=== PATIENT | female | born 1970 | race Caucasian/White ===

== ENCOUNTER 2017-08-04 08:32 | Emergency (ER) | payer OTHER, SELFPAY ==
[~2017-08-04 08:32] MED LIST: ACEBUTCAFT PO; ALPR.5 PO; AMIT10 PO; AMITRIPTYLINE; AMOX500 PO; AZIT250 PO; BENTYL20 MG PO; BENZ100A PO; BUPR1 TD; BUPR100 PO; BUPR150T2; BUTRANS; CAMBIA50 MG PO; CEPH500 PO; CIPR500 PO; CIPRSO OD; CITA20; CITA20 PO; CLIN300 PO; CRUTCH2 USE; CRUTCH4 USE; CYCL10; CYCL10 PO; DOXE25 PO; DULO60 PO; ESCI10; EXCEDRINE MIGRAINE; FENT100TP TOP; FENT25TP TOP; FENT50TP TOP; FENTANYL; FIORICET 50-321 EACH PO; FLEXERIL; FROV2.5; GABA300 PO; GENT.3OPO TOP; GUAPSEER PO; HYDACE10B PO; HYDACE5; HYDACE5 PO; HYDACE5325 PO; HYDACE7.5 PO; HYDMOR2; HYDMOR4 PO; HYDMOR8 PO; HYDPAM50 PO; HYDR1TAB94 PO; HYOS.125L SL; IBUP200; IBUP400 PO; IBUP800 PO; INAPSINE; Inderal40 MG PO; Inderal60 MG PO; Inderal80 MG PO; LAMO100 PO; LEVOTHYROXINE; LEVSOD100; LEVSOD125; LEVSOD125 PO; LEVSOD150 PO; LEVSOD175 PO; LORA1 PO; LOSARTAN POTASS50 MG PO; MECL25 PO; META800 PO; MOMENI; MORP15ER PO; NAPR500 PO; NAPR550 PO; NORCO; NORT25 PO; ONABOTULINUMTOXINA; ONDA4ODT MM; ONDA4ODT SL; ONDA8ODT MM; OXYACE5T PO; OXYACE7.5T PO; OXYC10TA19 PO; OXYCODONE; PHENERGAN25 MG RC; PRED10 PO; PREG150 PO; PREG75 PO; PROM25; PROM25 PO; PROM25 PR; PROM25S PR; PROMETHAZINE; PROP10 PO; PROP120ER PO; PROPRANOLOL; PSEU30 PO; Percocet 10-321 EACH PO; RANI150 PO; RELISTOR12 MG/0.6; RXHYDACE PO; RXHYOS.125 PO; RXHYOS.125 SL; RXMETA800 PO; RXNAPNA550 PO; RXPROM25S PR; SUMA6I SC; SYNTHROID; Synthroid/Levo0.2 MG PO; Synthroid175 MCG PO; TERB250 PO; TIZA4 PO; TOPI50 PO; TRAM50 PO; VENL150ER PO; VENL37.5 PO; VENL37.5ER PO; VENL75; VIT; Vistaril50 MG PO; ZOLM5 PO; Zantac150 MG PO; Zofran Odt4 MG SL; [UNRECOGNIZED DRUG - OTHER] PO; [UNRECOGNIZED DRUG - REMARK]
[2018-02-26] MEDS ORDERED: ROXICODONE5 MG PO (14:13)
[2018-02-26] MEDS ORDERED: LORA.5 PO (14:13)
[2018-06-30] MEDS ORDERED: Zofran Odt4 MG SL (19:07)
[2018-06-30] MEDS ORDERED: KETO10 PO (20:26)
[2018-07-27] MEDS ORDERED: Roxicodone15 MG PO (14:11)
[2018-07-27] MEDS ORDERED: CLON.5 PO (14:12)
[2018-07-27] MEDS ORDERED: PROM25 PO (14:15)
[2018-07-27] MEDS ORDERED: Phenergan25 M1 PO (17:01)
[2018-07-27] MEDS ORDERED: Phenergan25 MG PR (17:01)
[2019-01-10] MEDS ORDERED: Percocet 5-3251 EACH PO (12:14)
== END 2017-08-04 08:40 | disposition left against medical advice (07) ==
LOC: ER 08:32
DX: Z53.21 Procedure and treatment not carried out due to patient leaving prior to being seen by health care provider (principal)

== ENCOUNTER 2017-08-30 17:27 | Emergency (ER) | payer OTHER, SELFPAY ==
[~2017-08-30] VITALS: Ht 167.6 cm; Wt 99.8 kg
[2018-02-26] MEDS ORDERED: LORA.5 PO (14:13)
[2018-02-26] MEDS ORDERED: ROXICODONE5 MG PO (14:13)
[2018-06-30] MEDS ORDERED: Zofran Odt4 MG SL (19:07)
[2018-06-30] MEDS ORDERED: KETO10 PO (20:26)
[2018-07-27] MEDS ORDERED: Roxicodone15 MG PO (14:11)
[2018-07-27] MEDS ORDERED: CLON.5 PO (14:12)
[2018-07-27] MEDS ORDERED: PROM25 PO (14:15)
[2018-07-27] MEDS ORDERED: Phenergan25 MG PR (17:01)
[2018-07-27] MEDS ORDERED: Phenergan25 M1 PO (17:01)
== END 2017-08-30 17:42 | disposition left against medical advice (07) ==
LOC: ER 17:27
DX: Z53.21 Procedure and treatment not carried out due to patient leaving prior to being seen by health care provider (principal)

== ENCOUNTER 2017-08-30 18:35 | Emergency (ER) | payer OTHER, SELFPAY ==
[~2017-08-30] VITALS: Ht 167.6 cm; Wt 99.8 kg
[2018-02-26] MEDS ORDERED: ROXICODONE5 MG PO (14:13)
[2018-02-26] MEDS ORDERED: LORA.5 PO (14:13)
[2018-06-30] MEDS ORDERED: Zofran Odt4 MG SL (19:07)
[2018-06-30] MEDS ORDERED: KETO10 PO (20:26)
[2018-07-27] MEDS ORDERED: Roxicodone15 MG PO (14:11)
[2018-07-27] MEDS ORDERED: CLON.5 PO (14:12)
[2018-07-27] MEDS ORDERED: PROM25 PO (14:15)
[2018-07-27] MEDS ORDERED: Phenergan25 M1 PO (17:01)
[2018-07-27] MEDS ORDERED: Phenergan25 MG PR (17:01)
== END 2017-08-30 20:08 | disposition home or self-care (01) ==
LOC: ER 18:35
DX: F41.9 Anxiety disorder, unspecified (principal); Z88.2 Allergy status to sulfonamides; Z88.8 Allergy status to other drugs, medicaments and biological substances; Z79.899 Other long term (current) drug therapy; Z90.710 Acquired absence of both cervix and uterus; Z90.89 Acquired absence of other organs
CPT/HCPCS: 96372; 99283; J2060

== ENCOUNTER 2017-09-16 05:03 | Emergency (ER) | payer SELFPAY ==
[~2017-09-16] VITALS: Ht 167.6 cm; Wt 99.8 kg
[2017-09-16] MEDS ORDERED: BP MED (05:17)
[2018-02-26] MEDS ORDERED: ROXICODONE5 MG PO (14:13)
[2018-02-26] MEDS ORDERED: LORA.5 PO (14:13)
[2018-06-30] MEDS ORDERED: Zofran Odt4 MG SL (19:07)
[2018-06-30] MEDS ORDERED: KETO10 PO (20:26)
[2018-07-27] MEDS ORDERED: Roxicodone15 MG PO (14:11)
[2018-07-27] MEDS ORDERED: CLON.5 PO (14:12)
[2018-07-27] MEDS ORDERED: PROM25 PO (14:15)
[2018-07-27] MEDS ORDERED: Phenergan25 M1 PO (17:01)
[2018-07-27] MEDS ORDERED: Phenergan25 MG PR (17:01)
== END 2017-09-16 06:09 | disposition home or self-care (01) ==
LOC: ER 05:03
DX: R51 Headache (principal); Z88.2 Allergy status to sulfonamides; Z88.8 Allergy status to other drugs, medicaments and biological substances; Z79.899 Other long term (current) drug therapy; G43.909 Migraine, unspecified, not intractable, without status migrainosus; F41.9 Anxiety disorder, unspecified; Z87.891 Personal history of nicotine dependence
CPT/HCPCS: 96372; 99283; J1200; J1885; J2550

== ENCOUNTER 2017-09-19 17:58 | Emergency (ER) | payer SELFPAY ==
[~2017-09-19] VITALS: Ht 167.6 cm; Wt 99.8 kg
[~2017-09-19 17:58] MED LIST changes: +BP MED
[2017-09-19] MEDS ORDERED: PROPRANOL (18:19)
[2018-02-26] MEDS ORDERED: ROXICODONE5 MG PO (14:13)
[2018-02-26] MEDS ORDERED: LORA.5 PO (14:13)
[2018-06-30] MEDS ORDERED: Zofran Odt4 MG SL (19:07)
[2018-06-30] MEDS ORDERED: KETO10 PO (20:26)
[2018-07-27] MEDS ORDERED: Roxicodone15 MG PO (14:11)
[2018-07-27] MEDS ORDERED: CLON.5 PO (14:12)
[2018-07-27] MEDS ORDERED: PROM25 PO (14:15)
[2018-07-27] MEDS ORDERED: Phenergan25 MG PR (17:01)
[2018-07-27] MEDS ORDERED: Phenergan25 M1 PO (17:01)
== END 2017-09-19 20:39 | disposition home or self-care (01) ==
LOC: ER 17:58
DX: F41.0 Panic disorder [episodic paroxysmal anxiety] (principal); Z88.2 Allergy status to sulfonamides; Z88.8 Allergy status to other drugs, medicaments and biological substances; Z79.899 Other long term (current) drug therapy; Z90.710 Acquired absence of both cervix and uterus; Z90.89 Acquired absence of other organs; Z87.891 Personal history of nicotine dependence
CPT/HCPCS: 99283

== ENCOUNTER 2017-09-28 18:28 | Emergency (ER) | payer SELFPAY ==
[~2017-09-28] VITALS: Ht 167.6 cm; Wt 99.8 kg
[~2017-09-28 18:28] MED LIST changes: +PROPRANOL
[2017-09-28 19:55] LABS: BASOPHILS ABSOLUTE AUTO 0.04 K/mm3 (0.00-0.23); BASOPHILS PERCENT AUTO 0 % (0-2); EOSINOPHILS ABSOLUTE AUTO 0.05 K/mm3 (0.00-0.68); EOSINOPHILS PERCENT AUTO 1 % (0-6); Hematocrit 40.2 % (33.0-51.0); Hemoglobin 14.1 g/dL (11.5-16.0); IMMATURE GRAN ABSOLUTE AUTO 0.04 K/mm3 (0.00-0.10); IMMATURE GRAN PERCENT AUTO 0 % (0-1); LYMPHOCYTES ABSOLUTE AUTO 1.06 K/mm3 (0.84-5.20); LYMPHOCYTES PERCENT AUTO 10 % (21-46); MONOCYTES ABSOLUTE AUTO 0.57 K/mm3 (0.16-1.47); MONOCYTES PERCENT AUTO 6 % (4-13); Mean Corpuscular HGB 30.6 pg (26.0-34.0); Mean Corpuscular HGB Conc 35.1 g/dL (31.5-36.5); Mean Corpuscular Volume 87 fL (80-100); Mean Platelet Volume 9.6 fL (9.1-12.4); NEUTROPHILS ABSOLUTE AUTO 8.44 K/mm3 (1.96-9.15); NEUTROPHILS PERCENT AUTO 83 % (41-73); Platelet Count 334 K/mm3 (150-400); RDW Coefficient Variation 12.3 % (11.7-14.2); RDW Standard Deviation 39.3 fL (35.1-46.3); Red Blood Cell Count 4.61 M/mm3 (3.80-5.20)
[2017-09-28 20:16] LABS: Alanine Aminotransfer (ALT/SGP 24 U/L (12-78); Albumin, Blood 3.6 g/dL (3.4-5.0); Alk Phos 79 U/L (50-136); Anion Gap 10 mmol/L (6-16); Aspartate Aminotrans (AST/SGOT 17 U/L (12-37); Bilirubin, Total 0.8 mg/dL (0.1-1.0); Blood Urea Nitrogen 12 mg/dL (8-24); Bun/Creatinine Ratio 12.6 (12.0-20.0); CO2, Blood 22 mmol/L (21-32); Calcium, Blood 9.6 mg/dL (8.5-10.1); Chloride, Blood 110 mmol/L (98-108); Creatinine, Blood 0.96 mg/dL (0.40-1.00); Globulin, Blood 3.7 g/dL (2.2-4.0); Glomerular Filtration Rate >60 (60-); Glucose, Blood 114 mg/dL (70-99); Sodium, Blood 142 mmol/L (136-145); Total Protein, Blood 7.3 g/dL (6.4-8.2)
[2017-09-28 21:08] LABS: Ethanol (Alcohol), Blood, Med <3 mg/dL
[2017-09-28 22:29] LABS: Source, Urine Clean Catch
[2017-09-28 22:36] LABS: Bilirubin, Urine Neg (Neg); Blood, Urine 1+ (Neg); Glucose Qualitative, Urine Neg (Neg); Ketones, Urine Neg (Neg); Leukocyte Esterase, Urine 3+ (Neg); Nitrite, Urine Neg (Neg); Protein, Urine 2+ (Neg); Urobilinogen, Urine NORM (Normal)
[2017-09-28 22:43] LABS: Appearance, Urine Hazy (Clear); Color, Urine Yellow (P-Yellow)
[2017-09-28 22:44] LABS: Bacteria Many /hpf; Squamous Epithelial Cells Few /hpf (Few); White Blood Cells, Urine 25-50 /hpf (0-5)
[2017-09-28] MEDS ORDERED: Zofran8 MG PO (22:48)
[2017-09-28] MEDS ORDERED: Amoxicillin500 MG PO (22:48)
[2017-09-28 23:03] LABS: U Amphetamine Screen Not Detected; U Barbituate Screen Not Detected; U Benzodiazapine Screen DETECTED; U Buprenorphine Screen Not Detected; U Cannabinoids Screen DETECTED; U Cocaine Screen Not Detected; U Methadone Screen Not Detected; U Methamphetamine Screen Not Detected; U Opiates Screen DETECTED; U Oxycodone Screen DETECTED; U Phencyclidine Screen Not Detected; U Propoxyphene Screen Not Detected
[2018-02-26] MEDS ORDERED: LORA.5 PO (14:13)
[2018-02-26] MEDS ORDERED: ROXICODONE5 MG PO (14:13)
[2018-06-30] MEDS ORDERED: Zofran Odt4 MG SL (19:07)
[2018-06-30] MEDS ORDERED: KETO10 PO (20:26)
[2018-07-27] MEDS ORDERED: Roxicodone15 MG PO (14:11)
[2018-07-27] MEDS ORDERED: CLON.5 PO (14:12)
[2018-07-27] MEDS ORDERED: PROM25 PO (14:15)
[2018-07-27] MEDS ORDERED: Phenergan25 M1 PO (17:01)
[2018-07-27] MEDS ORDERED: Phenergan25 MG PR (17:01)
== END 2017-09-28 23:15 | disposition home or self-care (01) ==
LOC: ER 18:28
PROVIDERS: Emergency Medicine
DX: R10.33 Periumbilical pain (principal); N39.0 Urinary tract infection, site not specified; I10 Essential (primary) hypertension; E03.9 Hypothyroidism, unspecified; Z90.710 Acquired absence of both cervix and uterus; Z90.89 Acquired absence of other organs; Z87.891 Personal history of nicotine dependence; Z86.59 Personal history of other mental and behavioral disorders
CPT/HCPCS: 36415; 51701; 74177; 80053; 81001; 83690; 85025; 87086; 96374; 96375; 96376; 99284; G0480; J0696; J1170; J2060; J2405; J7120; Q9967

== ENCOUNTER 2017-09-30 08:05 | Emergency (ER) | payer OTHER, SELFPAY ==
[~2017-09-30] VITALS: Ht 167.6 cm; Wt 99.8 kg
[~2017-09-30 08:05] MED LIST changes: +Amoxicillin500 MG PO; +Zofran8 MG PO
[2017-09-30 09:47] LABS: BASOPHILS ABSOLUTE AUTO 0.05 K/mm3 (0.00-0.23); BASOPHILS PERCENT AUTO 1 % (0-2); EOSINOPHILS ABSOLUTE AUTO 0.14 K/mm3 (0.00-0.68); EOSINOPHILS PERCENT AUTO 2 % (0-6); Hematocrit 41.2 % (33.0-51.0); IMMATURE GRAN ABSOLUTE AUTO 0.02 K/mm3 (0.00-0.10); IMMATURE GRAN PERCENT AUTO 0 % (0-1); LYMPHOCYTES ABSOLUTE AUTO 1.44 K/mm3 (0.84-5.20); LYMPHOCYTES PERCENT AUTO 19 % (21-46); MONOCYTES ABSOLUTE AUTO 0.73 K/mm3 (0.16-1.47); MONOCYTES PERCENT AUTO 10 % (4-13); Mean Corpuscular HGB 30.2 pg (26.0-34.0); Mean Corpuscular Volume 89 fL (80-100); Mean Platelet Volume 9.6 fL (9.1-12.4); NEUTROPHILS ABSOLUTE AUTO 5.08 K/mm3 (1.96-9.15); NEUTROPHILS PERCENT AUTO 68 % (41-73); Platelet Count 300 K/mm3 (150-400); RDW Coefficient Variation 12.1 % (11.7-14.2); RDW Standard Deviation 39.5 fL (35.1-46.3); Red Blood Cell Count 4.63 M/mm3 (3.80-5.20); White Blood Cell Count 7.46 K/mm3 (4.00-11.30)
[2017-09-30 10:05] LABS: Alanine Aminotransfer (ALT/SGP 30 U/L (12-78); Albumin, Blood 3.8 g/dL (3.4-5.0); Alk Phos 76 U/L (50-136); Anion Gap 11 mmol/L (6-16); Aspartate Aminotrans (AST/SGOT 18 U/L (12-37); Bilirubin, Total 0.7 mg/dL (0.1-1.0); Blood Urea Nitrogen 13 mg/dL (8-24); Bun/Creatinine Ratio 14.4 (12.0-20.0); CO2, Blood 23 mmol/L (21-32); Calcium, Blood 8.9 mg/dL (8.5-10.1); Chloride, Blood 108 mmol/L (98-108); Globulin, Blood 3.7 g/dL (2.2-4.0); Glomerular Filtration Rate >60 (60-); Glucose, Blood 96 mg/dL (70-99); Potassium, Blood 3.4 mmol/L (3.5-5.5); Sodium, Blood 142 mmol/L (136-145); Total Protein, Blood 7.5 g/dL (6.4-8.2)
[2017-09-30 12:38] LABS: Source, Urine Clean Catch
[2017-09-30 12:41] LABS: Blood, Urine 1+ (Neg); Glucose Qualitative, Urine Neg (Neg); Ketones, Urine 1+ (Neg); Leukocyte Esterase, Urine 3+ (Neg); Nitrite, Urine Pos (Neg); Protein, Urine 2+ (Neg); Specific Gravity, Urine 1.015 (1.003-1.022); Urobilinogen, Urine 2+ (Normal); pH, Urine 6.5 (5.0-8.0)
[2017-09-30 12:47] LABS: Appearance, Urine Hazy (Clear); Bilirubin, Urine 2+ (Neg); Color, Urine Orange (P-Yellow)
[2017-09-30 12:49] LABS: Bacteria Mod /hpf; Squamous Epithelial Cells Mod /hpf (Few); White Blood Cells, Urine 25-50 /hpf (0-5)
[2018-02-26] MEDS ORDERED: LORA.5 PO (14:13)
[2018-02-26] MEDS ORDERED: ROXICODONE5 MG PO (14:13)
[2018-06-30] MEDS ORDERED: Zofran Odt4 MG SL (19:07)
[2018-06-30] MEDS ORDERED: KETO10 PO (20:26)
[2018-07-27] MEDS ORDERED: Roxicodone15 MG PO (14:11)
[2018-07-27] MEDS ORDERED: CLON.5 PO (14:12)
[2018-07-27] MEDS ORDERED: PROM25 PO (14:15)
[2018-07-27] MEDS ORDERED: Phenergan25 M1 PO (17:01)
[2018-07-27] MEDS ORDERED: Phenergan25 MG PR (17:01)
== END 2017-09-30 14:02 | disposition home or self-care (01) ==
LOC: ER 08:05
PROVIDERS: Emergency Medicine
DX: N39.0 Urinary tract infection, site not specified (principal); R11.2 Nausea with vomiting, unspecified; Z88.2 Allergy status to sulfonamides; Z88.8 Allergy status to other drugs, medicaments and biological substances; Z79.899 Other long term (current) drug therapy; Z79.2 Long term (current) use of antibiotics; G43.909 Migraine, unspecified, not intractable, without status migrainosus; F41.9 Anxiety disorder, unspecified
CPT/HCPCS: 36415; 80053; 81001; 81025; 83690; 85025; 87086; 96365; 96375; 99284; J0696; J1200; J1885; J2405; J2550; J3010; J7030

== ENCOUNTER 2017-10-24 17:44 | Emergency (ER) | payer OTHER, SELFPAY ==
[~2017-10-24] VITALS: Ht 167.6 cm; Wt 99.3 kg
[2017-10-24] MEDS ORDERED: LISI5 (18:51)
[2018-02-26] MEDS ORDERED: LORA.5 PO (14:13)
[2018-02-26] MEDS ORDERED: ROXICODONE5 MG PO (14:13)
[2018-06-30] MEDS ORDERED: Zofran Odt4 MG SL (19:07)
[2018-06-30] MEDS ORDERED: KETO10 PO (20:26)
[2018-07-27] MEDS ORDERED: Roxicodone15 MG PO (14:11)
[2018-07-27] MEDS ORDERED: CLON.5 PO (14:12)
[2018-07-27] MEDS ORDERED: PROM25 PO (14:15)
[2018-07-27] MEDS ORDERED: Phenergan25 MG PR (17:01)
[2018-07-27] MEDS ORDERED: Phenergan25 M1 PO (17:01)
== END 2017-10-24 20:13 | disposition home or self-care (01) ==
LOC: ER 17:44
DX: F41.8 Other specified anxiety disorders (principal); Z87.891 Personal history of nicotine dependence; Z88.2 Allergy status to sulfonamides; Z88.8 Allergy status to other drugs, medicaments and biological substances; Z79.899 Other long term (current) drug therapy
CPT/HCPCS: 99283

== ENCOUNTER 2017-12-28 23:23 | Emergency (ER) | payer OTHER ==
[~2017-12-28 23:23] MED LIST changes: +LISI5
== END 2017-12-28 23:46 | disposition left against medical advice (07) ==
LOC: ER 23:23
DX: Z53.21 Procedure and treatment not carried out due to patient leaving prior to being seen by health care provider (principal)

== ENCOUNTER 2018-01-19 14:23 | Emergency (ER) | payer SELFPAY ==
[2018-01-19] MEDS ORDERED: LORA1 PO (18:25)
== END 2018-01-19 15:09 | disposition left against medical advice (07) ==
LOC: ER 14:23
DX: Z53.21 Procedure and treatment not carried out due to patient leaving prior to being seen by health care provider (principal)

== ENCOUNTER 2018-01-19 17:33 | Emergency (ER) | payer SELFPAY ==
[~2018-01-19] VITALS: Ht 167.6 cm; Wt 104.3 kg
[2018-01-19] MEDS ORDERED: LORA1 PO (18:25)
== END 2018-01-19 19:28 | disposition left against medical advice (07) ==
LOC: ER 17:33
DX: Z53.21 Procedure and treatment not carried out due to patient leaving prior to being seen by health care provider (principal)

== ENCOUNTER 2018-01-26 13:56 | Inpatient (IN) | payer SELFPAY ==
[~2018-01-26] VITALS: Ht 167.6 cm; Wt 96.7 kg
[2018-01-26 15:46] LABS: BASOPHILS ABSOLUTE AUTO 0.08 K/mm3 (0.00-0.23); BASOPHILS PERCENT AUTO 0 % (0-2); EOSINOPHILS ABSOLUTE AUTO 0.05 K/mm3 (0.00-0.68); EOSINOPHILS PERCENT AUTO 0 % (0-6); Hematocrit 47.6 % (33.0-51.0); Hemoglobin 16.7 g/dL (11.5-16.0); IMMATURE GRAN ABSOLUTE AUTO 0.09 K/mm3 (0.00-0.10); IMMATURE GRAN PERCENT AUTO 0 % (0-1); LYMPHOCYTES ABSOLUTE AUTO 1.85 K/mm3 (0.84-5.20); LYMPHOCYTES PERCENT AUTO 8 % (21-46); MONOCYTES ABSOLUTE AUTO 1.17 K/mm3 (0.16-1.47); MONOCYTES PERCENT AUTO 5 % (4-13); Mean Corpuscular HGB 30.8 pg (26.0-34.0); Mean Corpuscular HGB Conc 35.1 g/dL (31.5-36.5); Mean Corpuscular Volume 88 fL (80-100); Mean Platelet Volume 9.6 fL (9.1-12.4); NEUTROPHILS ABSOLUTE AUTO 19.66 K/mm3 (1.96-9.15); NEUTROPHILS PERCENT AUTO 86 % (41-73); Platelet Count 512 K/mm3 (150-400); RDW Coefficient Variation 12.3 % (11.7-14.2); RDW Standard Deviation 39.4 fL (35.1-46.3); Red Blood Cell Count 5.42 M/mm3 (3.80-5.20)
[2018-01-26 16:05] LABS: Alanine Aminotransfer (ALT/SGP 17 U/L (12-78); Albumin, Blood 4.6 g/dL (3.4-5.0); Albumin/Globulin Ratio 1.1 (0.8-1.8); Alk Phos 95 U/L (50-136); Anion Gap 13 mmol/L (6-16); Aspartate Aminotrans (AST/SGOT 14 U/L (12-37); Bilirubin, Total 1.1 mg/dL (0.1-1.0); Blood Urea Nitrogen 20 mg/dL (8-24); Bun/Creatinine Ratio 20.3 (12.0-20.0); CO2, Blood 18 mmol/L (21-32); Calcium, Blood 10.4 mg/dL (8.5-10.1); Chloride, Blood 105 mmol/L (98-108); Creatinine, Blood 0.98 mg/dL (0.40-1.00); Globulin, Blood 4.3 g/dL (2.2-4.0); Glomerular Filtration Rate >60 (60-); Glucose, Blood 102 mg/dL (70-99); Potassium, Blood 3.6 mmol/L (3.5-5.5); Sodium, Blood 136 mmol/L (136-145); Total Protein, Blood 8.9 g/dL (6.4-8.2)
[2018-01-26 20:23] LABS: CHOL/HDL RATIO 6.5; Cholesterol 373 mg/dL (50-200); HDL Cholesterol 57 mg/dL (>39); LDL/HDL RATIO 4.7; Low Density Lipoprotein Chol 265 mg/dL (0-110); Triglycerides 253 mg/dL (30-160); Very Low Density Lipoprot Chol 50 mg/dL (6-32)
[2018-01-26] MEDS ORDERED: PROM25 PO (22:15)
[2018-01-26] MEDS ORDERED: OMEPRAZOLE MAGN20 MG PO (22:16)
[2018-01-27 00:39] LABS: Source, Urine Clean Catch
[2018-01-27 00:41] LABS: Bilirubin, Urine Neg (Neg); Blood, Urine Neg (Neg); Glucose Qualitative, Urine Neg (Neg); Ketones, Urine Neg (Neg); Leukocyte Esterase, Urine Neg (Neg); Nitrite, Urine Neg (Neg); Protein, Urine 3+ (Neg); Urobilinogen, Urine NORM (Normal)
[2018-01-27 00:48] LABS: Appearance, Urine Cloudy (Clear); Color, Urine Yellow (P-Yellow)
[2018-01-27 00:49] LABS: Amorphous Heavy (0-Heavy); Bacteria Mod /hpf; Red Blood Cells, Urine 0-2 /hpf (0-2); Squamous Epithelial Cells Few /hpf (Few)
[2018-01-27 03:49] LABS: Hematocrit 42.9 % (33.0-51.0); Hemoglobin 14.7 g/dL (11.5-16.0); Mean Corpuscular HGB 30.6 pg (26.0-34.0); Mean Corpuscular HGB Conc 34.3 g/dL (31.5-36.5); Mean Corpuscular Volume 89 fL (80-100); Mean Platelet Volume 9.5 fL (9.1-12.4); Platelet Count 380 K/mm3 (150-400); RDW Coefficient Variation 12.3 % (11.7-14.2); RDW Standard Deviation 40.7 fL (35.1-46.3); Red Blood Cell Count 4.81 M/mm3 (3.80-5.20); White Blood Cell Count 12.03 K/mm3 (4.00-11.30)
[2018-01-27 04:08] LABS: Albumin, Blood 3.8 g/dL (3.4-5.0); Albumin/Globulin Ratio 1.1 (0.8-1.8); Bilirubin, Total 1.1 mg/dL (0.1-1.0); Bun/Creatinine Ratio 20.7 (12.0-20.0); Creatinine, Blood 1.16 mg/dL (0.40-1.00); Globulin, Blood 3.6 g/dL (2.2-4.0); Potassium, Blood 3.7 mmol/L (3.5-5.5); Total Protein, Blood 7.4 g/dL (6.4-8.2)
[2018-01-28 04:55] LABS: Hematocrit 38.2 % (33.0-51.0); Mean Corpuscular HGB 30.6 pg (26.0-34.0); Mean Corpuscular Volume 90 fL (80-100); Mean Platelet Volume 9.8 fL (9.1-12.4); Platelet Count 305 K/mm3 (150-400); RDW Coefficient Variation 12.3 % (11.7-14.2); RDW Standard Deviation 40.7 fL (35.1-46.3); Red Blood Cell Count 4.25 M/mm3 (3.80-5.20); White Blood Cell Count 6.73 K/mm3 (4.00-11.30)
[2018-01-28 05:21] LABS: Anion Gap 8 mmol/L (6-16); Blood Urea Nitrogen 16 mg/dL (8-24); Bun/Creatinine Ratio 16.2 (12.0-20.0); CO2, Blood 22 mmol/L (21-32); Calcium, Blood 8.6 mg/dL (8.5-10.1); Chloride, Blood 110 mmol/L (98-108); Creatinine, Blood 0.99 mg/dL (0.40-1.00); Glomerular Filtration Rate >60 (60-); Glucose, Blood 80 mg/dL (70-99); Potassium, Blood 3.7 mmol/L (3.5-5.5); Sodium, Blood 140 mmol/L (136-145)
[2018-01-29 04:43] LABS: Albumin, Blood 3.5 g/dL (3.4-5.0); Anion Gap 10 mmol/L (6-16); Blood Urea Nitrogen 15 mg/dL (8-24); Bun/Creatinine Ratio 16.6 (12.0-20.0); CO2, Blood 22 mmol/L (21-32); Calcium, Blood 8.7 mg/dL (8.5-10.1); Chloride, Blood 110 mmol/L (98-108); Glomerular Filtration Rate >60 (60-); Glucose, Blood 94 mg/dL (70-99); Potassium, Blood 3.6 mmol/L (3.5-5.5); Sodium, Blood 142 mmol/L (136-145)
[2018-01-30 05:32] LABS: Hematocrit 41.2 % (33.0-51.0); Hemoglobin 13.6 g/dL (11.5-16.0); Mean Corpuscular Volume 91 fL (80-100); Mean Platelet Volume 9.9 fL (9.1-12.4); Platelet Count 332 K/mm3 (150-400); RDW Coefficient Variation 12.6 % (11.7-14.2); RDW Standard Deviation 41.6 fL (35.1-46.3); Red Blood Cell Count 4.54 M/mm3 (3.80-5.20); White Blood Cell Count 7.85 K/mm3 (4.00-11.30)
[2018-01-30 05:32] LABS: Adenovirus F 40/41 Not Detected (NOT DETECT); Astrovirus Not Detected (NOT DETECT); Campylobacter Sp Not Detected (NOT DETECT); Cryptosporidium Not Detected (NOT DETECT); Cyclospora Cayetanensis Not Detected (NOT DETECT); E. Coli O157 Not Detected (NOT DETECT); Entamoeba Histolytica Not Detected (NOT DETECT); Enteroaggregative E. coli-EAEC Not Detected (NOT DETECT); Enteropathogenic E. coli-EPEC Not Detected (NOT DETECT); Enterotoxigenic E. coli-ETEC Not Detected (NOT DETECT); Giardia Lamblia Not Detected (NOT DETECT); Norovirus GI/GII Not Detected (NOT DETECT); Plesiomonas Shigelloides Not Detected (NOT DETECT); Rotavirus A Not Detected (NOT DETECT); Salmonella Sp Not Detected (NOT DETECT); Sapovirus Not Detected (NOT DETECT); Shiga Toxin-prod E. coli-STEC Not Detected (NOT DETECT); Shigella/Enteroin E. coli-EIEC Not Detected (NOT DETECT); Vibrio Cholerae Not Detected (NOT DETECT); Vibrio Sp Not Detected (NOT DETECT); Yersinia Enterocolitica Not Detected (NOT DETECT)
[2018-01-30 05:50] LABS: Albumin, Blood 3.4 g/dL (3.4-5.0); Anion Gap 9 mmol/L (6-16); Blood Urea Nitrogen 13 mg/dL (8-24); Bun/Creatinine Ratio 12.4 (12.0-20.0); CO2, Blood 24 mmol/L (21-32); Calcium, Blood 8.8 mg/dL (8.5-10.1); Chloride, Blood 109 mmol/L (98-108); Creatinine, Blood 1.05 mg/dL (0.40-1.00); Glomerular Filtration Rate 60 (60-); Glucose, Blood 109 mg/dL (70-99); Phosphorus, Blood 3.2 mg/dL (2.5-4.9); Potassium, Blood 3.2 mmol/L (3.5-5.5); Sodium, Blood 142 mmol/L (136-145)
[2018-01-31 04:53] LABS: Anion Gap 8 mmol/L (6-16); Blood Urea Nitrogen 11 mg/dL (8-24); Bun/Creatinine Ratio 11.9 (12.0-20.0); CO2, Blood 24 mmol/L (21-32); Chloride, Blood 111 mmol/L (98-108); Creatinine, Blood 0.92 mg/dL (0.40-1.00); Glomerular Filtration Rate >60 (60-); Glucose, Blood 104 mg/dL (70-99); Potassium, Blood 3.7 mmol/L (3.5-5.5); Sodium, Blood 143 mmol/L (136-145)
[2018-01-31 05:21] LABS: BASOPHILS ABSOLUTE AUTO 0.04 K/mm3 (0.00-0.23); BASOPHILS PERCENT AUTO 1 % (0-2); EOSINOPHILS ABSOLUTE AUTO 0.27 K/mm3 (0.00-0.68); EOSINOPHILS PERCENT AUTO 4 % (0-6); Hematocrit 40.1 % (33.0-51.0); Hemoglobin 13.4 g/dL (11.5-16.0); IMMATURE GRAN ABSOLUTE AUTO 0.03 K/mm3 (0.00-0.10); IMMATURE GRAN PERCENT AUTO 0 % (0-1); LYMPHOCYTES ABSOLUTE AUTO 2.39 K/mm3 (0.84-5.20); LYMPHOCYTES PERCENT AUTO 32 % (21-46); MONOCYTES ABSOLUTE AUTO 0.68 K/mm3 (0.16-1.47); MONOCYTES PERCENT AUTO 9 % (4-13); Mean Corpuscular HGB 30.7 pg (26.0-34.0); Mean Corpuscular HGB Conc 33.4 g/dL (31.5-36.5); Mean Corpuscular Volume 92 fL (80-100); Mean Platelet Volume 10.2 fL (9.1-12.4); NEUTROPHILS PERCENT AUTO 55 % (41-73); Platelet Count 324 K/mm3 (150-400); RDW Coefficient Variation 12.5 % (11.7-14.2); RDW Standard Deviation 42.5 fL (35.1-46.3); Red Blood Cell Count 4.36 M/mm3 (3.80-5.20); White Blood Cell Count 7.51 K/mm3 (4.00-11.30)
[2018-02-02 04:42] LABS: BASOPHILS ABSOLUTE AUTO 0.04 K/mm3 (0.00-0.23); BASOPHILS PERCENT AUTO 1 % (0-2); EOSINOPHILS ABSOLUTE AUTO 0.41 K/mm3 (0.00-0.68); EOSINOPHILS PERCENT AUTO 5 % (0-6); Hematocrit 41.6 % (33.0-51.0); Hemoglobin 13.8 g/dL (11.5-16.0); IMMATURE GRAN ABSOLUTE AUTO 0.04 K/mm3 (0.00-0.10); IMMATURE GRAN PERCENT AUTO 1 % (0-1); LYMPHOCYTES ABSOLUTE AUTO 2.74 K/mm3 (0.84-5.20); LYMPHOCYTES PERCENT AUTO 36 % (21-46); MONOCYTES ABSOLUTE AUTO 0.68 K/mm3 (0.16-1.47); MONOCYTES PERCENT AUTO 9 % (4-13); Mean Corpuscular HGB 30.8 pg (26.0-34.0); Mean Corpuscular HGB Conc 33.2 g/dL (31.5-36.5); Mean Corpuscular Volume 93 fL (80-100); Mean Platelet Volume 10.2 fL (9.1-12.4); NEUTROPHILS ABSOLUTE AUTO 3.75 K/mm3 (1.96-9.15); NEUTROPHILS PERCENT AUTO 49 % (41-73); Platelet Count 288 K/mm3 (150-400); RDW Coefficient Variation 12.6 % (11.7-14.2); RDW Standard Deviation 42.7 fL (35.1-46.3); Red Blood Cell Count 4.48 M/mm3 (3.80-5.20); White Blood Cell Count 7.66 K/mm3 (4.00-11.30)
[2018-02-02 04:59] LABS: Anion Gap 10 mmol/L (6-16); Blood Urea Nitrogen 12 mg/dL (8-24); Bun/Creatinine Ratio 11.5 (12.0-20.0); CO2, Blood 22 mmol/L (21-32); Calcium, Blood 8.7 mg/dL (8.5-10.1); Chloride, Blood 110 mmol/L (98-108); Creatinine, Blood 1.04 mg/dL (0.40-1.00); Glomerular Filtration Rate >60 (60-); Glucose, Blood 91 mg/dL (70-99); Potassium, Blood 3.7 mmol/L (3.5-5.5); Sodium, Blood 142 mmol/L (136-145)
== END 2018-02-02 18:27 | disposition short-term general hospital (02) | DRG 392 ==
LOC: ER 13:56 → MEDS 20:14
PROVIDERS: Emergency Medicine; Hospitalist; Internal Medicine
DX: K52.9 Noninfective gastroenteritis and colitis, unspecified (principal); I10 Essential (primary) hypertension; E03.9 Hypothyroidism, unspecified; E87.6 Hypokalemia; E86.0 Dehydration; Z88.2 Allergy status to sulfonamides; Z88.8 Allergy status to other drugs, medicaments and biological substances; F41.9 Anxiety disorder, unspecified; E66.9 Obesity, unspecified; Z68.34 Body mass index [BMI] 34.0-34.9, adult
CPT/HCPCS: 36415; 74176; 74177; 76705; 80048; 80053; 80061; 80069; 81001; 83605; 83690; 84145; 85025; 85027; 85651; 87086; 87507; 96365; 96372; 96375; 96376; 99285; J0500; J1650; J1885; J1956; J2270; J2405; J2543; J2550; J3010; J7030; Q9967

== ENCOUNTER 2018-02-11 15:18 | Inpatient (IN) | payer SELFPAY ==
[~2018-02-11] VITALS: Ht 167.6 cm; Wt 99.1 kg
[~2018-02-11 15:18] MED LIST changes: +OMEPRAZOLE MAGN20 MG PO
[2018-02-11 16:03] LABS: BASOPHILS ABSOLUTE AUTO 0.03 K/mm3 (0.00-0.23); BASOPHILS PERCENT AUTO 0 % (0-2); EOSINOPHILS ABSOLUTE AUTO 0.21 K/mm3 (0.00-0.68); EOSINOPHILS PERCENT AUTO 2 % (0-6); Hemoglobin 14.3 g/dL (11.5-16.0); IMMATURE GRAN ABSOLUTE AUTO 0.02 K/mm3 (0.00-0.10); IMMATURE GRAN PERCENT AUTO 0 % (0-1); LYMPHOCYTES ABSOLUTE AUTO 1.86 K/mm3 (0.84-5.20); LYMPHOCYTES PERCENT AUTO 17 % (21-46); MONOCYTES ABSOLUTE AUTO 0.73 K/mm3 (0.16-1.47); MONOCYTES PERCENT AUTO 7 % (4-13); Mean Corpuscular HGB 30.7 pg (26.0-34.0); Mean Corpuscular HGB Conc 34.9 g/dL (31.5-36.5); NEUTROPHILS ABSOLUTE AUTO 8.17 K/mm3 (1.96-9.15); NEUTROPHILS PERCENT AUTO 74 % (41-73); Platelet Count 344 K/mm3 (150-400); RDW Coefficient Variation 12.3 % (11.7-14.2); RDW Standard Deviation 39.8 fL (35.1-46.3); Red Blood Cell Count 4.66 M/mm3 (3.80-5.20); White Blood Cell Count 11.02 K/mm3 (4.00-11.30)
[2018-02-11 16:04] LABS: Mean Corpuscular Volume 88 fL (80-100)
[2018-02-11 16:18] LABS: Alanine Aminotransfer (ALT/SGP 19 U/L (12-78); Albumin, Blood 3.8 g/dL (3.4-5.0); Alk Phos 82 U/L (50-136); Anion Gap 11 mmol/L (6-16); Aspartate Aminotrans (AST/SGOT 8 U/L (12-37); Bilirubin, Total 0.6 mg/dL (0.1-1.0); Blood Urea Nitrogen 10 mg/dL (8-24); Bun/Creatinine Ratio 13.2 (12.0-20.0); CO2, Blood 26 mmol/L (21-32); Calcium, Blood 9.6 mg/dL (8.5-10.1); Chloride, Blood 104 mmol/L (98-108); Creatinine, Blood 0.76 mg/dL (0.40-1.00); Globulin, Blood 3.9 g/dL (2.2-4.0); Glomerular Filtration Rate >60 (60-); Glucose, Blood 100 mg/dL (70-99); Potassium, Blood 3.4 mmol/L (3.5-5.5); Sodium, Blood 141 mmol/L (136-145); Total Protein, Blood 7.7 g/dL (6.4-8.2)
[2018-02-11 17:30] LABS: Magnesium, Blood 1.9 mg/dL (1.6-2.4)
[2018-02-11 18:06] LABS: Percent Saturation 30.4 % (15.0-50.0)
[2018-02-12 04:36] LABS: BASOPHILS ABSOLUTE AUTO 0.02 K/mm3 (0.00-0.23); BASOPHILS PERCENT AUTO 0 % (0-2); EOSINOPHILS PERCENT AUTO 6 % (0-6); Hematocrit 34.7 % (33.0-51.0); Hemoglobin 11.7 g/dL (11.5-16.0); IMMATURE GRAN ABSOLUTE AUTO 0.02 K/mm3 (0.00-0.10); IMMATURE GRAN PERCENT AUTO 0 % (0-1); LYMPHOCYTES ABSOLUTE AUTO 2.48 K/mm3 (0.84-5.20); LYMPHOCYTES PERCENT AUTO 37 % (21-46); MONOCYTES ABSOLUTE AUTO 0.52 K/mm3 (0.16-1.47); MONOCYTES PERCENT AUTO 8 % (4-13); Mean Corpuscular HGB 30.2 pg (26.0-34.0); Mean Corpuscular HGB Conc 33.7 g/dL (31.5-36.5); Mean Corpuscular Volume 90 fL (80-100); Mean Platelet Volume 9.9 fL (9.1-12.4); NEUTROPHILS ABSOLUTE AUTO 3.32 K/mm3 (1.96-9.15); NEUTROPHILS PERCENT AUTO 49 % (41-73); Platelet Count 264 K/mm3 (150-400); RDW Coefficient Variation 12.3 % (11.7-14.2); RDW Standard Deviation 40.3 fL (35.1-46.3); Red Blood Cell Count 3.87 M/mm3 (3.80-5.20); White Blood Cell Count 6.76 K/mm3 (4.00-11.30)
[2018-02-12 05:00] LABS: Alanine Aminotransfer (ALT/SGP 16 U/L (12-78); Albumin, Blood 2.9 g/dL (3.4-5.0); Alk Phos 60 U/L (50-136); Anion Gap 7 mmol/L (6-16); Aspartate Aminotrans (AST/SGOT 18 U/L (12-37); Bilirubin, Total 0.6 mg/dL (0.1-1.0); Blood Urea Nitrogen 10 mg/dL (8-24); Bun/Creatinine Ratio 13.3 (12.0-20.0); CO2, Blood 27 mmol/L (21-32); Calcium, Blood 8.1 mg/dL (8.5-10.1); Chloride, Blood 111 mmol/L (98-108); Creatinine, Blood 0.75 mg/dL (0.40-1.00); Globulin, Blood 2.9 g/dL (2.2-4.0); Glomerular Filtration Rate >60 (60-); Glucose, Blood 85 mg/dL (70-99); Magnesium, Blood 1.8 mg/dL (1.6-2.4); Potassium, Blood 3.4 mmol/L (3.5-5.5); Sodium, Blood 145 mmol/L (136-145); Total Protein, Blood 5.8 g/dL (6.4-8.2)
[2018-02-13 05:16] LABS: BASOPHILS ABSOLUTE AUTO 0.03 K/mm3 (0.00-0.23); BASOPHILS PERCENT AUTO 1 % (0-2); EOSINOPHILS PERCENT AUTO 8 % (0-6); Hematocrit 35.1 % (33.0-51.0); Hemoglobin 11.8 g/dL (11.5-16.0); IMMATURE GRAN ABSOLUTE AUTO 0.02 K/mm3 (0.00-0.10); IMMATURE GRAN PERCENT AUTO 0 % (0-1); LYMPHOCYTES ABSOLUTE AUTO 2.42 K/mm3 (0.84-5.20); LYMPHOCYTES PERCENT AUTO 37 % (21-46); MONOCYTES ABSOLUTE AUTO 0.53 K/mm3 (0.16-1.47); MONOCYTES PERCENT AUTO 8 % (4-13); Mean Corpuscular HGB 30.1 pg (26.0-34.0); Mean Corpuscular HGB Conc 33.6 g/dL (31.5-36.5); Mean Corpuscular Volume 90 fL (80-100); Mean Platelet Volume 10.5 fL (9.1-12.4); NEUTROPHILS ABSOLUTE AUTO 3.03 K/mm3 (1.96-9.15); NEUTROPHILS PERCENT AUTO 46 % (41-73); Platelet Count 246 K/mm3 (150-400); RDW Coefficient Variation 12.5 % (11.7-14.2); RDW Standard Deviation 40.3 fL (35.1-46.3); Red Blood Cell Count 3.92 M/mm3 (3.80-5.20); White Blood Cell Count 6.53 K/mm3 (4.00-11.30)
[2018-02-13 05:38] LABS: Alanine Aminotransfer (ALT/SGP 18 U/L (12-78); Albumin, Blood 2.8 g/dL (3.4-5.0); Albumin/Globulin Ratio 0.9 (0.8-1.8); Alk Phos 55 U/L (50-136); Anion Gap 9 mmol/L (6-16); Aspartate Aminotrans (AST/SGOT 25 U/L (12-37); Bilirubin, Total 0.8 mg/dL (0.1-1.0); Blood Urea Nitrogen 7 mg/dL (8-24); CO2, Blood 25 mmol/L (21-32); Chloride, Blood 112 mmol/L (98-108); Glomerular Filtration Rate >60 (60-); Glucose, Blood 80 mg/dL (70-99); Potassium, Blood 4.6 mmol/L (3.5-5.5); Sodium, Blood 146 mmol/L (136-145); Total Protein, Blood 5.8 g/dL (6.4-8.2)
[2018-02-14 05:48] LABS: BASOPHILS ABSOLUTE AUTO 0.04 K/mm3 (0.00-0.23); BASOPHILS PERCENT AUTO 1 % (0-2); EOSINOPHILS ABSOLUTE AUTO 0.58 K/mm3 (0.00-0.68); EOSINOPHILS PERCENT AUTO 7 % (0-6); Hematocrit 36.9 % (33.0-51.0); Hemoglobin 12.8 g/dL (11.5-16.0); IMMATURE GRAN ABSOLUTE AUTO 0.03 K/mm3 (0.00-0.10); IMMATURE GRAN PERCENT AUTO 0 % (0-1); LYMPHOCYTES ABSOLUTE AUTO 2.47 K/mm3 (0.84-5.20); LYMPHOCYTES PERCENT AUTO 31 % (21-46); MONOCYTES ABSOLUTE AUTO 0.59 K/mm3 (0.16-1.47); MONOCYTES PERCENT AUTO 8 % (4-13); Mean Corpuscular HGB 30.1 pg (26.0-34.0); Mean Corpuscular HGB Conc 34.7 g/dL (31.5-36.5); NEUTROPHILS ABSOLUTE AUTO 4.19 K/mm3 (1.96-9.15); NEUTROPHILS PERCENT AUTO 53 % (41-73); Platelet Count 251 K/mm3 (150-400); RDW Coefficient Variation 12.2 % (11.7-14.2); RDW Standard Deviation 38.5 fL (35.1-46.3); Red Blood Cell Count 4.25 M/mm3 (3.80-5.20)
[2018-02-14 05:50] LABS: Mean Corpuscular Volume 87 fL (80-100)
[2018-02-14 06:05] LABS: Alanine Aminotransfer (ALT/SGP 17 U/L (12-78); Albumin, Blood 3.2 g/dL (3.4-5.0); Alk Phos 65 U/L (50-136); Anion Gap 8 mmol/L (6-16); Aspartate Aminotrans (AST/SGOT 13 U/L (12-37); Bilirubin, Total 0.9 mg/dL (0.1-1.0); Blood Urea Nitrogen 5 mg/dL (8-24); Bun/Creatinine Ratio 6.2 (12.0-20.0); CO2, Blood 23 mmol/L (21-32); Calcium, Blood 8.3 mg/dL (8.5-10.1); Chloride, Blood 112 mmol/L (98-108); Creatinine, Blood 0.81 mg/dL (0.40-1.00); Globulin, Blood 3.1 g/dL (2.2-4.0); Glomerular Filtration Rate >60 (60-); Glucose, Blood 86 mg/dL (70-99); Potassium, Blood 3.7 mmol/L (3.5-5.5); Sodium, Blood 143 mmol/L (136-145); Total Protein, Blood 6.3 g/dL (6.4-8.2)
[2018-02-15] MEDS ORDERED: AMIT10 PO (11:30)
[2018-02-15] MEDS ORDERED: Erythromycin500 M1 PO (11:31)
[2018-02-15] MEDS ORDERED: Dicyclomine HCl10 MG PO (11:31)
[2018-02-15] MEDS ORDERED: Prinivil10 MG PO (11:32)
[2018-02-15] MEDS ORDERED: Amitiza24 MCG PO (11:32)
[2018-02-15] MEDS ORDERED: PANT40 PO (11:33)
[2018-02-15] MEDS ORDERED: AMLO10 PO (11:33)
== END 2018-02-15 14:10 | disposition home or self-care (01) | DRG 392 ==
LOC: ER 15:18 → MEDS 17:02 → ENPENDDIS 02-15 10:00 → MEDS 02-15 14:10
PROVIDERS: Emergency Medicine; Internal Medicine; Internal Medicine Gastroenterology
PROC: 0DD68ZX Extraction of Stomach, Via Natural or Artificial Opening Endoscopic, Diagnostic (ICD-10-PCS; principal; 2018-02-13 08:30)
DX: K29.90 Gastroduodenitis, unspecified, without bleeding (principal); K51.00 Ulcerative (chronic) pancolitis without complications; R18.8 Other ascites; K92.1 Melena; G43.909 Migraine, unspecified, not intractable, without status migrainosus; E03.9 Hypothyroidism, unspecified; F31.9 Bipolar disorder, unspecified; I10 Essential (primary) hypertension; M19.90 Unspecified osteoarthritis, unspecified site; Z79.891 Long term (current) use of opiate analgesic; K52.9 Noninfective gastroenteritis and colitis, unspecified; K27.9 Peptic ulcer, site unspecified, unspecified as acute or chronic, without hemorrhage or perforation; K29.80 Duodenitis without bleeding; K29.60 Other gastritis without bleeding
CPT/HCPCS: 36415; 74177; 76705; 80053; 82728; 83540; 83550; 83690; 83735; 84443; 85025; 85651; 88305; 88342; 96361; 96374; 96375; 96376; 99285; C1751; C9113; J1885; J2250; J2405; J2550; J3010; J3480; J7030; J7120; Q9967

== ENCOUNTER 2018-02-26 13:44 | Emergency (ER) | payer OTHER ==
[~2018-02-26] VITALS: Ht 167.6 cm; Wt 90.7 kg
[~2018-02-26 13:44] MED LIST changes: +AMLO10 PO; +Amitiza24 MCG PO; +Dicyclomine HCl10 MG PO; +Erythromycin500 M1 PO; +PANT40 PO; +Prinivil10 MG PO
[2018-02-26] MEDS ORDERED: Roxicodone15 MG PO (14:13)
[2018-02-26] MEDS ORDERED: LORA1 PO (14:13)
[2018-02-26 14:41] LABS: BASOPHILS ABSOLUTE AUTO 0.04 K/mm3 (0.00-0.23); BASOPHILS PERCENT AUTO 1 % (0-2); EOSINOPHILS ABSOLUTE AUTO 0.57 K/mm3 (0.00-0.68); EOSINOPHILS PERCENT AUTO 9 % (0-6); Hematocrit 39.3 % (33.0-51.0); Hemoglobin 13.3 g/dL (11.5-16.0); IMMATURE GRAN ABSOLUTE AUTO 0.02 K/mm3 (0.00-0.10); IMMATURE GRAN PERCENT AUTO 0 % (0-1); LYMPHOCYTES ABSOLUTE AUTO 1.45 K/mm3 (0.84-5.20); LYMPHOCYTES PERCENT AUTO 24 % (21-46); MONOCYTES ABSOLUTE AUTO 0.66 K/mm3 (0.16-1.47); MONOCYTES PERCENT AUTO 11 % (4-13); Mean Corpuscular HGB 30.9 pg (26.0-34.0); Mean Corpuscular HGB Conc 33.8 g/dL (31.5-36.5); Mean Platelet Volume 9.6 fL (9.1-12.4); NEUTROPHILS ABSOLUTE AUTO 3.33 K/mm3 (1.96-9.15); NEUTROPHILS PERCENT AUTO 55 % (41-73); Platelet Count 308 K/mm3 (150-400); RDW Coefficient Variation 12.6 % (11.7-14.2); Red Blood Cell Count 4.31 M/mm3 (3.80-5.20); White Blood Cell Count 6.07 K/mm3 (4.00-11.30)
[2018-02-26 14:42] LABS: Mean Corpuscular Volume 91 fL (80-100)
[2018-02-26 15:03] LABS: Alanine Aminotransfer (ALT/SGP 24 U/L (12-78); Albumin, Blood 3.4 g/dL (3.4-5.0); Albumin/Globulin Ratio 0.9 (0.8-1.8); Alk Phos 77 U/L (50-136); Anion Gap 9 mmol/L (6-16); Aspartate Aminotrans (AST/SGOT 13 U/L (12-37); Bilirubin, Total 0.3 mg/dL (0.1-1.0); Blood Urea Nitrogen 11 mg/dL (8-24); Bun/Creatinine Ratio 12.3 (12.0-20.0); CO2, Blood 25 mmol/L (21-32); Calcium, Blood 9.1 mg/dL (8.5-10.1); Chloride, Blood 106 mmol/L (98-108); Creatinine, Blood 0.89 mg/dL (0.40-1.00); Globulin, Blood 3.6 g/dL (2.2-4.0); Glomerular Filtration Rate >60 (60-); Glucose, Blood 127 mg/dL (70-99); Potassium, Blood 3.6 mmol/L (3.5-5.5); Sodium, Blood 140 mmol/L (136-145); Troponin I <0.015 ng/mL (0.000-0.040)
== END 2018-02-26 15:57 | disposition home or self-care (01) ==
LOC: ER 13:44
PROVIDERS: Emergency Medicine
DX: F41.9 Anxiety disorder, unspecified (principal); G43.909 Migraine, unspecified, not intractable, without status migrainosus; Z88.8 Allergy status to other drugs, medicaments and biological substances; Z88.2 Allergy status to sulfonamides; Z79.899 Other long term (current) drug therapy; Z79.2 Long term (current) use of antibiotics
CPT/HCPCS: 36415; 71046; 80053; 84484; 85025; 93005; 93010; 96374; 99284; J2060

== ENCOUNTER 2018-04-24 15:02 | Emergency (ER) | payer SELFPAY ==
[~2018-04-24] VITALS: Ht 167.6 cm; Wt 95.2 kg
[~2018-04-24 15:02] MED LIST changes: +Roxicodone15 MG PO
[2018-04-24 16:31] LABS: BASOPHILS ABSOLUTE AUTO 0.06 K/mm3 (0.00-0.23); BASOPHILS PERCENT AUTO 1 % (0-2); EOSINOPHILS PERCENT AUTO 8 % (0-6); Hemoglobin 14.8 g/dL (11.5-16.0); IMMATURE GRAN ABSOLUTE AUTO 0.02 K/mm3 (0.00-0.10); IMMATURE GRAN PERCENT AUTO 0 % (0-1); LYMPHOCYTES ABSOLUTE AUTO 1.98 K/mm3 (0.84-5.20); LYMPHOCYTES PERCENT AUTO 28 % (21-46); MONOCYTES ABSOLUTE AUTO 0.59 K/mm3 (0.16-1.47); MONOCYTES PERCENT AUTO 8 % (4-13); Mean Corpuscular HGB 30.8 pg (26.0-34.0); Mean Corpuscular HGB Conc 33.6 g/dL (31.5-36.5); Mean Corpuscular Volume 92 fL (80-100); Mean Platelet Volume 9.9 fL (9.1-12.4); NEUTROPHILS ABSOLUTE AUTO 3.95 K/mm3 (1.96-9.15); NEUTROPHILS PERCENT AUTO 55 % (41-73); Platelet Count 300 K/mm3 (150-400); RDW Coefficient Variation 13.5 % (11.7-14.2); RDW Standard Deviation 46.1 fL (35.1-46.3)
[2018-04-24 16:54] LABS: Alanine Aminotransfer (ALT/SGP 25 U/L (12-78); Albumin, Blood 3.7 g/dL (3.4-5.0); Alk Phos 69 U/L (50-136); Anion Gap 7 mmol/L (6-16); Aspartate Aminotrans (AST/SGOT 16 U/L (12-37); Bilirubin, Total 0.3 mg/dL (0.1-1.0); Blood Urea Nitrogen 11 mg/dL (8-24); Bun/Creatinine Ratio 10.7 (12.0-20.0); CO2, Blood 23 mmol/L (21-32); Calcium, Blood 8.7 mg/dL (8.5-10.1); Chloride, Blood 108 mmol/L (98-108); Creatinine, Blood 1.03 mg/dL (0.40-1.00); Ethanol (Alcohol), Blood, Med <3 mg/dL; Globulin, Blood 3.6 g/dL (2.2-4.0); Glomerular Filtration Rate >60 (60-); Glucose, Blood 101 mg/dL (70-99); Sodium, Blood 138 mmol/L (136-145); Total Protein, Blood 7.3 g/dL (6.4-8.2)
[2018-04-24 18:06] LABS: Free Thyroxine 0.65 ng/dL (0.70-1.60)
[2018-04-24 18:08] LABS: Triiodothyronine, Free 2.46 pg/mL (2.18-3.98)
== END 2018-04-24 17:44 | disposition home or self-care (01) ==
LOC: ER 15:02
PROVIDERS: Emergency Medicine
DX: F41.9 Anxiety disorder, unspecified (principal); Z88.2 Allergy status to sulfonamides; Z88.8 Allergy status to other drugs, medicaments and biological substances; Z79.899 Other long term (current) drug therapy; Z79.2 Long term (current) use of antibiotics; G43.909 Migraine, unspecified, not intractable, without status migrainosus; F17.200 Nicotine dependence, unspecified, uncomplicated
CPT/HCPCS: 36415; 80053; 84439; 84443; 84481; 85025; 96374; 99283-25; G0480; J2060

== ENCOUNTER 2018-04-25 17:07 | Emergency (ER) | payer SELFPAY ==
[~2018-04-25] VITALS: Ht 167.6 cm; Wt 95.2 kg
== END 2018-04-25 18:34 | disposition home or self-care (01) ==
LOC: ER 17:07
DX: F41.9 Anxiety disorder, unspecified (principal); F17.200 Nicotine dependence, unspecified, uncomplicated; Z88.8 Allergy status to other drugs, medicaments and biological substances; Z88.2 Allergy status to sulfonamides; Z79.899 Other long term (current) drug therapy
CPT/HCPCS: 99283-25

== ENCOUNTER 2018-04-26 18:16 | Emergency (ER) | payer SELFPAY ==
[~2018-04-26] VITALS: Ht 167.6 cm; Wt 95.2 kg
== END 2018-04-26 19:35 | disposition home or self-care (01) ==
LOC: ER 18:16
DX: F41.0 Panic disorder [episodic paroxysmal anxiety] (principal); Z79.899 Other long term (current) drug therapy; Z88.2 Allergy status to sulfonamides; Z88.8 Allergy status to other drugs, medicaments and biological substances
CPT/HCPCS: 99283

== ENCOUNTER 2018-05-19 12:29 | Emergency (ER) | payer SELFPAY | END 2018-05-19 12:42 | disposition left against medical advice (07) | LOC: ER 12:29 | DX: Z53.21 Procedure and treatment not carried out due to patient leaving prior to being seen by health care provider (principal) ==

== ENCOUNTER 2018-05-30 22:44 | Emergency (ER) | payer SELFPAY ==
[~2018-05-30] VITALS: Ht 167.6 cm; Wt 90.7 kg
== END 2018-05-31 04:37 | disposition home or self-care (01) ==
LOC: ER 22:44
DX: G43.909 Migraine, unspecified, not intractable, without status migrainosus (principal); Z88.8 Allergy status to other drugs, medicaments and biological substances; Z88.2 Allergy status to sulfonamides; Z79.899 Other long term (current) drug therapy
CPT/HCPCS: 36415; 96374; 96375; 99283-25; J1100; J1200; J1885; J2550; J7030

== ENCOUNTER 2018-06-02 12:04 | Inpatient (IN) | payer OTHER ==
[~2018-06-02] VITALS: Ht 167.6 cm; Wt 92.6 kg
[2018-06-02 13:21] LABS: BASOPHILS ABSOLUTE AUTO 0.06 K/mm3 (0.00-0.23); BASOPHILS PERCENT AUTO 1 % (0-2); EOSINOPHILS ABSOLUTE AUTO 0.15 K/mm3 (0.00-0.68); EOSINOPHILS PERCENT AUTO 2 % (0-6); Hematocrit 47.3 % (33.0-51.0); Hemoglobin 16.3 g/dL (11.5-16.0); IMMATURE GRAN ABSOLUTE AUTO 0.03 K/mm3 (0.00-0.10); IMMATURE GRAN PERCENT AUTO 0 % (0-1); LYMPHOCYTES ABSOLUTE AUTO 1.73 K/mm3 (0.84-5.20); LYMPHOCYTES PERCENT AUTO 17 % (21-46); MONOCYTES PERCENT AUTO 6 % (4-13); Mean Corpuscular HGB 31.1 pg (26.0-34.0); Mean Corpuscular HGB Conc 34.5 g/dL (31.5-36.5); Mean Corpuscular Volume 90 fL (80-100); Mean Platelet Volume 9.8 fL (9.1-12.4); NEUTROPHILS ABSOLUTE AUTO 7.42 K/mm3 (1.96-9.15); NEUTROPHILS PERCENT AUTO 74 % (41-73); Platelet Count 453 K/mm3 (150-400); RDW Coefficient Variation 12.5 % (11.7-14.2); RDW Standard Deviation 41.7 fL (35.1-46.3); Red Blood Cell Count 5.24 M/mm3 (3.80-5.20); White Blood Cell Count 9.99 K/mm3 (4.00-11.30)
[2018-06-02 13:51] LABS: Alanine Aminotransfer (ALT/SGP 21 U/L (12-78); Albumin, Blood 4.1 g/dL (3.4-5.0); Albumin/Globulin Ratio 1.1 (0.8-1.8); Alk Phos 76 U/L (50-136); Anion Gap 10 mmol/L (6-16); Aspartate Aminotrans (AST/SGOT 11 U/L (12-37); Bilirubin, Total 0.7 mg/dL (0.1-1.0); Blood Urea Nitrogen 14 mg/dL (8-24); Bun/Creatinine Ratio 15.3 (12.0-20.0); CO2, Blood 20 mmol/L (21-32); Calcium, Blood 9.4 mg/dL (8.5-10.1); Chloride, Blood 109 mmol/L (98-108); Creatinine, Blood 0.91 mg/dL (0.40-1.00); Globulin, Blood 3.8 g/dL (2.2-4.0); Glomerular Filtration Rate >60 (60-); Glucose, Blood 118 mg/dL (70-99); Potassium, Blood 3.3 mmol/L (3.5-5.5); Sodium, Blood 139 mmol/L (136-145); Total Protein, Blood 7.9 g/dL (6.4-8.2)
[2018-06-02] MEDS ORDERED: Prinivil10 MG PO (16:30)
[2018-06-02 21:13] LABS: Source, Urine Clean Catch
[2018-06-02 21:17] LABS: Bilirubin, Urine Neg (Neg); Blood, Urine 1+ (Neg); Glucose Qualitative, Urine Neg (Neg); Ketones, Urine Neg (Neg); Leukocyte Esterase, Urine 1+ (Neg); Nitrite, Urine Neg (Neg); Protein, Urine 3+ (Neg); Specific Gravity, Urine 1.015 (1.003-1.022); Urobilinogen, Urine NORM (Normal)
[2018-06-02 22:58] LABS: Appearance, Urine Clear (Clear); Color, Urine Yellow (P-Yellow)
[2018-06-02 23:00] LABS: Bacteria Few /hpf; Red Blood Cells, Urine 0-2 /hpf (0-2); Squamous Epithelial Cells Few /hpf (Few)
[2018-06-03 05:31] LABS: BASOPHILS ABSOLUTE AUTO 0.05 K/mm3 (0.00-0.23); BASOPHILS PERCENT AUTO 1 % (0-2); EOSINOPHILS PERCENT AUTO 4 % (0-6); Hematocrit 42.6 % (33.0-51.0); Hemoglobin 14.3 g/dL (11.5-16.0); IMMATURE GRAN ABSOLUTE AUTO 0.03 K/mm3 (0.00-0.10); IMMATURE GRAN PERCENT AUTO 0 % (0-1); LYMPHOCYTES ABSOLUTE AUTO 2.51 K/mm3 (0.84-5.20); LYMPHOCYTES PERCENT AUTO 30 % (21-46); MONOCYTES ABSOLUTE AUTO 0.65 K/mm3 (0.16-1.47); MONOCYTES PERCENT AUTO 8 % (4-13); Mean Corpuscular HGB 30.9 pg (26.0-34.0); Mean Corpuscular HGB Conc 33.6 g/dL (31.5-36.5); Mean Corpuscular Volume 92 fL (80-100); Mean Platelet Volume 10.1 fL (9.1-12.4); NEUTROPHILS ABSOLUTE AUTO 4.77 K/mm3 (1.96-9.15); NEUTROPHILS PERCENT AUTO 57 % (41-73); Platelet Count 326 K/mm3 (150-400); RDW Coefficient Variation 12.6 % (11.7-14.2); RDW Standard Deviation 42.8 fL (35.1-46.3); Red Blood Cell Count 4.63 M/mm3 (3.80-5.20); White Blood Cell Count 8.31 K/mm3 (4.00-11.30)
[2018-06-03 05:59] LABS: Bun/Creatinine Ratio 12.3 (12.0-20.0); Calcium, Blood 8.4 mg/dL (8.5-10.1); Creatinine, Blood 1.14 mg/dL (0.40-1.00); Potassium, Blood 3.1 mmol/L (3.5-5.5)
[2018-06-04 05:33] LABS: BASOPHILS ABSOLUTE AUTO 0.03 K/mm3 (0.00-0.23); BASOPHILS PERCENT AUTO 1 % (0-2); EOSINOPHILS ABSOLUTE AUTO 0.37 K/mm3 (0.00-0.68); EOSINOPHILS PERCENT AUTO 6 % (0-6); Hematocrit 40.3 % (33.0-51.0); Hemoglobin 13.7 g/dL (11.5-16.0); IMMATURE GRAN ABSOLUTE AUTO 0.02 K/mm3 (0.00-0.10); IMMATURE GRAN PERCENT AUTO 0 % (0-1); LYMPHOCYTES ABSOLUTE AUTO 2.38 K/mm3 (0.84-5.20); LYMPHOCYTES PERCENT AUTO 40 % (21-46); MONOCYTES PERCENT AUTO 8 % (4-13); Mean Corpuscular HGB 31.3 pg (26.0-34.0); Mean Corpuscular Volume 92 fL (80-100); Mean Platelet Volume 9.8 fL (9.1-12.4); NEUTROPHILS ABSOLUTE AUTO 2.63 K/mm3 (1.96-9.15); NEUTROPHILS PERCENT AUTO 45 % (41-73); Platelet Count 279 K/mm3 (150-400); RDW Coefficient Variation 12.8 % (11.7-14.2); RDW Standard Deviation 43.2 fL (35.1-46.3); Red Blood Cell Count 4.38 M/mm3 (3.80-5.20); White Blood Cell Count 5.93 K/mm3 (4.00-11.30)
[2018-06-04 05:55] LABS: Bun/Creatinine Ratio 11.8 (12.0-20.0); Calcium, Blood 8.1 mg/dL (8.5-10.1); Creatinine, Blood 1.1 mg/dL (0.40-1.00); Potassium, Blood 3.5 mmol/L (3.5-5.5)
[2018-06-05 05:35] LABS: BASOPHILS ABSOLUTE AUTO 0.04 K/mm3 (0.00-0.23); BASOPHILS PERCENT AUTO 1 % (0-2); EOSINOPHILS ABSOLUTE AUTO 0.37 K/mm3 (0.00-0.68); EOSINOPHILS PERCENT AUTO 5 % (0-6); Hematocrit 38.5 % (33.0-51.0); IMMATURE GRAN ABSOLUTE AUTO 0.01 K/mm3 (0.00-0.10); IMMATURE GRAN PERCENT AUTO 0 % (0-1); LYMPHOCYTES PERCENT AUTO 28 % (21-46); MONOCYTES ABSOLUTE AUTO 0.65 K/mm3 (0.16-1.47); MONOCYTES PERCENT AUTO 9 % (4-13); Mean Corpuscular HGB 31.2 pg (26.0-34.0); Mean Corpuscular HGB Conc 33.8 g/dL (31.5-36.5); Mean Corpuscular Volume 92 fL (80-100); Mean Platelet Volume 10.2 fL (9.1-12.4); NEUTROPHILS PERCENT AUTO 57 % (41-73); Platelet Count 283 K/mm3 (150-400); RDW Coefficient Variation 12.7 % (11.7-14.2); RDW Standard Deviation 43.1 fL (35.1-46.3); Red Blood Cell Count 4.17 M/mm3 (3.80-5.20); White Blood Cell Count 7.17 K/mm3 (4.00-11.30)
[2018-06-05 06:04] LABS: Bun/Creatinine Ratio 8.5 (12.0-20.0); Calcium, Blood 8.1 mg/dL (8.5-10.1); Creatinine, Blood 1.06 mg/dL (0.40-1.00); Potassium, Blood 3.5 mmol/L (3.5-5.5); Thyroid Stimulating Hormone 11.4 uIU/mL (0.360-4.800)
[2018-06-06 09:52] LABS: BASOPHILS ABSOLUTE AUTO 0.03 K/mm3 (0.00-0.23); BASOPHILS PERCENT AUTO 0 % (0-2); EOSINOPHILS ABSOLUTE AUTO 0.43 K/mm3 (0.00-0.68); EOSINOPHILS PERCENT AUTO 6 % (0-6); Hematocrit 40.7 % (33.0-51.0); Hemoglobin 13.3 g/dL (11.5-16.0); IMMATURE GRAN ABSOLUTE AUTO 0.02 K/mm3 (0.00-0.10); IMMATURE GRAN PERCENT AUTO 0 % (0-1); LYMPHOCYTES PERCENT AUTO 25 % (21-46); MONOCYTES PERCENT AUTO 10 % (4-13); Mean Corpuscular HGB 30.8 pg (26.0-34.0); Mean Corpuscular HGB Conc 32.7 g/dL (31.5-36.5); Mean Corpuscular Volume 94 fL (80-100); Mean Platelet Volume 10.1 fL (9.1-12.4); NEUTROPHILS ABSOLUTE AUTO 4.22 K/mm3 (1.96-9.15); NEUTROPHILS PERCENT AUTO 59 % (41-73); Platelet Count 280 K/mm3 (150-400); RDW Coefficient Variation 12.6 % (11.7-14.2); RDW Standard Deviation 43.9 fL (35.1-46.3); Red Blood Cell Count 4.32 M/mm3 (3.80-5.20)
[2018-06-06 10:19] LABS: Bun/Creatinine Ratio 7.1 (12.0-20.0); Calcium, Blood 8.2 mg/dL (8.5-10.1); Creatinine, Blood 1.13 mg/dL (0.40-1.00); Potassium, Blood 3.6 mmol/L (3.5-5.5)
[2018-06-07 05:51] LABS: Anion Gap 10 mmol/L (6-16); Blood Urea Nitrogen 8 mg/dL (8-24); Bun/Creatinine Ratio 8.1 (12.0-20.0); CO2, Blood 21 mmol/L (21-32); Calcium, Blood 8.2 mg/dL (8.5-10.1); Chloride, Blood 111 mmol/L (98-108); Creatinine, Blood 0.99 mg/dL (0.40-1.00); Glomerular Filtration Rate >60 (60-); Glucose, Blood 94 mg/dL (70-99); Potassium, Blood 3.2 mmol/L (3.5-5.5); Sodium, Blood 142 mmol/L (136-145)
[2018-06-07 09:27] LABS: Adenovirus F 40/41 Not Detected (NOT DETECT); Astrovirus Not Detected (NOT DETECT); Campylobacter Sp Not Detected (NOT DETECT); Cryptosporidium Not Detected (NOT DETECT); Cyclospora Cayetanensis Not Detected (NOT DETECT); E. Coli O157 Not Detected (NOT DETECT); Entamoeba Histolytica Not Detected (NOT DETECT); Enteroaggregative E. coli-EAEC Not Detected (NOT DETECT); Enteropathogenic E. coli-EPEC Not Detected (NOT DETECT); Enterotoxigenic E. coli-ETEC Not Detected (NOT DETECT); Giardia Lamblia Not Detected (NOT DETECT); Norovirus GI/GII Not Detected (NOT DETECT); Plesiomonas Shigelloides Not Detected (NOT DETECT); Rotavirus A Not Detected (NOT DETECT); Salmonella Sp Not Detected (NOT DETECT); Sapovirus Not Detected (NOT DETECT); Shiga Toxin-prod E. coli-STEC Not Detected (NOT DETECT); Shigella/Enteroin E. coli-EIEC Not Detected (NOT DETECT); Vibrio Cholerae Not Detected (NOT DETECT); Vibrio Sp Not Detected (NOT DETECT); Yersinia Enterocolitica Not Detected (NOT DETECT)
[2018-06-08 08:25] LABS: BASOPHILS ABSOLUTE AUTO 0.04 K/mm3 (0.00-0.23); BASOPHILS PERCENT AUTO 1 % (0-2); EOSINOPHILS ABSOLUTE AUTO 0.55 K/mm3 (0.00-0.68); EOSINOPHILS PERCENT AUTO 7 % (0-6); Hematocrit 42.7 % (33.0-51.0); IMMATURE GRAN ABSOLUTE AUTO 0.03 K/mm3 (0.00-0.10); IMMATURE GRAN PERCENT AUTO 0 % (0-1); LYMPHOCYTES ABSOLUTE AUTO 2.33 K/mm3 (0.84-5.20); LYMPHOCYTES PERCENT AUTO 30 % (21-46); MONOCYTES ABSOLUTE AUTO 0.89 K/mm3 (0.16-1.47); MONOCYTES PERCENT AUTO 12 % (4-13); Mean Corpuscular HGB Conc 32.8 g/dL (31.5-36.5); Mean Corpuscular Volume 95 fL (80-100); NEUTROPHILS ABSOLUTE AUTO 3.82 K/mm3 (1.96-9.15); NEUTROPHILS PERCENT AUTO 50 % (41-73); RDW Coefficient Variation 12.7 % (11.7-14.2); RDW Standard Deviation 43.7 fL (35.1-46.3); Red Blood Cell Count 4.51 M/mm3 (3.80-5.20); White Blood Cell Count 7.66 K/mm3 (4.00-11.30)
[2018-06-08 08:30] LABS: Mean Platelet Volume 10.3 fL (9.1-12.4); Platelet Count 220 K/mm3 (150-400)
[2018-06-08 08:46] LABS: Alanine Aminotransfer (ALT/SGP 25 U/L (12-78); Albumin, Blood 3.4 g/dL (3.4-5.0); Albumin/Globulin Ratio 1.1 (0.8-1.8); Alk Phos 70 U/L (50-136); Anion Gap 7 mmol/L (6-16); Aspartate Aminotrans (AST/SGOT 23 U/L (12-37); Bilirubin, Total 0.5 mg/dL (0.1-1.0); Blood Urea Nitrogen 5 mg/dL (8-24); Bun/Creatinine Ratio 5.4 (12.0-20.0); CO2, Blood 23 mmol/L (21-32); Calcium, Blood 8.4 mg/dL (8.5-10.1); Chloride, Blood 112 mmol/L (98-108); Creatinine, Blood 0.92 mg/dL (0.40-1.00); Globulin, Blood 3.2 g/dL (2.2-4.0); Glomerular Filtration Rate >60 (60-); Glucose, Blood 102 mg/dL (70-99); Potassium, Blood 3.3 mmol/L (3.5-5.5); Sodium, Blood 142 mmol/L (136-145); Total Protein, Blood 6.6 g/dL (6.4-8.2)
[2018-06-08] MEDS ORDERED: SACC250C PO (12:32)
[2018-06-08] MEDS ORDERED: SYNTHROID25 MCG PO (12:33)
[2018-06-08] MEDS ORDERED: ACET325 PO (12:37)
[2018-06-08] MEDS ORDERED: BUDESONIDE ER9 MG PO (12:38)
[2018-06-08] MEDS ORDERED: Oyster Shell C500 MG PO (12:40)
[2018-06-08] MEDS ORDERED: SULF500A PO (12:40)
[2018-06-08] MEDS ORDERED: VANC250 PO (12:41)
== END 2018-06-08 14:22 | disposition home or self-care (01) | DRG 373 ==
LOC: ER 12:04 → MEDS 17:01 → ENPENDDIS 06-08 11:47 → MEDS 06-08 14:22
PROVIDERS: Emergency Medicine; Family Medicine; Hospitalist; Internal Medicine
DX: A04.72 Enterocolitis due to Clostridium difficile, not specified as recurrent (principal); E87.6 Hypokalemia; I10 Essential (primary) hypertension; E03.9 Hypothyroidism, unspecified; F41.9 Anxiety disorder, unspecified; K27.9 Peptic ulcer, site unspecified, unspecified as acute or chronic, without hemorrhage or perforation; F17.210 Nicotine dependence, cigarettes, uncomplicated
CPT/HCPCS: 36415; 74177; 80048; 80053; 81001; 83690; 84443; 85025; 87086; 87507; 90686; 96365; 96375; 96376; 99285-25; C9113; J0744; J1200; J1650; J1885; J2405; J2550; J3010; J3480; J3490; J7050; Q9967

== ENCOUNTER 2018-07-02 17:18 | Inpatient (IN) | payer OTHER ==
[~2018-07-02] VITALS: Ht 167.6 cm; Wt 89.1 kg
[~2018-07-02 17:18] MED LIST changes: +ACET325 PO; +BUDESONIDE ER9 MG PO; +KETO10 PO; +LORA.5 PO; +Oyster Shell C500 MG PO; +ROXICODONE5 MG PO; -Roxicodone15 MG PO; +SACC250C PO; +SULF500A PO; +SYNTHROID25 MCG PO; +VANC250 PO
[2018-07-02 19:19] LABS: BASOPHILS ABSOLUTE AUTO 0.07 K/mm3 (0.00-0.23); BASOPHILS PERCENT AUTO 1 % (0-2); EOSINOPHILS ABSOLUTE AUTO 0.31 K/mm3 (0.00-0.68); EOSINOPHILS PERCENT AUTO 4 % (0-6); Hematocrit 44.2 % (33.0-51.0); Hemoglobin 15.2 g/dL (11.5-16.0); IMMATURE GRAN ABSOLUTE AUTO 0.01 K/mm3 (0.00-0.10); IMMATURE GRAN PERCENT AUTO 0 % (0-1); LYMPHOCYTES ABSOLUTE AUTO 3.07 K/mm3 (0.84-5.20); LYMPHOCYTES PERCENT AUTO 37 % (21-46); MONOCYTES ABSOLUTE AUTO 0.61 K/mm3 (0.16-1.47); MONOCYTES PERCENT AUTO 7 % (4-13); Mean Corpuscular HGB 31.1 pg (26.0-34.0); Mean Corpuscular HGB Conc 34.4 g/dL (31.5-36.5); Mean Corpuscular Volume 91 fL (80-100); Mean Platelet Volume 9.3 fL (9.1-12.4); NEUTROPHILS ABSOLUTE AUTO 4.21 K/mm3 (1.96-9.15); NEUTROPHILS PERCENT AUTO 51 % (41-73); Platelet Count 313 K/mm3 (150-400); RDW Coefficient Variation 12.4 % (11.7-14.2); RDW Standard Deviation 40.7 fL (35.1-46.3); Red Blood Cell Count 4.88 M/mm3 (3.80-5.20); White Blood Cell Count 8.28 K/mm3 (4.00-11.30)
[2018-07-02 19:47] LABS: Alanine Aminotransfer (ALT/SGP 16 U/L (12-78); Albumin, Blood 4.2 g/dL (3.4-5.0); Albumin/Globulin Ratio 1.2 (0.8-1.8); Alk Phos 66 U/L (50-136); Anion Gap 10 mmol/L (6-16); Aspartate Aminotrans (AST/SGOT 9 U/L (12-37); Bilirubin, Total 0.8 mg/dL (0.1-1.0); Blood Urea Nitrogen 11 mg/dL (8-24); Bun/Creatinine Ratio 10.7 (12.0-20.0); CO2, Blood 24 mmol/L (21-32); Calcium, Blood 9.7 mg/dL (8.5-10.1); Chloride, Blood 105 mmol/L (98-108); Creatinine, Blood 1.03 mg/dL (0.40-1.00); Globulin, Blood 3.4 g/dL (2.2-4.0); Glomerular Filtration Rate >60 (60-); Glucose, Blood 85 mg/dL (70-99); Potassium, Blood 3.9 mmol/L (3.5-5.5); Sodium, Blood 139 mmol/L (136-145); Total Protein, Blood 7.6 g/dL (6.4-8.2)
[2018-07-03 04:30] LABS: Source, Urine Clean Catch
[2018-07-03 04:32] LABS: Bilirubin, Urine Neg (Neg); Blood, Urine Neg (Neg); Glucose Qualitative, Urine Neg (Neg); Ketones, Urine 1+ (Neg); Leukocyte Esterase, Urine 3+ (Neg); Nitrite, Urine Neg (Neg); Protein, Urine Neg (Neg); Urobilinogen, Urine NORM (Normal)
[2018-07-03 04:41] LABS: Appearance, Urine Hazy (Clear); Bacteria Few /hpf; Color, Urine Pale Yellow (P-Yellow); Red Blood Cells, Urine Not Seen /hpf (0-2); Squamous Epithelial Cells Rare /hpf (Few); White Blood Cells, Urine 25-50 /hpf (0-5)
[2018-07-03 05:58] LABS: Hematocrit 41.2 % (33.0-51.0); Hemoglobin 13.9 g/dL (11.5-16.0); Mean Corpuscular HGB 30.8 pg (26.0-34.0); Mean Corpuscular HGB Conc 33.7 g/dL (31.5-36.5); Mean Corpuscular Volume 91 fL (80-100); Mean Platelet Volume 9.9 fL (9.1-12.4); Platelet Count 303 K/mm3 (150-400); RDW Coefficient Variation 12.4 % (11.7-14.2); RDW Standard Deviation 41.6 fL (35.1-46.3); Red Blood Cell Count 4.51 M/mm3 (3.80-5.20)
[2018-07-03 06:34] LABS: Alanine Aminotransfer (ALT/SGP 15 U/L (12-78); Albumin, Blood 3.5 g/dL (3.4-5.0); Albumin/Globulin Ratio 1.2 (0.8-1.8); Alk Phos 55 U/L (50-136); Anion Gap 13 mmol/L (6-16); Aspartate Aminotrans (AST/SGOT 8 U/L (12-37); Bilirubin, Total 1.2 mg/dL (0.1-1.0); Blood Urea Nitrogen 10 mg/dL (8-24); Bun/Creatinine Ratio 10.4 (12.0-20.0); CO2, Blood 19 mmol/L (21-32); Calcium, Blood 8.6 mg/dL (8.5-10.1); Chloride, Blood 111 mmol/L (98-108); Creatinine, Blood 0.96 mg/dL (0.40-1.00); Glomerular Filtration Rate >60 (60-); Glucose, Blood 85 mg/dL (70-99); Potassium, Blood 3.7 mmol/L (3.5-5.5); Sodium, Blood 143 mmol/L (136-145); Total Protein, Blood 6.5 g/dL (6.4-8.2)
[2018-07-03 11:45] LABS: Adenovirus F 40/41 Not Detected (NOT DETECT); Astrovirus Not Detected (NOT DETECT); Campylobacter Sp Not Detected (NOT DETECT); Cryptosporidium Not Detected (NOT DETECT); Cyclospora Cayetanensis Not Detected (NOT DETECT); E. Coli O157 Not Detected (NOT DETECT); Entamoeba Histolytica Not Detected (NOT DETECT); Enteroaggregative E. coli-EAEC Not Detected (NOT DETECT); Enteropathogenic E. coli-EPEC Not Detected (NOT DETECT); Enterotoxigenic E. coli-ETEC Not Detected (NOT DETECT); Giardia Lamblia Not Detected (NOT DETECT); Norovirus GI/GII Not Detected (NOT DETECT); Plesiomonas Shigelloides Not Detected (NOT DETECT); Rotavirus A Not Detected (NOT DETECT); Salmonella Sp Not Detected (NOT DETECT); Sapovirus Not Detected (NOT DETECT); Shiga Toxin-prod E. coli-STEC Not Detected (NOT DETECT); Shigella/Enteroin E. coli-EIEC Not Detected (NOT DETECT); Vibrio Cholerae Not Detected (NOT DETECT); Vibrio Sp Not Detected (NOT DETECT); Yersinia Enterocolitica Not Detected (NOT DETECT)
[2018-07-04 05:03] LABS: BASOPHILS ABSOLUTE AUTO 0.05 K/mm3 (0.00-0.23); BASOPHILS PERCENT AUTO 1 % (0-2); EOSINOPHILS ABSOLUTE AUTO 0.28 K/mm3 (0.00-0.68); EOSINOPHILS PERCENT AUTO 6 % (0-6); Hematocrit 40.6 % (33.0-51.0); Hemoglobin 13.4 g/dL (11.5-16.0); IMMATURE GRAN ABSOLUTE AUTO 0.01 K/mm3 (0.00-0.10); IMMATURE GRAN PERCENT AUTO 0 % (0-1); LYMPHOCYTES ABSOLUTE AUTO 2.06 K/mm3 (0.84-5.20); LYMPHOCYTES PERCENT AUTO 41 % (21-46); MONOCYTES ABSOLUTE AUTO 0.45 K/mm3 (0.16-1.47); MONOCYTES PERCENT AUTO 9 % (4-13); Mean Corpuscular HGB 30.2 pg (26.0-34.0); Mean Corpuscular Volume 92 fL (80-100); NEUTROPHILS ABSOLUTE AUTO 2.14 K/mm3 (1.96-9.15); NEUTROPHILS PERCENT AUTO 43 % (41-73); Platelet Count 274 K/mm3 (150-400); RDW Coefficient Variation 12.5 % (11.7-14.2); RDW Standard Deviation 42.1 fL (35.1-46.3); Red Blood Cell Count 4.43 M/mm3 (3.80-5.20); White Blood Cell Count 4.99 K/mm3 (4.00-11.30)
[2018-07-04 05:40] LABS: Albumin, Blood 3.5 g/dL (3.4-5.0); Albumin/Globulin Ratio 1.2 (0.8-1.8); Bilirubin, Total 0.9 mg/dL (0.1-1.0); Bun/Creatinine Ratio 8.6 (12.0-20.0); Calcium, Blood 8.5 mg/dL (8.5-10.1); Creatinine, Blood 1.05 mg/dL (0.40-1.00); Potassium, Blood 3.6 mmol/L (3.5-5.5); Total Protein, Blood 6.5 g/dL (6.4-8.2)
[2018-07-05 05:12] LABS: BASOPHILS ABSOLUTE AUTO 0.04 K/mm3 (0.00-0.23); BASOPHILS PERCENT AUTO 1 % (0-2); EOSINOPHILS ABSOLUTE AUTO 0.36 K/mm3 (0.00-0.68); EOSINOPHILS PERCENT AUTO 7 % (0-6); Hematocrit 38.2 % (33.0-51.0); Hemoglobin 12.7 g/dL (11.5-16.0); IMMATURE GRAN ABSOLUTE AUTO 0.01 K/mm3 (0.00-0.10); IMMATURE GRAN PERCENT AUTO 0 % (0-1); LYMPHOCYTES ABSOLUTE AUTO 2.31 K/mm3 (0.84-5.20); LYMPHOCYTES PERCENT AUTO 45 % (21-46); MONOCYTES ABSOLUTE AUTO 0.45 K/mm3 (0.16-1.47); MONOCYTES PERCENT AUTO 9 % (4-13); Mean Corpuscular HGB 30.7 pg (26.0-34.0); Mean Corpuscular HGB Conc 33.2 g/dL (31.5-36.5); Mean Corpuscular Volume 92 fL (80-100); NEUTROPHILS ABSOLUTE AUTO 1.92 K/mm3 (1.96-9.15); NEUTROPHILS PERCENT AUTO 38 % (41-73); Platelet Count 253 K/mm3 (150-400); RDW Coefficient Variation 12.4 % (11.7-14.2); RDW Standard Deviation 42.2 fL (35.1-46.3); Red Blood Cell Count 4.14 M/mm3 (3.80-5.20); White Blood Cell Count 5.09 K/mm3 (4.00-11.30)
[2018-07-05 05:32] LABS: Anion Gap 6 mmol/L (6-16); Blood Urea Nitrogen 7 mg/dL (8-24); Bun/Creatinine Ratio 7.2 (12.0-20.0); CO2, Blood 25 mmol/L (21-32); Calcium, Blood 7.9 mg/dL (8.5-10.1); Chloride, Blood 113 mmol/L (98-108); Creatinine, Blood 0.98 mg/dL (0.40-1.00); Glomerular Filtration Rate >60 (60-); Glucose, Blood 83 mg/dL (70-99); Potassium, Blood 3.7 mmol/L (3.5-5.5); Sodium, Blood 144 mmol/L (136-145)
[2018-07-05] MEDS ORDERED: ONDA4ODT PO (10:21)
[2018-07-05] MEDS ORDERED: SACC250C PO (10:22)
[2018-07-05] MEDS ORDERED: Promethazine12.5 M1 PO (10:22)
[2018-07-05] MEDS ORDERED: VANC125 PO (10:23)
== END 2018-07-05 12:45 | disposition home or self-care (01) | DRG 372 ==
LOC: ER 17:18 → MEDS 21:02
PROVIDERS: Family Medicine; Internal Medicine; Internal Medicine Gastroenterology; Physician Assistant
DX: A04.71 Enterocolitis due to Clostridium difficile, recurrent (principal); N39.0 Urinary tract infection, site not specified; F11.20 Opioid dependence, uncomplicated; E03.9 Hypothyroidism, unspecified; I10 Essential (primary) hypertension; E87.6 Hypokalemia; F41.8 Other specified anxiety disorders; G89.29 Other chronic pain; M54.5 Low back pain; E66.9 Obesity, unspecified; G43.909 Migraine, unspecified, not intractable, without status migrainosus; E78.5 Hyperlipidemia, unspecified; F17.210 Nicotine dependence, cigarettes, uncomplicated
CPT/HCPCS: 36415; 76705; 80048; 80053; 81001; 83605; 83690; 84145; 85025; 85027; 85651; 86141; 87086; 87507; 96361; 96365; 96367; 96375; 99285-25; C9113; J0360; J0696; J1200; J1630; J1650; J1885; J2060; J2405; J2550; J3010; J7030

== ENCOUNTER 2018-12-21 23:36 | Emergency (ER) | payer OTHER ==
[~2018-12-21] VITALS: Ht 167.6 cm; Wt 86.2 kg
[~2018-12-21 23:36] MED LIST changes: +CLON.5 PO; +ONDA4ODT PO; +Phenergan25 M1 PO; +Phenergan25 MG PR; +Promethazine12.5 M1 PO; +Roxicodone15 MG PO; +VANC125 PO
== END 2018-12-22 01:02 | disposition home or self-care (01) ==
LOC: ER 23:36
DX: G43.909 Migraine, unspecified, not intractable, without status migrainosus (principal); F41.9 Anxiety disorder, unspecified; I10 Essential (primary) hypertension; Z79.899 Other long term (current) drug therapy
CPT/HCPCS: 96361; 96374; 96375; 99283-25; J1200; J1885; J2405; J2550; J7030

== ENCOUNTER 2018-12-30 13:51 | Emergency (ER) | payer OTHER ==
[~2018-12-30] VITALS: Ht 167.6 cm; Wt 86.2 kg
== END 2018-12-30 15:25 | disposition home or self-care (01) ==
LOC: ER 13:51
DX: R51 Headache (principal); F41.9 Anxiety disorder, unspecified; I10 Essential (primary) hypertension; Z86.69 Personal history of other diseases of the nervous system and sense organs; Z88.2 Allergy status to sulfonamides; Z88.8 Allergy status to other drugs, medicaments and biological substances; Z87.891 Personal history of nicotine dependence
CPT/HCPCS: 36415; 96361; 96374; 96375; 99283-25; J1100; J1200; J1885; J2550; J7120

== ENCOUNTER 2018-12-31 00:03 | Emergency (ER) | payer OTHER ==
[~2018-12-31] VITALS: Ht 167.6 cm; Wt 86.2 kg
== END 2018-12-31 02:26 | disposition home or self-care (01) ==
LOC: ER 00:03
DX: G43.909 Migraine, unspecified, not intractable, without status migrainosus (principal); F41.9 Anxiety disorder, unspecified; I10 Essential (primary) hypertension; Z87.891 Personal history of nicotine dependence; Z79.899 Other long term (current) drug therapy
CPT/HCPCS: 36415; 96361; 96374; 96375; 99283-25; J1200; J1885; J2405; J2550; J7030

== ENCOUNTER 2019-01-13 17:51 | Emergency (ER) | payer OTHER ==
[~2019-01-13] VITALS: Ht 167.6 cm; Wt 86.2 kg
[~2019-01-13 17:51] MED LIST changes: +Percocet 5-3251 EACH PO
== END 2019-01-13 20:11 | disposition home or self-care (01) ==
LOC: ER 17:51
DX: G43.909 Migraine, unspecified, not intractable, without status migrainosus (principal); Z88.2 Allergy status to sulfonamides; Z88.8 Allergy status to other drugs, medicaments and biological substances; Z79.899 Other long term (current) drug therapy; F41.9 Anxiety disorder, unspecified; I10 Essential (primary) hypertension
CPT/HCPCS: 36415; 96374; 96375; 99283-25; J1200; J1885; J2550; J2930; J7030

== ENCOUNTER 2019-02-05 19:10 | Emergency (ER) | payer OTHER ==
[~2019-02-05] VITALS: Ht 167.6 cm; Wt 86.2 kg
[2019-02-06] MEDS ORDERED: PHENERGAN25 MG PR (09:29)
== END 2019-02-05 20:52 | disposition home or self-care (01) ==
LOC: ER 19:10
DX: G43.909 Migraine, unspecified, not intractable, without status migrainosus (principal); Z88.8 Allergy status to other drugs, medicaments and biological substances; Z88.2 Allergy status to sulfonamides; Z79.899 Other long term (current) drug therapy; F41.9 Anxiety disorder, unspecified; I10 Essential (primary) hypertension; Z87.891 Personal history of nicotine dependence
CPT/HCPCS: 36415; 96361; 96374; 96375; 99283-25; J1200; J1885; J2550; J7030

== ENCOUNTER 2019-02-06 07:50 | Emergency (ER) | payer OTHER ==
[~2019-02-06] VITALS: Ht 167.6 cm; Wt 86.2 kg
[2019-02-06] MEDS ORDERED: PHENERGAN25 MG PR (09:29)
== END 2019-02-06 09:45 | disposition home or self-care (01) ==
LOC: ER 07:50
DX: G43.909 Migraine, unspecified, not intractable, without status migrainosus (principal); F41.9 Anxiety disorder, unspecified; I10 Essential (primary) hypertension; M19.90 Unspecified osteoarthritis, unspecified site; Z88.2 Allergy status to sulfonamides; Z88.8 Allergy status to other drugs, medicaments and biological substances; Z79.899 Other long term (current) drug therapy
CPT/HCPCS: 96374; 96375; 99283-25; J1100; J1200; J1885; J2550; J7120

== ENCOUNTER 2019-02-10 07:15 | Emergency (ER) | payer OTHER ==
[~2019-02-10] VITALS: Ht 167.6 cm; Wt 54.0 kg
[~2019-02-10 07:15] MED LIST changes: +PHENERGAN25 MG PR
[2019-02-10] MEDS ORDERED: HYDPAM25 PO (07:42)
== END 2019-02-10 10:45 | disposition home or self-care (01) ==
LOC: ER 07:15
DX: R51 Headache (principal); R11.2 Nausea with vomiting, unspecified; F41.9 Anxiety disorder, unspecified; I10 Essential (primary) hypertension; Z88.2 Allergy status to sulfonamides; Z79.899 Other long term (current) drug therapy
CPT/HCPCS: 64405; 96361-59; 96374-59; 96375-59; 96376-59; 99283-25; J1200; J1885; J2060; J2405; J2550; J2765; J2930; J7030

== ENCOUNTER 2019-03-23 14:47 | Emergency (ER) | payer OTHER ==
[~2019-03-23] VITALS: Ht 167.6 cm; Wt 86.2 kg
[~2019-03-23 14:47] MED LIST changes: +HYDPAM25 PO
[2019-03-23 15:33] LABS: BASOPHILS ABSOLUTE AUTO 0.05 K/mm3 (0.00-0.23); BASOPHILS PERCENT AUTO 1 % (0-2); EOSINOPHILS ABSOLUTE AUTO 0.09 K/mm3 (0.00-0.68); EOSINOPHILS PERCENT AUTO 1 % (0-6); Hematocrit 50.3 % (33.0-51.0); IMMATURE GRAN ABSOLUTE AUTO 0.02 K/mm3 (0.00-0.10); IMMATURE GRAN PERCENT AUTO 0 % (0-1); LYMPHOCYTES ABSOLUTE AUTO 2.17 K/mm3 (0.84-5.20); LYMPHOCYTES PERCENT AUTO 21 % (21-46); MONOCYTES ABSOLUTE AUTO 0.54 K/mm3 (0.16-1.47); MONOCYTES PERCENT AUTO 5 % (4-13); Mean Corpuscular HGB 30.5 pg (26.0-34.0); Mean Corpuscular HGB Conc 33.8 g/dL (31.5-36.5); Mean Corpuscular Volume 90 fL (80-100); Mean Platelet Volume 9.9 fL (9.1-12.4); NEUTROPHILS PERCENT AUTO 73 % (41-73); Platelet Count 418 K/mm3 (150-400); RDW Coefficient Variation 12.6 % (11.7-14.2); RDW Standard Deviation 41.8 fL (35.1-46.3); Red Blood Cell Count 5.57 M/mm3 (3.80-5.20); White Blood Cell Count 10.57 K/mm3 (4.00-11.30)
[2019-03-23 15:49] LABS: Source, Urine Clean Catch
[2019-03-23 15:51] LABS: Bilirubin, Urine Neg (Neg); Blood, Urine Neg (Neg); Glucose Qualitative, Urine Neg (Neg); Ketones, Urine Neg (Neg); Leukocyte Esterase, Urine 2+ (Neg); Nitrite, Urine Neg (Neg); Protein, Urine 3+ (Neg); Urobilinogen, Urine NORM (Normal)
[2019-03-23 16:01] LABS: Albumin, Blood 4.6 g/dL (3.4-5.0); Albumin/Globulin Ratio 1.2 (0.8-1.8); Bilirubin, Total 1.5 mg/dL (0.1-1.0); Bun/Creatinine Ratio 13.3 (12.0-20.0); Calcium, Blood 9.9 mg/dL (8.5-10.1); Creatinine, Blood 1.2 mg/dL (0.40-1.00); Globulin, Blood 3.9 g/dL (2.2-4.0); Potassium, Blood 3.9 mmol/L (3.5-5.5); Total Protein, Blood 8.5 g/dL (6.4-8.2)
[2019-03-23 16:03] LABS: Appearance, Urine Clear (Clear); Color, Urine Yellow (P-Yellow)
[2019-03-23 16:04] LABS: Bacteria Few /hpf; Red Blood Cells, Urine 0-2 /hpf (0-2); Squamous Epithelial Cells Few /hpf (Few)
[2019-03-23] MEDS ORDERED: Augmentin 875-1 EACH PO (16:54)
[2019-03-23] MEDS ORDERED: Norco 5-325 Ta1 EACH PO (16:54)
[2019-03-23] MEDS ORDERED: Loperamide2 MG PO (16:54)
[2019-03-23] MEDS ORDERED: PROM25 PO (16:54)
[2019-03-23] MEDS ORDERED: Flagyl500 MG PO (16:54)
== END 2019-03-23 17:20 | disposition home or self-care (01) ==
LOC: ER 14:47
PROVIDERS: Physician Assistant
DX: K52.9 Noninfective gastroenteritis and colitis, unspecified (principal); Z88.8 Allergy status to other drugs, medicaments and biological substances; Z88.2 Allergy status to sulfonamides; Z79.899 Other long term (current) drug therapy; G43.909 Migraine, unspecified, not intractable, without status migrainosus; F41.9 Anxiety disorder, unspecified; I10 Essential (primary) hypertension
CPT/HCPCS: 36415; 74176; 80053; 81001; 81025; 83690; 85025; 87086; 96361; 96372-59; 96374; 96375; 99284-25; A9270-GY; J0500; J1885; J2405; J2550; J3010; J7030

== ENCOUNTER 2019-04-08 19:58 | Emergency (ER) | payer OTHER ==
[~2019-04-08] VITALS: Ht 165.1 cm; Wt 72.6 kg
[~2019-04-08 19:58] MED LIST changes: +Augmentin 875-1 EACH PO; +Flagyl500 MG PO; +Loperamide2 MG PO; +Norco 5-325 Ta1 EACH PO
[2019-04-08 21:01] LABS: BASOPHILS ABSOLUTE AUTO 0.03 K/mm3 (0.00-0.23); BASOPHILS PERCENT AUTO 0 % (0-2); EOSINOPHILS ABSOLUTE AUTO 0.32 K/mm3 (0.00-0.68); EOSINOPHILS PERCENT AUTO 4 % (0-6); Hematocrit 46.1 % (33.0-51.0); Hemoglobin 15.3 g/dL (11.5-16.0); IMMATURE GRAN ABSOLUTE AUTO 0.01 K/mm3 (0.00-0.10); IMMATURE GRAN PERCENT AUTO 0 % (0-1); LYMPHOCYTES ABSOLUTE AUTO 1.53 K/mm3 (0.84-5.20); LYMPHOCYTES PERCENT AUTO 20 % (21-46); MONOCYTES ABSOLUTE AUTO 0.65 K/mm3 (0.16-1.47); MONOCYTES PERCENT AUTO 8 % (4-13); Mean Corpuscular HGB 30.8 pg (26.0-34.0); Mean Corpuscular HGB Conc 33.2 g/dL (31.5-36.5); Mean Corpuscular Volume 93 fL (80-100); Mean Platelet Volume 9.7 fL (9.1-12.4); NEUTROPHILS ABSOLUTE AUTO 5.21 K/mm3 (1.96-9.15); NEUTROPHILS PERCENT AUTO 67 % (41-73); Platelet Count 300 K/mm3 (150-400); RDW Coefficient Variation 12.5 % (11.7-14.2); RDW Standard Deviation 42.6 fL (35.1-46.3); Red Blood Cell Count 4.96 M/mm3 (3.80-5.20); White Blood Cell Count 7.75 K/mm3 (4.00-11.30)
[2019-04-08 21:22] LABS: Alanine Aminotransfer (ALT/SGP 17 U/L (12-78); Albumin, Blood 3.6 g/dL (3.4-5.0); Alk Phos 82 U/L (50-136); Anion Gap 9 mmol/L (6-16); Aspartate Aminotrans (AST/SGOT 19 U/L (12-37); Bilirubin, Total 0.5 mg/dL (0.1-1.0); Blood Urea Nitrogen 18 mg/dL (8-24); Bun/Creatinine Ratio 20.4 (12.0-20.0); CO2, Blood 22 mmol/L (21-32); Calcium, Blood 9.1 mg/dL (8.5-10.1); Chloride, Blood 109 mmol/L (98-108); Creatinine, Blood 0.88 mg/dL (0.40-1.00); Globulin, Blood 3.7 g/dL (2.2-4.0); Glomerular Filtration Rate >60 (60-); Glucose, Blood 163 mg/dL (70-99); Sodium, Blood 140 mmol/L (136-145); Total Protein, Blood 7.3 g/dL (6.4-8.2)
[2019-04-08 21:41] LABS: Source, Urine Clean Catch
[2019-04-08 21:46] LABS: Bilirubin, Urine Neg (Neg); Blood, Urine 1+ (Neg); Glucose Qualitative, Urine Neg (Neg); Ketones, Urine 1+ (Neg); Leukocyte Esterase, Urine 2+ (Neg); Nitrite, Urine Neg (Neg); Protein, Urine 3+ (Neg); Urobilinogen, Urine NORM (Normal)
[2019-04-08 21:53] LABS: Appearance, Urine Clear (Clear); Color, Urine Yellow (P-Yellow)
[2019-04-08 21:55] LABS: Bacteria Few /hpf; Mucus Mod (0-Heavy); Squamous Epithelial Cells Not Seen /hpf (Few)
== END 2019-04-08 22:40 | disposition home or self-care (01) ==
LOC: ER 19:58
PROVIDERS: Physician Assistant
DX: R10.12 Left upper quadrant pain (principal); I10 Essential (primary) hypertension; E03.9 Hypothyroidism, unspecified; G43.909 Migraine, unspecified, not intractable, without status migrainosus; E78.5 Hyperlipidemia, unspecified; F32.9 Major depressive disorder, single episode, unspecified; F41.1 Generalized anxiety disorder; Z88.8 Allergy status to other drugs, medicaments and biological substances; Z88.2 Allergy status to sulfonamides; Z79.899 Other long term (current) drug therapy; Z87.891 Personal history of nicotine dependence
CPT/HCPCS: 36415; 80053; 81001; 83690; 84703; 85025; 87086; 96372-59; 96374; 99284-25; J0500; J2550; J7120

== ENCOUNTER 2019-04-10 20:18 | Emergency (ER) | payer OTHER ==
[~2019-04-10] VITALS: Ht 167.6 cm; Wt 86.2 kg
== END 2019-04-10 23:49 | disposition home or self-care (01) ==
LOC: ER 20:18
DX: G43.909 Migraine, unspecified, not intractable, without status migrainosus (principal); I10 Essential (primary) hypertension; F32.9 Major depressive disorder, single episode, unspecified; F41.1 Generalized anxiety disorder; E78.5 Hyperlipidemia, unspecified; E03.9 Hypothyroidism, unspecified; Z87.891 Personal history of nicotine dependence; Z79.899 Other long term (current) drug therapy
CPT/HCPCS: 96361; 96374; 96375; 96376; 99283-25; A9270-GY; J1200; J1885; J2060; J2405; J2550; J7030

== ENCOUNTER 2019-04-25 06:35 | Emergency (ER) | payer OTHER ==
[~2019-04-25] VITALS: Ht 167.6 cm; Wt 86.2 kg
== END 2019-04-25 09:08 | disposition home or self-care (01) ==
LOC: ER 06:35
DX: G43.909 Migraine, unspecified, not intractable, without status migrainosus (principal); E86.0 Dehydration; I10 Essential (primary) hypertension; F41.9 Anxiety disorder, unspecified; Z87.891 Personal history of nicotine dependence; Z88.2 Allergy status to sulfonamides; Z88.5 Allergy status to narcotic agent; Z88.8 Allergy status to other drugs, medicaments and biological substances; Z79.899 Other long term (current) drug therapy; Z79.891 Long term (current) use of opiate analgesic
CPT/HCPCS: 36415; 96361; 96374; 96375; 99283-25; J1200; J1885; J2550; J7030

== ENCOUNTER 2019-08-09 05:34 | Emergency (ER) | payer OTHER ==
[~2019-08-09] VITALS: Ht 167.6 cm; Wt 86.2 kg
[2019-08-09] MEDS ORDERED: ONDA4ODT SL (07:01)
== END 2019-08-09 07:19 | disposition home or self-care (01) ==
LOC: ER 05:34
DX: R51 Headache (principal); I10 Essential (primary) hypertension; E78.5 Hyperlipidemia, unspecified; E03.9 Hypothyroidism, unspecified; F32.9 Major depressive disorder, single episode, unspecified; F41.0 Panic disorder [episodic paroxysmal anxiety]; F43.10 Post-traumatic stress disorder, unspecified; F17.200 Nicotine dependence, unspecified, uncomplicated; Z88.8 Allergy status to other drugs, medicaments and biological substances; Z88.2 Allergy status to sulfonamides; Z79.899 Other long term (current) drug therapy; Z79.84 Long term (current) use of oral hypoglycemic drugs
CPT/HCPCS: 96361; 96374; 96375; 99283-25; J1200; J1885; J2550; J7120

== ENCOUNTER 2019-10-14 00:49 | Emergency (ER) | payer MEDICARE, OTHER ==
[~2019-10-14] VITALS: Ht 167.6 cm; Wt 95.2 kg
[2019-10-14] MEDS ORDERED: METO25ER (00:57)
== END 2019-10-14 02:36 | disposition left against medical advice (07) ==
LOC: ER 00:49
DX: Z53.21 Procedure and treatment not carried out due to patient leaving prior to being seen by health care provider (principal)
CPT/HCPCS: J1200; J1630; J1885

== ENCOUNTER 2020-06-19 09:45 | Emergency (ER) | payer OTHER ==
[~2020-06-19] VITALS: Ht 167.6 cm; Wt 91.6 kg
[~2020-06-19 09:45] MED LIST changes: +METO25ER
== END 2020-06-19 13:00 | disposition home or self-care (01) ==
LOC: ER 09:45
DX: G43.909 Migraine, unspecified, not intractable, without status migrainosus (principal); F32.9 Major depressive disorder, single episode, unspecified; E03.9 Hypothyroidism, unspecified
CPT/HCPCS: 96374; 96375; 99283-25; J1200; J1885; J2060; J2550; J7030

== ENCOUNTER 2020-09-10 12:43 | Emergency (ER) | payer OTHER ==
[~2020-09-10] VITALS: Ht 167.6 cm; Wt 81.7 kg
[~2020-09-10 12:43] MED LIST changes: -HYDPAM25 PO; -METO25ER; -Roxicodone15 MG PO
== END 2020-09-10 18:15 | disposition home or self-care (01) ==
LOC: ER 12:43
DX: G43.909 Migraine, unspecified, not intractable, without status migrainosus (principal); F41.0 Panic disorder [episodic paroxysmal anxiety]; F41.9 Anxiety disorder, unspecified; I10 Essential (primary) hypertension; Z88.2 Allergy status to sulfonamides; Z88.8 Allergy status to other drugs, medicaments and biological substances; Z79.899 Other long term (current) drug therapy; Z87.891 Personal history of nicotine dependence
CPT/HCPCS: 36415; 96374; 96375; 99283-25; A9270; J1200; J1885; J2060; J2550; J7030

== ENCOUNTER 2020-10-09 18:50 | Emergency (ER) | payer OTHER ==
[~2020-10-09] VITALS: Ht 167.6 cm; Wt 92.1 kg
[2020-10-10] MEDS ORDERED: OXYC10TA19 PO (13:35)
[2020-10-10] MEDS ORDERED: Phenergan25 M1 PO (13:36)
[2020-10-10] MEDS ORDERED: IBUP600 PO (13:36)
[2020-10-10] MEDS ORDERED: KETOROLAC30 MG/1 ML IM (13:37)
[2020-10-10] MEDS ORDERED: REYVOW PO (13:53)
[2020-10-10] MEDS ORDERED: CYCLOBENZAPRINE5 MG PO (13:54)
[2020-10-10] MEDS ORDERED: METO25 PO (15:45)
[2020-10-10] MEDS ORDERED: HYDHCL25 PO (15:52)
== END 2020-10-09 22:12 | disposition home or self-care (01) ==
LOC: ER 18:50
DX: F41.0 Panic disorder [episodic paroxysmal anxiety] (principal); R51.9 Headache, unspecified; E03.9 Hypothyroidism, unspecified; I10 Essential (primary) hypertension; Z79.899 Other long term (current) drug therapy; Z88.8 Allergy status to other drugs, medicaments and biological substances; Z88.2 Allergy status to sulfonamides; Z87.891 Personal history of nicotine dependence
CPT/HCPCS: 96372-59; 99284-25; J1100; J1200; J2550

== ENCOUNTER 2020-10-10 08:13 | Inpatient (IN) | payer OTHER ==
[~2020-10-10] VITALS: Ht 167.6 cm; Wt 86.8 kg
[2020-10-10 13:19] LABS: BASOPHILS ABSOLUTE AUTO 0.04 K/mm3 (0.00-0.23); BASOPHILS PERCENT AUTO 0 % (0-2); EOSINOPHILS ABSOLUTE AUTO 0.01 K/mm3 (0.00-0.68); EOSINOPHILS PERCENT AUTO 0 % (0-6); Hemoglobin 15.2 g/dL (11.5-16.0); IMMATURE GRAN ABSOLUTE AUTO 0.03 K/mm3 (0.00-0.10); IMMATURE GRAN PERCENT AUTO 0 % (0-1); LYMPHOCYTES ABSOLUTE AUTO 2.29 K/mm3 (0.84-5.20); LYMPHOCYTES PERCENT AUTO 19 % (21-46); MONOCYTES ABSOLUTE AUTO 0.78 K/mm3 (0.16-1.47); MONOCYTES PERCENT AUTO 6 % (4-13); Mean Corpuscular HGB 29.9 pg (26.0-34.0); Mean Corpuscular HGB Conc 34.5 g/dL (31.5-36.5); Mean Corpuscular Volume 86 fL (80-100); Mean Platelet Volume 9.6 fL (9.1-12.4); NEUTROPHILS PERCENT AUTO 74 % (41-73); Platelet Count 402 K/mm3 (150-400); RDW Coefficient Variation 13.2 % (11.7-14.2); RDW Standard Deviation 41.1 fL (35.1-46.3); Red Blood Cell Count 5.09 M/mm3 (3.80-5.20); White Blood Cell Count 12.25 K/mm3 (4.00-11.30)
[2020-10-10] MEDS ORDERED: OXYC10TA19 PO (13:35)
[2020-10-10] MEDS ORDERED: IBUP600 PO (13:36)
[2020-10-10] MEDS ORDERED: Phenergan25 M1 PO (13:36)
[2020-10-10] MEDS ORDERED: KETOROLAC30 MG/1 ML IM (13:37)
[2020-10-10] MEDS ORDERED: REYVOW PO (13:53)
[2020-10-10] MEDS ORDERED: CYCLOBENZAPRINE5 MG PO (13:54)
[2020-10-10 13:56] LABS: Alanine Aminotransfer (ALT/SGP 15 U/L (12-78); Albumin, Blood 3.8 g/dL (3.4-5.0); Alk Phos 74 U/L (50-136); Anion Gap 8 mmol/L (6-16); Aspartate Aminotrans (AST/SGOT 11 U/L (12-37); Bilirubin, Total 0.9 mg/dL (0.1-1.0); Blood Urea Nitrogen 16 mg/dL (8-24); Bun/Creatinine Ratio 15.2 (12.0-20.0); CO2, Blood 23 mmol/L (21-32); Calcium, Blood 9.5 mg/dL (8.5-10.1); Chloride, Blood 112 mmol/L (98-108); Creatinine, Blood 1.05 mg/dL (0.40-1.00); Globulin, Blood 3.8 g/dL (2.2-4.0); Glomerular Filtration Rate 59 (60-); Glucose, Blood 90 mg/dL (70-99); Potassium, Blood 3.5 mmol/L (3.5-5.5); Sodium, Blood 143 mmol/L (136-145); Total Protein, Blood 7.6 g/dL (6.4-8.2); Troponin I <0.015 ng/mL (0.000-0.040)
[2020-10-10] MEDS ORDERED: METO25 PO (15:45)
[2020-10-10] MEDS ORDERED: HYDHCL25 PO (15:52)
--- NOTE | 2020-10-10 20:30 | NUR ---
PT ARRIVES TO ICU VIA GURNEY FROM ER FOR HYPERTENSIVE EMERGENCY, PRESSURES ARE NOTED IMPROVED TO 150-160S SYSTOLIC AT THIS TIME, PT STATES THAT THIS HAS NOT IMPROVED HER HEADACHE AT ALL. SHE DOES STILL FEEL SHORT OF BREATH HOWEVER STATES THAT THIS IS SECONDARY TO HER ANXIETY WHICH SHE HAS A HISTORY OF. SHE ADMITS TO NAUSEA SECONDARY TO HEADACHE PAIN WHICH SHE RATES AT 10/10 EXACERBATED BY LIGHTS AND SOUNDS. SHE IS AGREEABLE TO ATTEMPTING PO MEDS FOR PAIN CONTROL AND EXPRESSES CONCERN REGARDING VOMITING MEDICATIONS UP. SHE DOES STATE THAT NAUSEA IS SECONDARY TO PAIN AND THAT IF PAIN CONTROL CAN BE ACHIEVED THAT THE NAUSEA WOULD IMPROVE. PLAN TO ADMINISTER PO MEDS AND MONITOR FOR VOMITING AT THIS TIME. PLAN TO ADMINISTER TORADOL WHEN AVAILABLE. WILL DISCUSS FURTHER PAIN CONTROL WITH HOSPITALIST LEAD NUCLEAR MEDICINE TECHNOLOGIST. WILL MONTOR BLOOD PRESSURE, NICARDIPINE GTT REMAINS ON HOLD PER ORDERED PARAMETERS AT THIS TIME.
--- NOTE | 2020-10-10 21:50 | NUR ---
HOSPITALIST MARY IN UNIT AT THIS TIME, DISCUSSED ADMINISTERED MEDICATIONS WELL PAIN SCORE AND VITAL SIGNS AT THIS TIME. NEW ORDERS NOTED. EXPLAINED NEW ORDERS TO PT, SHE STATES THAT SHE HAS TRIED IMITREX IN THE PAST "NONE OF THE TRIPTANS WORK FOR ME" SHE DECLINES AT THIS TIME AND STATES TO SAVE IT FOR SOMEONE THAT IT MIGHT HELP. SHE IS AGREEABLE TO DILAUDID IF TORADOL DOES NOT ALLOW HER TO SLEEP. SHE STATES THAT AT THIS POINT IN HER MIGRAINES, HISTORICALLY, THAT THE ONLY THING THAT WILL WORK FOR PAIN CONTROL IS SLEEP.
--- NOTE | 2020-10-10 22:05 | NUR ---
ARRIVED TO ROOM FOR POST TORADOL PAIN SCORE ASSESSMENT. PT IS NOTED TO HAVE EYES CLOSED, LYING ON LEFT SIDE IN BED, SOFTLY SNORING, NO FACIAL GRIMACING IS NOTED AT THIS TIME. PT DOES NOT OPEN EYES TO SOFTLY SPOKEN NAME. WILL CONT TO MONITOR. PLAN TO MINIMIZE INTERUPTIONS IN PT SLEEP.
[2020-10-10 23:39] LABS: Source, Urine Clean Catch
[2020-10-10 23:56] LABS: Appearance, Urine Clear (Clear); Bilirubin, Urine Neg (Neg); Blood, Urine 2+ (Neg); Color, Urine Amber (P-Yellow); Glucose Qualitative, Urine Neg (Neg); Ketones, Urine 1+ (Neg); Leukocyte Esterase, Urine 1+ (Neg); Nitrite, Urine Neg (Neg); Protein, Urine 4+ (Neg); Specific Gravity, Urine 1.025 (1.003-1.022); Urobilinogen, Urine NORM (Normal)
[2020-10-11 00:06] LABS: Bacteria Mod /hpf; Mucus Mod (0-Heavy); Squamous Epithelial Cells Few /hpf (Few)
[2020-10-11 00:08] LABS: U Amphetamine Screen Not Detected; U Barbituate Screen Not Detected; U Benzodiazapine Screen DETECTED; U Buprenorphine Screen Not Detected; U Cannabinoids Screen Not Detected; U Cocaine Screen Not Detected; U Methadone Screen Not Detected; U Methamphetamine Screen Not Detected; U Opiates Screen Not Detected; U Oxycodone Screen DETECTED; U Phencyclidine Screen Not Detected; U Propoxyphene Screen Not Detected
[2020-10-11 01:39] LABS: BASOPHILS ABSOLUTE AUTO 0.06 K/mm3 (0.00-0.23); BASOPHILS PERCENT AUTO 1 % (0-2); EOSINOPHILS ABSOLUTE AUTO 0.09 K/mm3 (0.00-0.68); EOSINOPHILS PERCENT AUTO 1 % (0-6); Hematocrit 40.2 % (33.0-51.0); Hemoglobin 13.5 g/dL (11.5-16.0); IMMATURE GRAN ABSOLUTE AUTO 0.02 K/mm3 (0.00-0.10); IMMATURE GRAN PERCENT AUTO 0 % (0-1); LYMPHOCYTES ABSOLUTE AUTO 2.98 K/mm3 (0.84-5.20); LYMPHOCYTES PERCENT AUTO 28 % (21-46); MONOCYTES ABSOLUTE AUTO 0.79 K/mm3 (0.16-1.47); MONOCYTES PERCENT AUTO 7 % (4-13); Mean Corpuscular HGB Conc 33.6 g/dL (31.5-36.5); Mean Corpuscular Volume 89 fL (80-100); Mean Platelet Volume 9.5 fL (9.1-12.4); NEUTROPHILS ABSOLUTE AUTO 6.77 K/mm3 (1.96-9.15); NEUTROPHILS PERCENT AUTO 63 % (41-73); Platelet Count 354 K/mm3 (150-400); RDW Coefficient Variation 13.5 % (11.7-14.2); RDW Standard Deviation 44.2 fL (35.1-46.3); White Blood Cell Count 10.71 K/mm3 (4.00-11.30)
[2020-10-11 01:57] LABS: Albumin, Blood 3.4 g/dL (3.4-5.0); Albumin/Globulin Ratio 1.1 (0.8-1.8); Bun/Creatinine Ratio 18.9 (12.0-20.0); Calcium, Blood 8.9 mg/dL (8.5-10.1); Creatinine, Blood 1.22 mg/dL (0.40-1.00); Globulin, Blood 3.1 g/dL (2.2-4.0); Magnesium, Blood 2.7 mg/dL (1.6-2.4); Potassium, Blood 3.8 mmol/L (3.5-5.5); Total Protein, Blood 6.5 g/dL (6.4-8.2)
--- NOTE | 2020-10-11 04:35 | NUR ---
PT C/O INCREASED PAIN, TEARFUL AT THIS TIME, SHE STATES THAT NAUSEA IS VERY HIGH AT THIS TIME WELL "I CAN'T THROW UP, IT MAKES IT HURT SO MUCH WORSE" STATES THAT HER HEAD "FEELS LIKE IT'S GOING TO EXPLODE" AND "IT'S BEEN 5 DAYS NOW OF THROWING UP" STATES THAT ONSET OF MIGRAINE STARTED WITH PRE PROCEDURAL COVID CLEARANCE SWAB.
--- NOTE | 2020-10-11 07:07 | NUR ---
PT AWAKE FREQUENTLY THIS SHIFT CONT TO C/O HIGH PAIN WHEN AWAKE, BEST PAIN SCORE HAS BEEN 6/10 HOWEVER PAIN IS USUALLY 9-10/10, DESCRIBED A THROBBING ACHE THAT IS OCCIPITAL AND COMES FORWARD TO HER RIGHT EYE. SHE CONTINUES TO HAVE NAUSEA THAT SHE BELIEVES IS RELATED TO THE HIGH PAIN LEVEL. PAIN LEVEL IS NOTED TO CORRELATE WITH BLOOD PRESSURE, 6/10 PAIN SCORE WAS NOTED TO HAVE SBP IN THE 130S AND ALL HIGHER PAIN SCORES HAVE BEEN 140S AND HIGHER HOWEVER PRESSURES HAVE REMAINED LESS THAN 190 SO NICARDIPINE GTT HAS NOT BEEN STARTED INFUSING. PAIN MEDICATIONS ATTEMPTED HAVE BEEN TORADOL 15 MG IV X 2, FENTANYL 50 MCG IV X 1, DILUADID 1 MG IV X 2, OXYCODONE 10 MG PO X 2, FLEXERIL 5 MG PO X 1, OF THIS AM PT IS VERY TEARFUL AND C/O HIGH NAUSEA AND DOES NOT WANT TO SWALLOW ANYTHING, SHE STATES THAT VOMITING MAKES HER PAIN MARKEDLY INCREASE.
--- NOTE | 2020-10-11 08:34 | NUR ---
ASSUMED CARE RECEIVED REPORT FROM ARTUR ESCALONA. PT IS LYING IN BED, AWAKE, TRYING TO SLEEP, TEARFULL, IN SEVERE PAIN FROM HER MIGRAINE, AND REPORTING NAUSEA, AND ANXIETY. SHE IS ORIENTED X 4. PERIPHERAL IV IS SALINE LOCKED, ON HER LEFT BREAST - FLUSHES WELL. PT REFUSING MORNING MEDICATIONS D/T NAUSEA/WRETCHING - AND HOW IT INCREASES HER PAIN WHEN SHE WRETCHES. SINUS RHYTHM, STABLE BP, SBP 160-170s. AFEBRILE. PHOTOSENSITIVE AND SENSITIVE TO SOUNDS. BED LOW AND LOCKED. CALL LIGHT WITHIN REACH.
--- NOTE | 2020-10-11 12:57 | NUR ---
UPDATE PT CONTINUES TO STRUGGLE WITH HER MIGRAINE, STATES IT IS THROBBING - STARTING IN HER OCCIPTAL REIGON AND RADIATING ALONG THE SIDES TO THE FRONT. "FEELS LIKE A AD HAMMER ON THE BACK OF HER HEAD". HAS BEEN 10/10 PAIN SCALES - MANAGED BY IV DILAUDID AND TORADOL. SHE HAS ALSO BEEN STRUGGLING WITH NAUSEA AND WRETCHING - WHICH SHE STATES EXACERBATES HER PAIN. SHE CAN ONLY HAVE SMALL SIPS OF WATER WITHOUT WRETCHING. SHE WAS UNABLE TO TAKE HER METOPROLOL, AND SYNTHROID. ATIVAN HAS BEEN HELPING WITH HER ANXIETY, AND ALSO HER NAUSEA. DILAUDID BEING GIVEN Q2H (BUT ONLY ONE MORE DOSE IS LEFT), ATIVAN GIVEN Q4H, AND TORADOL GIVEN Q6H. FAIRLY REGULARLY. PT IS OPEN TO TAKING PO MEDS WITH HER NEXT DOSE OF ATIVAN, WILL TRY TO GIVE METOPROLOL AND ATARAX (HER HOME ANXIETY MEDS) - ALONG WITH SOME ORAL PO PAIN MEDICINE. PT WOULD LIKE TO GO HOME IF THE PO PAIN MEDICATION HELPS. BED LOW AND LOCKED. CALL LIGHT WITHIN REACH. PT INDEPENDENT IN ROOM.
--- NOTE | 2020-10-11 14:33 | NUR ---
UPDATE PT HAD STOOD UP, PUT ON SWEATSHIRT, AND WAS WALKING OUT OF ROOM - WHEN ASKED WHY SHE WAS LEAVING - SHE TOLD ME, "I NEED TO GO SMOKE A CIGARETTE, I'LL BE RIGHT BACK". AFTER INFORMING HER THAT [facility] WAS A NON-SMOKING CAMPUS - SHE TURNED AROUND IN WENT INSIDE TO HER ROOM. A FEW MINUTES LATER, THE PT STARTED CRYING (SOBBING), AND MOANING/GROANING. SHE WAS C/O CHEST PAIN, MAJOR ANXIETY, AND THAT SHE WAS "FEELING LIKE RUNNING AWAY". I GAVE HER SOME ATARAX, AND HCTZ (PER MD ORDER, AND ATARAX IS A MED SHE TAKES FOR ANXIETY AT HOME). SHE WOULDN'T SIT STILL FOR A 12 LEAD EKG (ORDERED EVEN BEFORE THE CHEST PAIN). HER CHEST PAIN WAS SHORT LIVED, BUT SHE STATED THAT SHE WAS HAVING A PANIC ATTACK AND THAT SHE USUALLY TOOK HER ATARAX, AND SMOKED A CIGARETTE AND SHE WOULD BE USUALLY BE FINE. I THEN GAVE DR. WISE A CALL, THE ATIVAN FOR ANXIETY WAS NOT DUE TILL 1600, AND SHE CAME TO ICU TO TALK TO HER TO FIGURE OUT WHAT TO DO. WILL CONTINUE TO MONITOR.
[2020-10-11] MEDS ORDERED: HYDCHL25 PO (15:01)
--- NOTE | 2020-10-11 15:13 | NUR ---
UPDATE DR. WISE HAD PUT DISCHARGE ORDERS IN FOR THE PT, SO SHE COULD DEAL WITH HER ANXIETY BACK HOME. I ATTEMPTED TO CALL HER DAD FOR HER, SO HE COULD PICK HER UP, BUT SHE REFUSED. WHEN ASKED IF SHE HAD SOMEONE TO PICK HER UP, SHE SAID YES, BUT LATER SHE TOLD ME SHE WAS GOING TO TAKE HER CAR. I ATTEMPTED TO EDUCATE HER ABOUT THE DANGERS OF DRIVING IN THIS CONDITION (ANXIOUS, PT RECEIVING MULTIPLE SEDATING MEDICATIONS T/O THE DAY). SHE STATED THAT SHE WOULD WAIT TO DRIVE UNTIL SHE IS CALMED DOWN, AND THAT SHE REALLY JUST NEEDED A CIGARETTE. PT DISCHARGED, AND LEFT ICU AT 1510 - REFUSING WHEELCHAIR
== END 2020-10-11 15:10 | disposition home or self-care (01) | DRG 305 ==
LOC: ER 08:13 → ICUE 15:20 → ERHOLD 15:20 → ICUE 20:27
PROVIDERS: Emergency Medicine; Nurse Practitioner Acute Care; ADMIT Internal Medicine
DX: I16.1 Hypertensive emergency (principal); F11.20 Opioid dependence, uncomplicated; F17.210 Nicotine dependence, cigarettes, uncomplicated; G43.919 Migraine, unspecified, intractable, without status migrainosus; M50.30 Other cervical disc degeneration, unspecified cervical region; F32.9 Major depressive disorder, single episode, unspecified; E03.9 Hypothyroidism, unspecified; F31.9 Bipolar disorder, unspecified; F41.1 Generalized anxiety disorder; R94.31 Abnormal electrocardiogram [ECG] [EKG]; D72.829 Elevated white blood cell count, unspecified; I10 Essential (primary) hypertension; Z88.2 Allergy status to sulfonamides; Z88.8 Allergy status to other drugs, medicaments and biological substances; Z79.899 Other long term (current) drug therapy
CPT/HCPCS: 36415; 70450; 71045; 80053; 81001; 83735; 84484; 85025; 87086; 93005; 93010; 96365; 96366; 96372-59; 96375; 96376; 99285-25; A9270; J0360; J1170; J1200; J1885; J2060; J2550; J3010; J3475; J3480; J7030; J7050

== ENCOUNTER 2020-11-03 11:56 | Day surgery (SDC) | payer OTHER ==
[~2020-11-03] VITALS: Ht 167.6 cm; Wt 88.4 kg
[~2020-11-03 11:56] MED LIST changes: +CYCLOBENZAPRINE5 MG PO; +HYDCHL25 PO; +HYDHCL25 PO; +IBUP600 PO; +KETOROLAC30 MG/1 ML IM; +METO25 PO; +REYVOW PO
--- NOTE | 2020-11-03 12:31 | NUR ---
11/03/20 1231 True,Jacky ONE ATTEMPT IN RW BY ABBY MISSED ONE SUCCESSFUL IN RFA BY ABBY PT TOW
--- NOTE | 2020-11-03 14:57 | NUR ---
11/03/20 3803 Celine Aguilera PT. CAME IN WITH A TEMPLE IN PREOP, TEMPLE CONTINUES RATING A "10". PT. VERBALIZES HAVING MIGRANES AT HOME & TAKES MEDICATIONS FOR THIS. PT. INSTRUCTED SHE COULD RESUME HER MEDICATIONS AT HOME. ALSO INSTRUCTED IT COULD BE ALSO FROM NOT EATING & DRINKING.
== END 2020-11-03 14:25 | disposition home or self-care (01) ==
LOC: ORSCSDS 11:56
PROVIDERS: Internal Medicine Gastroenterology
PROC: 0DB78ZX Excision of Stomach, Pylorus, Via Natural or Artificial Opening Endoscopic, Diagnostic (ICD-10-PCS; principal; 2020-11-03 13:30)
PROC: 0DBE8ZX Excision of Large Intestine, Via Natural or Artificial Opening Endoscopic, Diagnostic (ICD-10-PCS; principal; 2020-11-03 13:30)
PROC: 0DBP8ZX Excision of Rectum, Via Natural or Artificial Opening Endoscopic, Diagnostic (ICD-10-PCS; principal; 2020-11-03 13:30)
PROC: 0DB98ZX Excision of Duodenum, Via Natural or Artificial Opening Endoscopic, Diagnostic (ICD-10-PCS; principal; 2020-11-03 13:30)
DX: R11.2 Nausea with vomiting, unspecified (principal); R19.4 Change in bowel habit; Z86.010 Personal history of colon polyps; K20.80 Other esophagitis without bleeding; K29.70 Gastritis, unspecified, without bleeding; K63.89 Other specified diseases of intestine; K64.1 Second degree hemorrhoids; R14.0 Abdominal distension (gaseous); K44.9 Diaphragmatic hernia without obstruction or gangrene; I10 Essential (primary) hypertension; E78.5 Hyperlipidemia, unspecified; E88.81 Metabolic syndrome and other insulin resistance; E03.9 Hypothyroidism, unspecified; F17.210 Nicotine dependence, cigarettes, uncomplicated; Z79.899 Other long term (current) drug therapy
CPT/HCPCS: 88305; 88342; J2250; J2704; J7120

== ENCOUNTER 2020-11-05 08:49 | Emergency (ER) | payer OTHER ==
[~2020-11-05] VITALS: Ht 167.6 cm; Wt 88.5 kg
[2020-11-05] MEDS ORDERED: ABILIFY5 MG PO (09:00)
== END 2020-11-05 13:45 | disposition home or self-care (01) ==
LOC: ER 08:49
DX: G43.909 Migraine, unspecified, not intractable, without status migrainosus (principal); I10 Essential (primary) hypertension; F17.200 Nicotine dependence, unspecified, uncomplicated; E03.9 Hypothyroidism, unspecified
CPT/HCPCS: 96374; 96375; 96376; 99283-25; J0360; J1200; J1885; J2405; J2550; J7120

== ENCOUNTER 2020-11-25 09:37 | Emergency (ER) | payer OTHER ==
[~2020-11-25] VITALS: Ht 167.6 cm; Wt 90.7 kg
[~2020-11-25 09:37] MED LIST changes: +ABILIFY5 MG PO
[2020-11-25 11:28] LABS: Anion Gap 5 mmol/L (6-16); Blood Urea Nitrogen 15 mg/dL (8-24); Bun/Creatinine Ratio 14.6 (12.0-20.0); CO2, Blood 27 mmol/L (21-32); Calcium, Blood 9.5 mg/dL (8.5-10.1); Chloride, Blood 108 mmol/L (98-108); Creatinine, Blood 1.03 mg/dL (0.40-1.00); Glomerular Filtration Rate >60 (60-); Glucose, Blood 90 mg/dL (70-99); Magnesium, Blood 2.2 mg/dL (1.6-2.4); Potassium, Blood 4.3 mmol/L (3.5-5.5); Sodium, Blood 140 mmol/L (136-145)
== END 2020-11-25 14:02 ==
LOC: ER 09:37
PROVIDERS: Emergency Medicine
DX: R51.9 Headache, unspecified (principal); R11.2 Nausea with vomiting, unspecified; I10 Essential (primary) hypertension; E03.9 Hypothyroidism, unspecified; Z88.2 Allergy status to sulfonamides; Z88.8 Allergy status to other drugs, medicaments and biological substances; Z79.899 Other long term (current) drug therapy; Z87.891 Personal history of nicotine dependence
CPT/HCPCS: 36415; 80048; 83735; 96374; 96375; 99283-25; A9270; J1100; J1170; J1200; J1885; J2060; J2550; J2765; J7042

== ENCOUNTER → 2022-05-09 | Outpatient (CLI) | payer OTHER ==
[2022-05-09 15:00] LABS: Source, Urine Clean Catch
[2022-05-09 16:43] LABS: Appearance, Urine Clear (Clear); Bilirubin, Urine Neg (Neg); Blood, Urine Neg (Neg); Glucose Qualitative, Urine Neg (Neg); Ketones, Urine Neg (Neg); Leukocyte Esterase, Urine Neg (Neg); Nitrite, Urine Neg (Neg); Protein, Urine 2+ (Neg); Specific Gravity, Urine 1.015 (1.003-1.022); Urobilinogen, Urine NORM (Normal)
[2022-05-09 17:15] LABS: Color, Urine Pale Yellow (P-Yellow)
[2022-05-09 17:16] LABS: Bacteria Rare /hpf; Red Blood Cells, Urine 0-2 /hpf (0-2); Squamous Epithelial Cells Few /hpf (Few); White Blood Cells, Urine 0-2 /hpf (0-5)
== END | disposition home or self-care (01) ==
LOC: LAB SHORT 14:58 → LAB 14:58
PROVIDERS: Student in an Organized Health Care Education/Training Program
DX: N18.31 Chronic kidney disease, stage 3a (principal)
CPT/HCPCS: 81001

== ENCOUNTER 2023-05-30 19:06 | Emergency (ER) | payer OTHER ==
[~2023-05-30] VITALS: Ht 167.6 cm; Wt 90.7 kg
[2023-05-30 20:03] LABS: BASOPHILS ABSOLUTE AUTO 0.04 K/mm3 (0.00-0.23); BASOPHILS PERCENT AUTO 1 % (0-2); EOSINOPHILS PERCENT AUTO 7 % (0-6); Hematocrit 35.5 % (33.0-51.0); Hemoglobin 11.8 g/dL (11.5-16.0); IMMATURE GRAN ABSOLUTE AUTO 0.01 K/mm3 (0.00-0.10); IMMATURE GRAN PERCENT AUTO 0 % (0-1); LYMPHOCYTES ABSOLUTE AUTO 1.86 K/mm3 (0.84-5.20); LYMPHOCYTES PERCENT AUTO 27 % (21-46); MONOCYTES ABSOLUTE AUTO 0.63 K/mm3 (0.16-1.47); MONOCYTES PERCENT AUTO 9 % (4-13); Mean Corpuscular HGB 28.9 pg (26.0-34.0); Mean Corpuscular HGB Conc 33.2 g/dL (31.5-36.5); Mean Corpuscular Volume 87 fL (80-100); NEUTROPHILS ABSOLUTE AUTO 3.98 K/mm3 (1.96-9.15); NEUTROPHILS PERCENT AUTO 57 % (41-73); Platelet Count 323 K/mm3 (150-400); RDW Coefficient Variation 14.6 % (11.7-14.2); RDW Standard Deviation 46.8 fL (35.1-46.3); Red Blood Cell Count 4.08 M/mm3 (3.80-5.20); White Blood Cell Count 7.02 K/mm3 (4.00-11.30)
[2023-05-30 20:09] LABS: Albumin, Blood 3.1 g/dL (3.4-5.0); Albumin/Globulin Ratio 0.9 (0.8-1.8); Bilirubin, Total 0.2 mg/dL (0.1-1.0); Bun/Creatinine Ratio 14.6 (12.0-20.0); Calcium, Blood 8.6 mg/dL (8.5-10.1); Creatinine, Blood 1.71 mg/dL (0.40-1.00); Globulin, Blood 3.4 g/dL (2.2-4.0); Potassium, Blood 4.4 mmol/L (3.5-5.5); Total Protein, Blood 6.5 g/dL (6.4-8.2)
[2023-05-30 23:36] VITALS: BP 209/102
[2023-05-30] MEDS ORDERED: LOSA50 PO (23:48)
== END 2023-05-30 23:58 | disposition home or self-care (01) ==
LOC: ER 19:06
PROVIDERS: Physician Assistant
DX: I16.0 Hypertensive urgency (principal); N17.9 Acute kidney failure, unspecified; F17.200 Nicotine dependence, unspecified, uncomplicated; Z88.2 Allergy status to sulfonamides; Z88.8 Allergy status to other drugs, medicaments and biological substances
CPT/HCPCS: 71046; 80053; 83880; 84484; 85025; 93005; 93010; 96374; 99284-25; A9270; J0360

== ENCOUNTER 2023-05-31 07:30 | Observation (INO) | payer OTHER ==
[~2023-05-31] VITALS: Ht 172.7 cm; Wt 93.2 kg
[2023-05-31] VITALS (34 sets, daily range): BP systolic 100–200; BP diastolic 53–123
[~2023-05-31 07:30] MED LIST changes: +LOSA50 PO
[2023-05-31 10:22] LABS: Albumin, Blood 3.4 g/dL (3.4-5.0); Bilirubin, Total 0.2 mg/dL (0.1-1.0); Bun/Creatinine Ratio 14.7 (12.0-20.0); Calcium, Blood 8.6 mg/dL (8.5-10.1); Creatinine, Blood 1.56 mg/dL (0.40-1.00); Globulin, Blood 3.5 g/dL (2.2-4.0); Magnesium, Blood 2.2 mg/dL (1.6-2.4); Potassium, Blood 4.4 mmol/L (3.5-5.5); Total Protein, Blood 6.9 g/dL (6.4-8.2)
[2023-05-31 12:04] LABS: BASOPHILS ABSOLUTE AUTO 0.03 K/mm3 (0.00-0.23); BASOPHILS PERCENT AUTO 0 % (0-2); EOSINOPHILS ABSOLUTE AUTO 0.45 K/mm3 (0.00-0.68); EOSINOPHILS PERCENT AUTO 5 % (0-6); Hematocrit 38.8 % (33.0-51.0); Hemoglobin 12.7 g/dL (11.5-16.0); IMMATURE GRAN ABSOLUTE AUTO 0.02 K/mm3 (0.00-0.10); IMMATURE GRAN PERCENT AUTO 0 % (0-1); LYMPHOCYTES PERCENT AUTO 15 % (21-46); MONOCYTES ABSOLUTE AUTO 0.58 K/mm3 (0.16-1.47); MONOCYTES PERCENT AUTO 7 % (4-13); Mean Corpuscular HGB 28.2 pg (26.0-34.0); Mean Corpuscular HGB Conc 32.7 g/dL (31.5-36.5); Mean Corpuscular Volume 86 fL (80-100); Mean Platelet Volume 10.1 fL (9.1-12.4); NEUTROPHILS ABSOLUTE AUTO 6.18 K/mm3 (1.96-9.15); NEUTROPHILS PERCENT AUTO 72 % (41-73); Platelet Count 337 K/mm3 (150-400); RDW Coefficient Variation 14.7 % (11.7-14.2); RDW Standard Deviation 46.4 fL (35.1-46.3); Red Blood Cell Count 4.51 M/mm3 (3.80-5.20); White Blood Cell Count 8.56 K/mm3 (4.00-11.30)
--- NOTE | 2023-05-31 14:50 | NUR ---
ARRIVAL TO ICU PT BROUGHT TO ICU 10 AT THIS TIME VIA GURNEY. PT ATTEMPTING TO SIT ON EDGE OF BED AND STS SHE FEELS NAUSEOUS AND NEEDS TO VOID. PT STANDS, DENIES DIZZINESS AND INDEPENDENTLY WALKS TO TOILET TO VOID. PT THEN WALKS TO SINK, WASHES HANDS AND POSITIONS SELF IN BED. SHE IS ALERT AND ORIENTED AT THIS TIME, EXPRESSES FEELING FRUSTRATED. SHE STS SHE HAS A 10/10 HEADACHE AND "NEEDS DILAUDID TO HELP HER SLEEP". EXPLAINED THAT THERE IS NO CURRENT ORDER FOR PAIN MANAGEMENT BUT PROVIDER WILL BE NOTIFIED. PT CLOSES EYES AND TURNS HEAD AWAY. SHE EXPRESSES CONCERN THAT IF SHE DOES NOT HAVE HER MEDICATION THAT THE HEADACHE WILL NOT GO AWAY. SHE PROCEEDS TO ASK IF SHE IS ABLE TO LEAVE AND GO HOME. PT ENCOURAGED TO STAY AT HOSPITAL AND PT AGREEABLE AT THIS TIME. SHE IS HYPERTENSIVE WITH SBP 170S-200S, DBP >100. NICARDIPINE GTT STARTED AT 1MCG/MIN WITH GOAL OF SBP <140. PT DENIES CP. SHE STS HEADACHE WORSENS WITH ACTIVITY AND IS DESCRIBED THROBBING WHEN HER HEART BEATS. PROVIDER NOTIFIED REGARDING REQUEST, HOME DOSE OF OXYCODONE AND PHENERGAN ORDERED. PT PROVIDED ICE WATER. LIGHTS DIMMED AND DOOR CLOSED FOR COMFORT. MEDICATED PER EMAR. BED IN LOW POSITION AND CALL LIGHT WITHIN REACH.
--- NOTE | 2023-05-31 17:23 | NUR ---
SUMMARY PT REMAINS ON LABETALOL GTT AT 0.5MG/MIN. PLACED ON STANDBY DUE TO SBP 103. OVER APPROXIMATELY 1 HOUR, SBP STEADILY INCREASED TO 148 AND DRIP WAS RESTARTED. PT REQUESTED UNINTERRUPTED REST "BECAUSE SLEEP IS THE ONLY THING THAT WILL MAKE MY HEADACHE GO AWAY". PT REMAINS ON CONTINUOUS MONITORING. BED IN LOW POSITION AND CALL LIGHT WITHIN REACH.
--- NOTE | 2023-05-31 21:15 | NUR ---
PT BP 117/82, LABETOLOL DRIP PUT ON SB AT THIS TIME
[2023-06-01] VITALS (14 sets, daily range): BP systolic 132–188; BP diastolic 59–109
[2023-06-01 03:48] LABS: Bun/Creatinine Ratio 12.7 (12.0-20.0); Calcium, Blood 8.5 mg/dL (8.5-10.1); Creatinine, Blood 1.73 mg/dL (0.40-1.00); Potassium, Blood 3.7 mmol/L (3.5-5.5); Thyroid Stimulating Hormone 10.4 uIU/mL (0.360-4.800)
--- NOTE | 2023-06-01 06:20 | NUR ---
SHIFT SUMMERY PT HAS HAD NO ACUTE CHANGES OVERNIGHT. SHE IS ALERT AND ORIENTED X4, MAEW-AMBULATORY TO COMMODE. LABETOLOL DRIP HAS BEEN OFF SINCE 2114 LAST NIGHT. SHE HAS BEEN SR, BP WNL, AFEBRILE. SHE IS ON ROOM AIR W/OXYGEN SAT >90%. SHE HAS COMPLAINTED OF A HEADACHE W/NAUSEA OVERNIGHT BUT HAS HAD NO VOMITING. SHE WAS MEDICATED PER EMAR AND RESTED COMFORTABLY W/OUT COMPLAINT IN BETWEEN TIME FOR HER MEDICATION FOR PAIN/NAUSEA TO BE AVAILABLE.
--- NOTE | 2023-06-01 07:04 | NUR ---
ASSUMPTION OF CARE LABETALOL DRIP OFF SINCE LAST NIGHT. SBP 130S-140S. SINUS RHYTHM ON MONITOR WITH RATE IN 60S. BED IN LOW POSITION, CALL LIGHT WITHIN REACH. SEE SHIFT ASSESSMENT.
[2023-06-01 08:08] LABS: Free Thyroxine 0.74 ng/dL (0.70-1.60); Triiodothyronine, Free 1.63 pg/mL (2.18-3.98)
--- NOTE | 2023-06-01 09:15 | NUR ---
UPDATE PT WOKEN FOR ECHO. POST ECHO, PT STS SHE CONTINUES TO HAVE A HEADACHE AND "FEELS LIKE NO ONE CARES". PT AGREES TO AM MEDICATIONS, REFUSES BREAKFAST TRAY. PT INDEPENDENTLY WALKS TO TOILET TO VOID. HR 60S, SBP 140S-160S. PT POSITIONS SELF IN BED. SHE BEGINS MOANING/SOBBING. DENIES ADDITIONAL NEEDS AT THIS TIME. BED IN LOW POSITION AND CALL LIGHT WITHIN REACH.
--- NOTE | 2023-06-01 12:13 | NUR ---
HEAD CT PT TAKEN TO CT VIA WHEELCHAIR. SHE IS NOW BACK IN ICU 10, CALL LIGHT WITHIN REACH.
[2023-06-01] MEDS ORDERED: LEVSOD112 PO (12:58)
--- NOTE | 2023-06-01 14:08 | NUR ---
DISCHARGE HOSPITALIST ROUNDED TO INFORM PT OF DISCHARGE. PT REQUESTS TO GET DRESSED. IV REMOVED AND PRIVACY GIVEN WHILE PT CHANGED. PRESCRIPTIONS FAXED TO [facility] PER PT REQUEST. PROVIDED MEDICATION EDUCATION, PT VERBALIZES UNDERSTANDING. SHE REQUESTS TO NOT WAIT FOR FINAL PAPERWORK. PT DENIES ASSISTANCE OUT OF DEPARMENT. ENCOURAGED PT TO RETURN TO HOSPITAL FOR WORSENING SYMPTOMS. PT AMBULATES WITH STEADY GAIT OUT OF DEPARTMENT AT 1410.
[2023-06-01] MEDS ORDERED: AMLO10 PO ×2 (15:07→15:09)
== END 2023-06-01 14:10 | disposition home or self-care (01) ==
LOC: ER 07:30 → ICUE 07:31
PROVIDERS: Student in an Organized Health Care Education/Training Program; ADMIT Hospitalist
DX: I16.1 Hypertensive emergency (principal); G43.909 Migraine, unspecified, not intractable, without status migrainosus; F32.9 Major depressive disorder, single episode, unspecified; E03.9 Hypothyroidism, unspecified; F17.200 Nicotine dependence, unspecified, uncomplicated; Z88.2 Allergy status to sulfonamides
CPT/HCPCS: 36415; 70450; 80048; 80053; 83735; 83880; 84439; 84443; 84481; 84484; 85025; 93005; 93010; 93306; 96365; 96372; 96375; 96376; 99291-25; A9270; G0378; J0360; J1170; J1200; J1650; J1790; J2765; J3475; J7060

== ENCOUNTER 2023-06-12 15:13 | Observation (INO) | payer OTHER ==
[~2023-06-12] VITALS: Ht 167.6 cm; Wt 92.0 kg
[~2023-06-12 15:13] MED LIST changes: +LEVSOD112 PO
[2023-06-12 15:55] LABS: BASOPHILS ABSOLUTE AUTO 0.08 K/mm3 (0.00-0.23); BASOPHILS PERCENT AUTO 1 % (0-2); EOSINOPHILS ABSOLUTE AUTO 0.15 K/mm3 (0.00-0.68); EOSINOPHILS PERCENT AUTO 1 % (0-6); Hematocrit 44.3 % (33.0-51.0); Hemoglobin 14.8 g/dL (11.5-16.0); IMMATURE GRAN ABSOLUTE AUTO 0.03 K/mm3 (0.00-0.10); IMMATURE GRAN PERCENT AUTO 0 % (0-1); LYMPHOCYTES PERCENT AUTO 21 % (21-46); MONOCYTES ABSOLUTE AUTO 0.62 K/mm3 (0.16-1.47); MONOCYTES PERCENT AUTO 6 % (4-13); Mean Corpuscular HGB 28.5 pg (26.0-34.0); Mean Corpuscular HGB Conc 33.4 g/dL (31.5-36.5); Mean Corpuscular Volume 85 fL (80-100); Mean Platelet Volume 9.6 fL (9.1-12.4); NEUTROPHILS ABSOLUTE AUTO 7.66 K/mm3 (1.96-9.15); NEUTROPHILS PERCENT AUTO 71 % (41-73); Platelet Count 506 K/mm3 (150-400); RDW Coefficient Variation 13.6 % (11.7-14.2); RDW Standard Deviation 42.5 fL (35.1-46.3); Red Blood Cell Count 5.19 M/mm3 (3.80-5.20); White Blood Cell Count 10.74 K/mm3 (4.00-11.30)
[2023-06-12] MEDS ORDERED: EUTHYROX125 MCG PO (16:04)
[2023-06-12] MEDS ORDERED: Atarax10 MG PO (16:05)
[2023-06-12 16:16] LABS: Albumin, Blood 4.1 g/dL (3.4-5.0); Albumin/Globulin Ratio 1.1 (0.8-1.8); Bilirubin, Total 0.5 mg/dL (0.1-1.0); Bun/Creatinine Ratio 14.1 (12.0-20.0); Calcium, Blood 9.4 mg/dL (8.5-10.1); Creatinine, Blood 1.63 mg/dL (0.40-1.00); Globulin, Blood 3.8 g/dL (2.2-4.0); Potassium, Blood 4.1 mmol/L (3.5-5.5); Total Protein, Blood 7.9 g/dL (6.4-8.2)
[2023-06-12 20:17] LABS: Magnesium, Blood 2.3 mg/dL (1.6-2.4)
[2023-06-13 00:09] LABS: Magnesium, Blood 1.8 mg/dL (1.6-2.4); Phosphorus, Blood 4.2 mg/dL (2.5-4.9)
[2023-06-13 00:25] VITALS: BP 145/83
[2023-06-13 01:00] VITALS: BP 136/93
--- NOTE | 2023-06-13 01:45 | NUR ---
TRANSFER NOTE THIS RN RECEIVED REPORT FROM CARMELLA IN THE ED. PT TRANSFERRED TO PCU 5. AMBULATED FROM [facility] TO BED. BP STABLE AT TIME OF ADMISSION. SBP 130-150'S SINCE ARRIVAL. SB/SR WITH NOTED T WAVE INVERSION; UNCHANGED FROM EKG'S. PT REPORTING 8/10 CHEST PAIN THAT SHE REPORTS CRUSHING/SQUEEZING, ALSO REPORTING HEADACHE THAT IS 8-9/10. THIS RN SPOKE TO MD ARAMBULA. ORDER FOR STAT TROPONIN, REPEAT EKG, AND 50MCG FENTANYL. NO RELIEF AFTER ADMINISTERRING PAIN MEDICATION. REPEAT EKG DONE; NO CHANGES NOTED BY THIS RN FROM PREVIOUS EKG. PT CONTINUED TO REPORT 9/10 CHEST PAIN. MD ARAMBULA NOTIFIED. MD WITH ORDER FOR NITRO PASTE. PT VERABLIZED NOT WANTING THIS MEDICATION D/T CURRENT HEADACHE. THIS RN SPOKE TO MD ARAMBULA REGARDING THIS, NO NEW ORDERS AT THIS TIME. THIS RN LET MD KNOW ABOUT CONTINUED CHEST PAIN. NO NEW ORDERS. MD RECOMMENDING TRYING NITRO PASTE. MD VERBALIZED THAT HE WOULD COME SEE THE PATIENT. BP REMAINS STABLE. HRR UNCHANGED. ON RA WITH SPO2 >92%. NO CHANGE TO PAIN AT THIS TIME. BED IN LOWEST POSITION AND CALL LIGHT WITHIN REACH.
[2023-06-13 02:00] VITALS: BP 129/91
[2023-06-13 03:00] VITALS: BP 104/72
--- NOTE | 2023-06-13 03:11 | NUR ---
PATIENT UPDATE SEE PREVIOUS NOTE REGARDING CHEST PAIN. MD ARAMBULA TO ROOM TO EVAL PATIENT. MD ARAMBULA CONSULTED MD BARROW REGARDING CONTINUED PAIN. MD WITH ORDER FOR IV DILAUDID Q4. MD ARAMBULA ALSO ORDERED HOME DOSE OF ANXIETY MEDICATION. SBP 100-110'S AT THIS TIME. SB/SR WITH HR 50-60'S. 0.5 MG IV DILAUDID GIVEN, PT REPORTING PAIN IS SUBSIDING AFTER ADMINISTRATION. BED IN LOWEST POSITION AND CALL LIGHT WITHIN REACH.
[2023-06-13 04:00] VITALS: BP 102/61
[2023-06-13 04:08] LABS: BASOPHILS ABSOLUTE AUTO 0.08 K/mm3 (0.00-0.23); BASOPHILS PERCENT AUTO 1 % (0-2); EOSINOPHILS ABSOLUTE AUTO 0.25 K/mm3 (0.00-0.68); EOSINOPHILS PERCENT AUTO 2 % (0-6); Hematocrit 42.8 % (33.0-51.0); Hemoglobin 14.1 g/dL (11.5-16.0); IMMATURE GRAN ABSOLUTE AUTO 0.06 K/mm3 (0.00-0.10); IMMATURE GRAN PERCENT AUTO 1 % (0-1); LYMPHOCYTES ABSOLUTE AUTO 2.54 K/mm3 (0.84-5.20); LYMPHOCYTES PERCENT AUTO 21 % (21-46); MONOCYTES ABSOLUTE AUTO 0.68 K/mm3 (0.16-1.47); MONOCYTES PERCENT AUTO 6 % (4-13); Mean Corpuscular HGB 28.6 pg (26.0-34.0); Mean Corpuscular HGB Conc 32.9 g/dL (31.5-36.5); Mean Corpuscular Volume 87 fL (80-100); NEUTROPHILS PERCENT AUTO 70 % (41-73); Platelet Count 481 K/mm3 (150-400); RDW Coefficient Variation 14.1 % (11.7-14.2); RDW Standard Deviation 44.7 fL (35.1-46.3); Red Blood Cell Count 4.93 M/mm3 (3.80-5.20); White Blood Cell Count 12.11 K/mm3 (4.00-11.30)
[2023-06-13 04:20] LABS: Albumin, Blood 3.9 g/dL (3.4-5.0); Anion Gap 7 mmol/L (6-16); Blood Urea Nitrogen 25 mg/dL (8-24); Bun/Creatinine Ratio 13.7 (12.0-20.0); CO2, Blood 23 mmol/L (21-32); Calcium, Blood 9.1 mg/dL (8.5-10.1); Chloride, Blood 107 mmol/L (98-108); Creatinine, Blood 1.82 mg/dL (0.40-1.00); Glomerular Filtration Rate 33 (60-); Glucose, Blood 101 mg/dL (70-99); Magnesium, Blood 2.2 mg/dL (1.6-2.4); Phosphorus, Blood 5.3 mg/dL (2.5-4.9); Potassium, Blood 4.2 mmol/L (3.5-5.5); Sodium, Blood 137 mmol/L (136-145)
--- NOTE | 2023-06-13 04:38 | NUR ---
SHIFT SUMMARY SEE PREVIOUS NOTES REGARDING ARRIVAL TO UNIT AND CHEST PAIN. PT IS CURRENTLY SLEEPING. CHEST PAIN REPORTED AT 5/10 PRIOR TO FALLING ASLEEP. BP STABLE WITH SBP 100-110'S. SB/SR WITH HR 50-60'S. ON RA WITH SPO2 >92%. A&O X4. CARDIOLOGY CONSULT PLACED. NO TELE EVENTS NOTED SINCE ARRIVAL TO THIS UNIT. BED IN LOWEST POSITION AND CALL LIGHT WITHIN REACH. THIS RN WILL REPORT TO ONCOMING RN.
[2023-06-13 07:28] VITALS: BP 123/69
[2023-06-13] MEDS ORDERED: Norco 5-325 Ta1 EACH PO (10:06)
[2023-06-13] MEDS ORDERED: PRAZ1 PO (10:06)
--- NOTE | 2023-06-13 11:22 | NUR ---
DISCHARGE NOTE PT WAS DISCHARGED FROM PCU AT 11:10. PT WAS EDUCATED ON DISCHARGE INSTRUCTIONS, NEW MEDICATIONS, AND FOLLOW UP INSTRUCTIONS BY NAEEM SIDDIQUI. IV CATHETER REMOVED W/O DIFFICULTY. PT MEDICATED WITH DILAUDID PER EMAR AND PHYSICIAN ORDERS PRIOR TO DISCHARGE. PT EXPRESSED INTEREST IN DRIVING SELF HOME; PT EDUCATED ON IMPORTANCE OF HAVING A OPERATIONS DIRECTOR WHILE ON NARCOTIC MEDICATIONS, SHE VOICED UNDERSTANDING OF THIS. PT'S FATHER PRESENT AT BEDSIDE PT'S OPERATIONS DIRECTOR. ABLE TO DRESS SELF. PT DECLINED STAFF ASSISTANCE TO PRIVATE VEHICLE, WALKED OUT OF ROOM WITH HER FATHER.
== END 2023-06-13 11:10 | disposition home or self-care (01) ==
LOC: ER 15:13 → PCU 15:14
PROVIDERS: Family Medicine; Physician Assistant; ADMIT Internal Medicine
DX: R07.89 Other chest pain (principal); I16.0 Hypertensive urgency; D72.828 Other elevated white blood cell count; G43.909 Migraine, unspecified, not intractable, without status migrainosus; E03.9 Hypothyroidism, unspecified; F17.210 Nicotine dependence, cigarettes, uncomplicated; I12.9 Hypertensive chronic kidney disease with stage 1 through stage 4 chronic kidney disease, or unspecified chronic kidney disease; N18.30 Chronic kidney disease, stage 3 unspecified; F32.9 Major depressive disorder, single episode, unspecified; Z88.2 Allergy status to sulfonamides
CPT/HCPCS: 36415; 71046; 71275; 80053; 80069; 83690; 83735; 84100; 84484; 85025; 93005; 93010; 96365; 96366; 96372; 96375; 96376; 99291-25; A9270; G0378; J0282; J1170; J1644; J2060; J2270; J2405; J3010; J7060; Q0177; Q9967

== ENCOUNTER 2023-06-22 20:37 | Emergency (ER) | payer OTHER ==
[~2023-06-22] VITALS: Ht 167.6 cm; Wt 90.7 kg
[~2023-06-22 20:37] MED LIST changes: +Atarax10 MG PO; +EUTHYROX125 MCG PO; +PRAZ1 PO
[2023-06-22 21:37] LABS: BASOPHILS ABSOLUTE AUTO 0.05 K/mm3 (0.00-0.23); BASOPHILS PERCENT AUTO 0 % (0-2); EOSINOPHILS ABSOLUTE AUTO 0.79 K/mm3 (0.00-0.68); EOSINOPHILS PERCENT AUTO 7 % (0-6); Hematocrit 37.6 % (33.0-51.0); Hemoglobin 12.8 g/dL (11.5-16.0); IMMATURE GRAN ABSOLUTE AUTO 0.03 K/mm3 (0.00-0.10); IMMATURE GRAN PERCENT AUTO 0 % (0-1); LYMPHOCYTES ABSOLUTE AUTO 2.24 K/mm3 (0.84-5.20); LYMPHOCYTES PERCENT AUTO 20 % (21-46); MONOCYTES ABSOLUTE AUTO 0.71 K/mm3 (0.16-1.47); MONOCYTES PERCENT AUTO 6 % (4-13); Mean Corpuscular HGB 29.3 pg (26.0-34.0); Mean Corpuscular Volume 86 fL (80-100); Mean Platelet Volume 9.9 fL (9.1-12.4); NEUTROPHILS ABSOLUTE AUTO 7.58 K/mm3 (1.96-9.15); NEUTROPHILS PERCENT AUTO 67 % (41-73); Platelet Count 334 K/mm3 (150-400); RDW Coefficient Variation 13.4 % (11.7-14.2); RDW Standard Deviation 42.6 fL (35.1-46.3); Red Blood Cell Count 4.37 M/mm3 (3.80-5.20)
[2023-06-22 21:41] LABS: Albumin, Blood 3.5 g/dL (3.4-5.0); Bilirubin, Total 0.4 mg/dL (0.1-1.0); Bun/Creatinine Ratio 27.6 (12.0-20.0); Calcium, Blood 9.3 mg/dL (8.5-10.1); Creatinine, Blood 1.81 mg/dL (0.40-1.00); Globulin, Blood 3.6 g/dL (2.2-4.0); Potassium, Blood 4.7 mmol/L (3.5-5.5); Total Protein, Blood 7.1 g/dL (6.4-8.2)
[2023-06-22 22:45] VITALS: BP 161/95
[2023-06-23] MEDS ORDERED: METOPROLOL TART5010 PO (14:38)
[2023-06-23] MEDS ORDERED: SPIRONOLACTONE50 MG PO (14:38)
== END 2023-06-22 22:58 | disposition left against medical advice (07) ==
LOC: ER 20:37
PROVIDERS: Emergency Medicine
DX: I13.10 Hypertensive heart and chronic kidney disease without heart failure, with stage 1 through stage 4 chronic kidney disease, or unspecified chronic kidney disease (principal); I43 Cardiomyopathy in diseases classified elsewhere; N18.9 Chronic kidney disease, unspecified; Z53.29 Procedure and treatment not carried out because of patient's decision for other reasons; Z88.2 Allergy status to sulfonamides; Z88.8 Allergy status to other drugs, medicaments and biological substances; Z79.890 Hormone replacement therapy; Z79.899 Other long term (current) drug therapy
CPT/HCPCS: 80053; 84484; 85025; 93005; 93010; 99285-25

== ENCOUNTER 2023-06-23 13:35 | Observation (INO) | payer OTHER ==
[~2023-06-23] VITALS: Ht 167.6 cm; Wt 90.7 kg
[2023-06-23] MEDS ORDERED: SPIRONOLACTONE50 MG PO (14:38)
[2023-06-23] MEDS ORDERED: METOPROLOL TART5010 PO (14:38)
[2023-06-23 14:44] LABS: BASOPHILS ABSOLUTE AUTO 0.07 K/mm3 (0.00-0.23); BASOPHILS PERCENT AUTO 1 % (0-2); EOSINOPHILS ABSOLUTE AUTO 0.86 K/mm3 (0.00-0.68); EOSINOPHILS PERCENT AUTO 9 % (0-6); Hematocrit 39.7 % (33.0-51.0); Hemoglobin 13.2 g/dL (11.5-16.0); IMMATURE GRAN ABSOLUTE AUTO 0.02 K/mm3 (0.00-0.10); IMMATURE GRAN PERCENT AUTO 0 % (0-1); LYMPHOCYTES ABSOLUTE AUTO 2.69 K/mm3 (0.84-5.20); LYMPHOCYTES PERCENT AUTO 27 % (21-46); MONOCYTES ABSOLUTE AUTO 0.79 K/mm3 (0.16-1.47); MONOCYTES PERCENT AUTO 8 % (4-13); Mean Corpuscular HGB 28.9 pg (26.0-34.0); Mean Corpuscular HGB Conc 33.2 g/dL (31.5-36.5); Mean Corpuscular Volume 87 fL (80-100); Mean Platelet Volume 9.8 fL (9.1-12.4); NEUTROPHILS ABSOLUTE AUTO 5.69 K/mm3 (1.96-9.15); NEUTROPHILS PERCENT AUTO 56 % (41-73); Platelet Count 369 K/mm3 (150-400); RDW Coefficient Variation 13.6 % (11.7-14.2); RDW Standard Deviation 43.4 fL (35.1-46.3); Red Blood Cell Count 4.57 M/mm3 (3.80-5.20); White Blood Cell Count 10.12 K/mm3 (4.00-11.30)
[2023-06-23 15:09] LABS: Albumin, Blood 3.5 g/dL (3.4-5.0); Bilirubin, Total 0.4 mg/dL (0.1-1.0); Bun/Creatinine Ratio 22.9 (12.0-20.0); Calcium, Blood 8.9 mg/dL (8.5-10.1); Creatinine, Blood 1.7 mg/dL (0.40-1.00); Globulin, Blood 3.6 g/dL (2.2-4.0); Potassium, Blood 4.2 mmol/L (3.5-5.5); Total Protein, Blood 7.1 g/dL (6.4-8.2)
[2023-06-23 16:49] LABS: International Normalized Ratio 0.94; Prothrombin Time Results 9.9 Sec (9.7-11.5)
[2023-06-23 17:00] VITALS: BP 163/92
== END 2023-06-23 18:21 | disposition left against medical advice (07) ==
LOC: ER 13:35 → MEDS 13:36
PROVIDERS: Student in an Organized Health Care Education/Training Program; ADMIT Student in an Organized Health Care Education/Training Program
DX: K92.0 Hematemesis (principal); F41.0 Panic disorder [episodic paroxysmal anxiety]; G89.29 Other chronic pain; M50.33 Other cervical disc degeneration, cervicothoracic region; R14.0 Abdominal distension (gaseous); E03.9 Hypothyroidism, unspecified; F32.A Depression, unspecified; Z53.29 Procedure and treatment not carried out because of patient's decision for other reasons; Z88.2 Allergy status to sulfonamides
CPT/HCPCS: 71046; 74177; 80053; 83690; 84484; 85025; 85610; 93005; 93010; 96361; 96374-59; 96375; 99285-25; A9270; C9113; J2405; J3010; J7030; Q9967

== ENCOUNTER 2023-07-02 14:55 | Emergency (ER) | payer OTHER ==
[~2023-07-02] VITALS: Ht 167.6 cm; Wt 93.0 kg
[~2023-07-02 14:55] MED LIST changes: +METOPROLOL TART5010 PO; +SPIRONOLACTONE50 MG PO
[2023-07-02 15:40] LABS: BASOPHILS ABSOLUTE AUTO 0.05 K/mm3 (0.00-0.23); BASOPHILS PERCENT AUTO 1 % (0-2); EOSINOPHILS ABSOLUTE AUTO 0.11 K/mm3 (0.00-0.68); EOSINOPHILS PERCENT AUTO 1 % (0-6); Hematocrit 43.7 % (33.0-51.0); Hemoglobin 14.2 g/dL (11.5-16.0); IMMATURE GRAN ABSOLUTE AUTO 0.02 K/mm3 (0.00-0.10); IMMATURE GRAN PERCENT AUTO 0 % (0-1); LYMPHOCYTES ABSOLUTE AUTO 1.48 K/mm3 (0.84-5.20); LYMPHOCYTES PERCENT AUTO 16 % (21-46); MONOCYTES ABSOLUTE AUTO 0.48 K/mm3 (0.16-1.47); MONOCYTES PERCENT AUTO 5 % (4-13); Mean Corpuscular HGB 29.2 pg (26.0-34.0); Mean Corpuscular HGB Conc 32.5 g/dL (31.5-36.5); Mean Corpuscular Volume 90 fL (80-100); Mean Platelet Volume 9.9 fL (9.1-12.4); NEUTROPHILS PERCENT AUTO 77 % (41-73); Platelet Count 364 K/mm3 (150-400); RDW Coefficient Variation 13.7 % (11.7-14.2); RDW Standard Deviation 45.1 fL (35.1-46.3); Red Blood Cell Count 4.87 M/mm3 (3.80-5.20); White Blood Cell Count 9.24 K/mm3 (4.00-11.30)
[2023-07-02 15:51] LABS: Albumin, Blood 3.5 g/dL (3.4-5.0); Albumin/Globulin Ratio 0.9 (0.8-1.8); Bilirubin, Total 0.6 mg/dL (0.1-1.0); Bun/Creatinine Ratio 11.5 (12.0-20.0); Calcium, Blood 8.7 mg/dL (8.5-10.1); Creatinine, Blood 1.48 mg/dL (0.40-1.00); Potassium, Blood 4.5 mmol/L (3.5-5.5); Total Protein, Blood 7.5 g/dL (6.4-8.2)
[2023-07-02 17:45] VITALS: BP 194/105
== END 2023-07-02 17:58 | disposition left against medical advice (07) ==
LOC: ER 14:55
PROVIDERS: Emergency Medicine
DX: I16.0 Hypertensive urgency (principal); I12.9 Hypertensive chronic kidney disease with stage 1 through stage 4 chronic kidney disease, or unspecified chronic kidney disease; N18.9 Chronic kidney disease, unspecified; Z88.2 Allergy status to sulfonamides; Z88.8 Allergy status to other drugs, medicaments and biological substances; Z79.899 Other long term (current) drug therapy; E03.9 Hypothyroidism, unspecified; F17.210 Nicotine dependence, cigarettes, uncomplicated
CPT/HCPCS: 70450; 80053; 84484; 85025; 93005; 93010; 96361; 96374; 96375; 96376; 99285-25; A9270; J0360; J1200; J1885; J2060; J2765; J7030

== ENCOUNTER 2023-07-13 19:13 | Emergency (ER) | payer OTHER ==
[~2023-07-13] VITALS: Ht 167.6 cm; Wt 90.7 kg
[2023-07-13 20:13] LABS: BASOPHILS ABSOLUTE AUTO 0.05 K/mm3 (0.00-0.23); BASOPHILS PERCENT AUTO 1 % (0-2); EOSINOPHILS PERCENT AUTO 3 % (0-6); Hematocrit 39.1 % (33.0-51.0); Hemoglobin 13.2 g/dL (11.5-16.0); IMMATURE GRAN ABSOLUTE AUTO 0.02 K/mm3 (0.00-0.10); IMMATURE GRAN PERCENT AUTO 0 % (0-1); LYMPHOCYTES ABSOLUTE AUTO 2.45 K/mm3 (0.84-5.20); LYMPHOCYTES PERCENT AUTO 27 % (21-46); MONOCYTES ABSOLUTE AUTO 0.51 K/mm3 (0.16-1.47); MONOCYTES PERCENT AUTO 6 % (4-13); Mean Corpuscular HGB 29.4 pg (26.0-34.0); Mean Corpuscular HGB Conc 33.8 g/dL (31.5-36.5); Mean Corpuscular Volume 87 fL (80-100); Mean Platelet Volume 10.1 fL (9.1-12.4); NEUTROPHILS ABSOLUTE AUTO 5.77 K/mm3 (1.96-9.15); NEUTROPHILS PERCENT AUTO 64 % (41-73); Platelet Count 375 K/mm3 (150-400); RDW Coefficient Variation 13.6 % (11.7-14.2); RDW Standard Deviation 43.6 fL (35.1-46.3); Red Blood Cell Count 4.49 M/mm3 (3.80-5.20)
[2023-07-13 20:18] LABS: Albumin, Blood 3.5 g/dL (3.4-5.0); Bilirubin, Total 0.2 mg/dL (0.1-1.0); Bun/Creatinine Ratio 17.5 (12.0-20.0); Calcium, Blood 8.8 mg/dL (8.5-10.1); Creatinine, Blood 1.77 mg/dL (0.40-1.00); Globulin, Blood 3.5 g/dL (2.2-4.0); Potassium, Blood 3.8 mmol/L (3.5-5.5)
[2023-07-13] MEDS ORDERED: EDARBI40 MG PO (21:33)
[2023-07-13] MEDS ORDERED: CATAPRES0.1 MG PO (21:33)
[2023-07-13] MEDS ORDERED: EUTHYROX125 MC1 PO (21:34)
[2023-07-14 00:30] VITALS: BP 126/71
== END 2023-07-14 00:50 | disposition home or self-care (01) ==
LOC: ER 19:13
PROVIDERS: Emergency Medicine
DX: I95.2 Hypotension due to drugs (principal); R07.2 Precordial pain; R42 Dizziness and giddiness; R11.0 Nausea; R20.2 Paresthesia of skin; T44.6X5A Adverse effect of alpha-adrenoreceptor antagonists, initial encounter; T44.8X5A Adverse effect of centrally-acting and adrenergic-neuron-blocking agents, initial encounter; T46.5X5A Adverse effect of other antihypertensive drugs, initial encounter; I10 Essential (primary) hypertension; G43.909 Migraine, unspecified, not intractable, without status migrainosus; E03.9 Hypothyroidism, unspecified; F32.9 Major depressive disorder, single episode, unspecified; F17.200 Nicotine dependence, unspecified, uncomplicated; Z79.899 Other long term (current) drug therapy; Z88.2 Allergy status to sulfonamides; Z88.8 Allergy status to other drugs, medicaments and biological substances
CPT/HCPCS: 71045; 80053; 83880; 84484; 85025; 85379; 93005; 93010; 96365; 96366; 99285-25; J3475; J7030

== ENCOUNTER 2023-07-18 13:22 | Emergency (ER) | payer OTHER ==
[~2023-07-18] VITALS: Ht 167.6 cm; Wt 90.7 kg
[~2023-07-18 13:22] MED LIST changes: +CATAPRES0.1 MG PO; +EDARBI40 MG PO; +EUTHYROX125 MC1 PO
[2023-07-18 13:24] VITALS: BP 140/83
[2023-07-18 13:48] LABS: BASOPHILS ABSOLUTE AUTO 0.08 K/mm3 (0.00-0.23); BASOPHILS PERCENT AUTO 1 % (0-2); EOSINOPHILS ABSOLUTE AUTO 0.05 K/mm3 (0.00-0.68); EOSINOPHILS PERCENT AUTO 1 % (0-6); IMMATURE GRAN ABSOLUTE AUTO 0.05 K/mm3 (0.00-0.10); IMMATURE GRAN PERCENT AUTO 1 % (0-1); LYMPHOCYTES ABSOLUTE AUTO 2.29 K/mm3 (0.84-5.20); LYMPHOCYTES PERCENT AUTO 21 % (21-46); MONOCYTES PERCENT AUTO 5 % (4-13); Mean Corpuscular HGB 29.4 pg (26.0-34.0); Mean Corpuscular Volume 86 fL (80-100); Mean Platelet Volume 9.8 fL (9.1-12.4); NEUTROPHILS ABSOLUTE AUTO 8.02 K/mm3 (1.96-9.15); NEUTROPHILS PERCENT AUTO 72 % (41-73); Platelet Count 526 K/mm3 (150-400); RDW Coefficient Variation 13.4 % (11.7-14.2); RDW Standard Deviation 42.7 fL (35.1-46.3); Red Blood Cell Count 5.79 M/mm3 (3.80-5.20); White Blood Cell Count 11.09 K/mm3 (4.00-11.30)
[2023-07-18 14:19] LABS: Albumin, Blood 4.3 g/dL (3.4-5.0); Albumin/Globulin Ratio 0.9 (0.8-1.8); Bilirubin, Total 0.7 mg/dL (0.1-1.0); Bun/Creatinine Ratio 17.7 (12.0-20.0); Creatinine, Blood 2.37 mg/dL (0.40-1.00); Globulin, Blood 4.8 g/dL (2.2-4.0); Potassium, Blood 4.3 mmol/L (3.5-5.5); Total Protein, Blood 9.1 g/dL (6.4-8.2)
== END 2023-07-18 15:38 | disposition left against medical advice (07) ==
LOC: ER 13:22
PROVIDERS: Student in an Organized Health Care Education/Training Program
DX: R03.1 Nonspecific low blood-pressure reading (principal); G43.909 Migraine, unspecified, not intractable, without status migrainosus; I10 Essential (primary) hypertension; F17.210 Nicotine dependence, cigarettes, uncomplicated
CPT/HCPCS: 80053; 84484; 85025; 93005; 93010; 99283-25

== ENCOUNTER 2023-07-28 15:30 | Emergency (ER) | payer OTHER ==
[~2023-07-28] VITALS: Ht 167.6 cm; Wt 90.7 kg
[2023-07-28 16:21] LABS: BASOPHILS ABSOLUTE AUTO 0.06 K/mm3 (0.00-0.23); BASOPHILS PERCENT AUTO 1 % (0-2); EOSINOPHILS ABSOLUTE AUTO 0.11 K/mm3 (0.00-0.68); EOSINOPHILS PERCENT AUTO 1 % (0-6); Hematocrit 38.6 % (33.0-51.0); Hemoglobin 13.1 g/dL (11.5-16.0); IMMATURE GRAN ABSOLUTE AUTO 0.02 K/mm3 (0.00-0.10); IMMATURE GRAN PERCENT AUTO 0 % (0-1); LYMPHOCYTES ABSOLUTE AUTO 1.26 K/mm3 (0.84-5.20); LYMPHOCYTES PERCENT AUTO 14 % (21-46); MONOCYTES ABSOLUTE AUTO 0.45 K/mm3 (0.16-1.47); MONOCYTES PERCENT AUTO 5 % (4-13); Mean Corpuscular HGB 29.2 pg (26.0-34.0); Mean Corpuscular HGB Conc 33.9 g/dL (31.5-36.5); Mean Corpuscular Volume 86 fL (80-100); Mean Platelet Volume 10.1 fL (9.1-12.4); NEUTROPHILS ABSOLUTE AUTO 7.15 K/mm3 (1.96-9.15); NEUTROPHILS PERCENT AUTO 79 % (41-73); Platelet Count 330 K/mm3 (150-400); RDW Coefficient Variation 13.1 % (11.7-14.2); RDW Standard Deviation 40.9 fL (35.1-46.3); Red Blood Cell Count 4.49 M/mm3 (3.80-5.20); White Blood Cell Count 9.05 K/mm3 (4.00-11.30)
[2023-07-28 16:48] LABS: Albumin, Blood 3.3 g/dL (3.4-5.0); Albumin/Globulin Ratio 0.9 (0.8-1.8); Bilirubin, Total 0.5 mg/dL (0.1-1.0); Bun/Creatinine Ratio 9.6 (12.0-20.0); Calcium, Blood 9.1 mg/dL (8.5-10.1); Creatinine, Blood 1.46 mg/dL (0.40-1.00); Globulin, Blood 3.6 g/dL (2.2-4.0); Potassium, Blood 3.8 mmol/L (3.5-5.5); Total Protein, Blood 6.9 g/dL (6.4-8.2)
[2023-07-28 16:49] VITALS: BP 198/94
== END 2023-07-28 17:21 | disposition home or self-care (01) ==
LOC: ER 15:30
PROVIDERS: Student in an Organized Health Care Education/Training Program
DX: R07.9 Chest pain, unspecified (principal); I10 Essential (primary) hypertension; E03.9 Hypothyroidism, unspecified; F17.210 Nicotine dependence, cigarettes, uncomplicated; Z88.2 Allergy status to sulfonamides; Z88.8 Allergy status to other drugs, medicaments and biological substances; Z88.5 Allergy status to narcotic agent; Z79.899 Other long term (current) drug therapy
CPT/HCPCS: 80053; 83880; 84484; 85025; 93005; 93010; 99285-25

== ENCOUNTER 2023-09-30 12:39 | Emergency (ER) | payer OTHER ==
[~2023-09-30] VITALS: Ht 167.6 cm; Wt 93.0 kg
[2023-09-30 13:14] LABS: BASOPHILS ABSOLUTE AUTO 0.04 K/mm3 (0.00-0.23); BASOPHILS PERCENT AUTO 0 % (0-2); EOSINOPHILS ABSOLUTE AUTO 0.08 K/mm3 (0.00-0.68); EOSINOPHILS PERCENT AUTO 1 % (0-6); Hematocrit 43.1 % (33.0-51.0); Hemoglobin 14.5 g/dL (11.5-16.0); IMMATURE GRAN ABSOLUTE AUTO 0.03 K/mm3 (0.00-0.10); IMMATURE GRAN PERCENT AUTO 0 % (0-1); LYMPHOCYTES ABSOLUTE AUTO 1.88 K/mm3 (0.84-5.20); LYMPHOCYTES PERCENT AUTO 19 % (21-46); MONOCYTES ABSOLUTE AUTO 0.62 K/mm3 (0.16-1.47); MONOCYTES PERCENT AUTO 6 % (4-13); Mean Corpuscular HGB 28.9 pg (26.0-34.0); Mean Corpuscular HGB Conc 33.6 g/dL (31.5-36.5); Mean Corpuscular Volume 86 fL (80-100); Mean Platelet Volume 9.2 fL (9.1-12.4); NEUTROPHILS ABSOLUTE AUTO 7.17 K/mm3 (1.96-9.15); NEUTROPHILS PERCENT AUTO 73 % (41-73); Platelet Count 460 K/mm3 (150-400); RDW Standard Deviation 40.3 fL (35.1-46.3); Red Blood Cell Count 5.01 M/mm3 (3.80-5.20); White Blood Cell Count 9.82 K/mm3 (4.00-11.30)
[2023-09-30 13:34] LABS: Bilirubin, Total 0.7 mg/dL (0.1-1.0); Bun/Creatinine Ratio 12.3 (12.0-20.0); Calcium, Blood 9.5 mg/dL (8.5-10.1); Creatinine, Blood 1.54 mg/dL (0.40-1.00); Potassium, Blood 5.2 mmol/L (3.5-5.5)
[2023-09-30 17:43] VITALS: BP 180/110
== END 2023-09-30 17:42 | disposition home or self-care (01) ==
LOC: ER 12:39
PROVIDERS: Physician Assistant
DX: R07.9 Chest pain, unspecified (principal); F41.9 Anxiety disorder, unspecified; I10 Essential (primary) hypertension; E03.9 Hypothyroidism, unspecified; F32.9 Major depressive disorder, single episode, unspecified; F17.210 Nicotine dependence, cigarettes, uncomplicated; Z88.2 Allergy status to sulfonamides; Z88.8 Allergy status to other drugs, medicaments and biological substances; Z79.899 Other long term (current) drug therapy; Z79.890 Hormone replacement therapy
CPT/HCPCS: 71046; 80053; 83880; 84484; 85025; 93005; 93010; 99285-25

== ENCOUNTER 2023-10-16 12:37 | Emergency (ER) | payer OTHER ==
[~2023-10-16] VITALS: Ht 167.6 cm; Wt 90.7 kg
[2023-10-16 12:45] VITALS: BP 165/128
[2023-10-16] MEDS ORDERED: Ondansetron HCl 2 MG / ML 2ML Vial IV ONE (13:40)
[2023-10-16] MEDS ORDERED: FentaNYL Citrate 50 MCG/ML 2 ML Injection IV ONE (13:40)
[2023-10-16] MEDS ORDERED: FentaNYL Citrate 50 MCG/ML 2 ML Injection IM ONE (14:15)
[2023-10-16] MEDS ORDERED: Ondansetron 4 MG SoluTab SL ONE (14:15)
[2023-10-16] MEDS ORDERED: FentaNYL Citrate 50 MCG/ML 2 ML Injection IM PRN (14:40)
[2023-10-16] MEDS ORDERED: HYDROmorphone HCl/Pf 1MG SYR IM ONE (14:55)
[2023-10-16] MEDS ORDERED: BACL10 PO (16:44)
== END 2023-10-16 16:53 | disposition home or self-care (01) ==
LOC: ER 12:37
DX: S39.012A Strain of muscle, fascia and tendon of lower back, initial encounter (principal); S29.012A Strain of muscle and tendon of back wall of thorax, initial encounter; F17.210 Nicotine dependence, cigarettes, uncomplicated; I10 Essential (primary) hypertension; G43.909 Migraine, unspecified, not intractable, without status migrainosus; F32.9 Major depressive disorder, single episode, unspecified; E03.9 Hypothyroidism, unspecified; Z79.899 Other long term (current) drug therapy; Z88.2 Allergy status to sulfonamides; Z88.8 Allergy status to other drugs, medicaments and biological substances; W18.2XXA Fall in (into) shower or empty bathtub, initial encounter; Y92.002 Bathroom of unspecified non-institutional (private) residence as the place of occurrence of the external cause; Y93.E1 Activity, personal bathing and showering
CPT/HCPCS: 72100; 99283-25; A9270; J1170; J3010

== ENCOUNTER 2023-12-26 11:51 | Emergency (ER) | payer OTHER ==
[~2023-12-26] VITALS: Ht 167.6 cm; Wt 97.5 kg
[~2023-12-26 11:51] MED LIST changes: +BACL10 PO; +CARV25 PO; +FURO20 PO; +MIRALAX17 GM PO
[2023-12-26] MEDS ORDERED: Morphine Sulfate 4 MG/1 ML Injection IV ONE (13:50)
[2023-12-26] MEDS ORDERED: Ondansetron HCl 2 MG / ML 2ML Vial IV ONE (13:50)
[2023-12-26] MEDS ORDERED: HYDROmorphone HCl/Pf 1MG SYR IV ONE (14:15)
[2023-12-26 14:18] LABS: BASOPHILS ABSOLUTE AUTO 0.06 K/mm3 (0.00-0.23); BASOPHILS PERCENT AUTO 1 % (0-2); EOSINOPHILS ABSOLUTE AUTO 0.11 K/mm3 (0.00-0.68); EOSINOPHILS PERCENT AUTO 1 % (0-6); Hemoglobin 14.6 g/dL (11.5-16.0); IMMATURE GRAN ABSOLUTE AUTO 0.04 K/mm3 (0.00-0.10); IMMATURE GRAN PERCENT AUTO 0 % (0-1); LYMPHOCYTES ABSOLUTE AUTO 1.91 K/mm3 (0.84-5.20); LYMPHOCYTES PERCENT AUTO 17 % (21-46); MONOCYTES ABSOLUTE AUTO 0.72 K/mm3 (0.16-1.47); MONOCYTES PERCENT AUTO 6 % (4-13); Mean Corpuscular Volume 86 fL (80-100); Mean Platelet Volume 9.1 fL (9.1-12.4); NEUTROPHILS ABSOLUTE AUTO 8.52 K/mm3 (1.96-9.15); NEUTROPHILS PERCENT AUTO 75 % (41-73); Platelet Count 391 K/mm3 (150-400); RDW Coefficient Variation 12.6 % (11.7-14.2); RDW Standard Deviation 39.2 fL (35.1-46.3); Red Blood Cell Count 5.03 M/mm3 (3.80-5.20); White Blood Cell Count 11.36 K/mm3 (4.00-11.30)
[2023-12-26] MEDS ORDERED: Phenergan25 M1 PO (14:20)
[2023-12-26] MEDS ORDERED: FUROSEMIDE20 MG PO (14:21)
[2023-12-26] MEDS ORDERED: KETALAR INH (14:23)
[2023-12-26 14:37] LABS: Albumin, Blood 4.1 g/dL (3.4-5.0); Albumin/Globulin Ratio 1.1 (0.8-1.8); Bilirubin, Total 0.8 mg/dL (0.1-1.0); Creatinine, Blood 1.45 mg/dL (0.40-1.00); Globulin, Blood 3.8 g/dL (2.2-4.0); Potassium, Blood 3.6 mmol/L (3.5-5.5); Total Protein, Blood 7.9 g/dL (6.4-8.2)
[2023-12-26] MEDS ORDERED: Metoclopramide HCl 5MG / ML 2ML Vial IV ONE (15:20)
[2023-12-26] MEDS ORDERED: Atropine Sulfate 0.4 MG/ML 20ML VIAL IV ONE (15:30)
[2023-12-26] MEDS ORDERED: DiphenhydrAMINE HCl 50 MG/ML 1ML Vial IV ONE (16:00)
[2023-12-26 16:12] VITALS: BP 188/111
[2023-12-26] MEDS ORDERED: DIPATR PO (16:22)
[2023-12-26] MEDS ORDERED: ONDA4ODT MM (16:22)
== END 2023-12-26 16:18 | disposition home or self-care (01) ==
LOC: ER 11:51
PROVIDERS: Student in an Organized Health Care Education/Training Program
DX: R11.2 Nausea with vomiting, unspecified (principal); R19.7 Diarrhea, unspecified; R10.11 Right upper quadrant pain; Z88.2 Allergy status to sulfonamides; Z88.8 Allergy status to other drugs, medicaments and biological substances; Z79.899 Other long term (current) drug therapy; G43.909 Migraine, unspecified, not intractable, without status migrainosus; I10 Essential (primary) hypertension; E03.9 Hypothyroidism, unspecified; F17.200 Nicotine dependence, unspecified, uncomplicated
CPT/HCPCS: 74177; 76705; 80053; 83690; 85025; 93005; 93010; 96374-59; 96375; 99284-25; J1170; J1200; J2405; J2765; Q9967

== ENCOUNTER 2024-03-05 14:33 | Emergency (ER) | payer OTHER ==
[~2024-03-05] VITALS: Ht 167.6 cm; Wt 102.5 kg
[~2024-03-05 14:33] MED LIST changes: +DIPATR PO; +FUROSEMIDE20 MG PO; +KETALAR INH
[2024-03-05] MEDS ORDERED: Ondansetron HCl 2 MG / ML 2ML Vial IV ONE (14:40)
[2024-03-05 15:14] LABS: BASOPHILS ABSOLUTE AUTO 0.04 K/mm3 (0.00-0.23); BASOPHILS PERCENT AUTO 1 % (0-2); EOSINOPHILS ABSOLUTE AUTO 0.39 K/mm3 (0.00-0.68); EOSINOPHILS PERCENT AUTO 6 % (0-6); Hematocrit 39.8 % (33.0-51.0); Hemoglobin 13.1 g/dL (11.5-16.0); IMMATURE GRAN ABSOLUTE AUTO 0.01 K/mm3 (0.00-0.10); IMMATURE GRAN PERCENT AUTO 0 % (0-1); LYMPHOCYTES ABSOLUTE AUTO 1.88 K/mm3 (0.84-5.20); LYMPHOCYTES PERCENT AUTO 28 % (21-46); MONOCYTES ABSOLUTE AUTO 0.83 K/mm3 (0.16-1.47); MONOCYTES PERCENT AUTO 12 % (4-13); Mean Corpuscular HGB 29.5 pg (26.0-34.0); Mean Corpuscular HGB Conc 32.9 g/dL (31.5-36.5); Mean Corpuscular Volume 90 fL (80-100); Mean Platelet Volume 9.6 fL (9.1-12.4); NEUTROPHILS ABSOLUTE AUTO 3.59 K/mm3 (1.96-9.15); NEUTROPHILS PERCENT AUTO 53 % (41-73); Platelet Count 314 K/mm3 (150-400); RDW Coefficient Variation 13.4 % (11.7-14.2); RDW Standard Deviation 44.3 fL (35.1-46.3); Red Blood Cell Count 4.44 M/mm3 (3.80-5.20); White Blood Cell Count 6.74 K/mm3 (4.00-11.30)
[2024-03-05 15:41] LABS: Albumin, Blood 3.5 g/dL (3.4-5.0); Albumin/Globulin Ratio 0.9 (0.8-1.8); Bilirubin, Total 0.3 mg/dL (0.1-1.0); Bun/Creatinine Ratio 12.7 (12.0-20.0); Creatinine, Blood 1.81 mg/dL (0.40-1.00); Globulin, Blood 3.9 g/dL (2.2-4.0); Magnesium, Blood 2.6 mg/dL (1.6-2.4); Total Protein, Blood 7.4 g/dL (6.4-8.2)
[2024-03-05 17:15] VITALS: BP 159/90
[2024-03-05] MEDS ORDERED: LORazepam 1 MG Tab PO ONE (17:40)
== END 2024-03-05 18:23 | disposition home or self-care (01) ==
LOC: ER 14:33
PROVIDERS: Physician Assistant
DX: F41.9 Anxiety disorder, unspecified (principal); Z88.2 Allergy status to sulfonamides; Z88.8 Allergy status to other drugs, medicaments and biological substances; Z79.899 Other long term (current) drug therapy; G43.909 Migraine, unspecified, not intractable, without status migrainosus; I10 Essential (primary) hypertension; E03.9 Hypothyroidism, unspecified; F17.200 Nicotine dependence, unspecified, uncomplicated
CPT/HCPCS: 80053; 83690; 83735; 84484; 85025; 93005; 93010; 96374; 99284-25; A9270; J2405

== ENCOUNTER 2024-04-14 08:47 | Inpatient (IN) | payer OTHER ==
[~2024-04-14] VITALS: Ht 167.6 cm; Wt 94.5 kg
[2024-04-14] VITALS (33 sets, daily range): BP systolic 131–215; BP diastolic 72–110
[2024-04-14 11:57] LABS: BASOPHILS ABSOLUTE AUTO 0.04 K/mm3 (0.00-0.23); BASOPHILS PERCENT AUTO 1 % (0-2); EOSINOPHILS ABSOLUTE AUTO 0.06 K/mm3 (0.00-0.68); EOSINOPHILS PERCENT AUTO 1 % (0-6); Hematocrit 40.9 % (33.0-51.0); IMMATURE GRAN ABSOLUTE AUTO 0.02 K/mm3 (0.00-0.10); IMMATURE GRAN PERCENT AUTO 0 % (0-1); LYMPHOCYTES ABSOLUTE AUTO 1.18 K/mm3 (0.84-5.20); LYMPHOCYTES PERCENT AUTO 16 % (21-46); MONOCYTES PERCENT AUTO 4 % (4-13); Mean Corpuscular HGB 29.8 pg (26.0-34.0); Mean Corpuscular HGB Conc 34.2 g/dL (31.5-36.5); Mean Corpuscular Volume 87 fL (80-100); Mean Platelet Volume 9.8 fL (9.1-12.4); NEUTROPHILS ABSOLUTE AUTO 5.95 K/mm3 (1.96-9.15); NEUTROPHILS PERCENT AUTO 79 % (41-73); Platelet Count 413 K/mm3 (150-400); RDW Coefficient Variation 13.4 % (11.7-14.2); RDW Standard Deviation 42.5 fL (35.1-46.3); White Blood Cell Count 7.55 K/mm3 (4.00-11.30)
[2024-04-14] MEDS ORDERED: Mag Hydrox/AL Hydrox/Simeth 30 ML UDC PO ONE (12:05)
[2024-04-14] MEDS ORDERED: Ondansetron HCl 2 MG / ML 2ML Vial IV ONE (12:05)
[2024-04-14] MEDS ORDERED: NS 1,000 ML IV SCH ×2 (12:05→14:50)
[2024-04-14 12:15] LABS: Albumin, Blood 3.9 g/dL (3.4-5.0); Bilirubin, Total 0.8 mg/dL (0.1-1.0); Bun/Creatinine Ratio 8.5 (12.0-20.0); Calcium, Blood 9.5 mg/dL (8.5-10.1); Creatinine, Blood 1.42 mg/dL (0.40-1.00); Globulin, Blood 3.9 g/dL (2.2-4.0); Potassium, Blood 4.1 mmol/L (3.5-5.5); Total Protein, Blood 7.8 g/dL (6.4-8.2)
[2024-04-14] MEDS ORDERED: Labetalol HCL 5 MG/ML 4ML Injection (Single Dose) IV ONE (12:25)
[2024-04-14] MEDS ORDERED: NiCARdipine HCL 50 MG in NS 250 ML IV SCH (13:50)
[2024-04-14] MEDS ORDERED: Morphine Sulfate 4 MG/1 ML Injection IV ONE (13:55)
[2024-04-14] MEDS ORDERED: Bisacodyl 10 MG Supp PR PRN (14:45)
[2024-04-14] MEDS ORDERED: Zolpidem Tartrate 5 MG Tab PO PRN (14:50)
[2024-04-14] MEDS ORDERED: Metoclopramide HCl 5MG / ML 2ML Vial IV PRN (14:50)
[2024-04-14] MEDS ORDERED: Ondansetron HCl 2 MG / ML 2ML Vial IV PRN (14:50)
[2024-04-14] MEDS ORDERED: Acetaminophen 325 MG TABLET PO PRN (14:50)
[2024-04-14] MEDS ORDERED: OxyCODONE HCL 5 MG TAB PO PRN (14:55)
[2024-04-14] MEDS ORDERED: Morphine Sulfate 4 MG/1 ML Injection IV PRN (14:55)
[2024-04-14] MEDS ORDERED: HyDROXyzine HCl 25 MG Tab PO PRN (14:55)
[2024-04-14 15:55] LABS: Source, Urine Clean Catch
[2024-04-14 15:58] LABS: Appearance, Urine Hazy (Clear); Bilirubin, Urine Neg (Neg); Blood, Urine Neg (Neg); Color, Urine Yellow (P-Yellow); Glucose Qualitative, Urine Neg (Neg); Ketones, Urine Neg (Neg); Leukocyte Esterase, Urine 2+ (Neg); Nitrite, Urine Neg (Neg); Protein, Urine 2+ (Neg); Urobilinogen, Urine NORM (Normal)
[2024-04-14 16:13] LABS: Bacteria Few /hpf; Red Blood Cells, Urine 0-2 /hpf (0-2); Squamous Epithelial Cells Few /hpf (Few); Transitional Epithelial Cells Few /hpf (0-Rare)
[2024-04-14] MEDS ORDERED: Pantoprazole Sodium 40 MG Injection IV SCH (16:30)
[2024-04-14] MEDS ORDERED: HYDROmorphone HCl/Pf 1MG SYR IV ONE (16:35)
--- NOTE | 2024-04-14 17:56 | NUR ---
PT ADMITTED TO ICU 8 FROM ER AT 1615. ON NICARDIPINE GTT AT 5MG/HR ON ARRIVAL. PT MOANING AND HOLDING R ABD WITH PAIN. PT STATES SHE IS UNABLE TO KEEP OXYCODONE DOWN AND MORPHINE MAKES HER "VIOLENTLY VOMIT". CALLED DR. VITALE WHO ORDERED DILAUDID. STANDBY ASSIST TO BATHROOM. USES CALL LIGHT APPROPRIATELY.
--- NOTE | 2024-04-14 19:00 | NUR ---
ASSUMED CARE OF PATIENT AT 1900. REPORT RECEIVED FROM ARTUR CHAVEZ. PT LYING DOWN IN BED MOANING, C/O RLQ PAIN AT 06/10. CONTINOUS CARIDAC MONITORING SHOWS SR WITH HR OF 82, BP 160/80. NICARDIPINE INFUSING AT 7.5 MG/HR. ON ROOM AIR WITH O2 SATURATION OF 100%. SEE SHIFT ASSESSMENT FOR FULL DETAILS.
[2024-04-14] MEDS ORDERED: HYDROmorphone HCl/Pf 1MG SYR IV PRN ×2 (19:50→20:05)
[2024-04-14] MEDS ORDERED: Lactobacil 2-S.Thermo-Bifido 1 1 Cap PO SCH (21:00)
[2024-04-14] MEDS ORDERED: Docusate Sodium 100 MG Cap PO SCH (21:00)
[2024-04-15] VITALS (42 sets, daily range): BP systolic 125–182; BP diastolic 71–110
[2024-04-15 03:32] LABS: BASOPHILS ABSOLUTE AUTO 0.04 K/mm3 (0.00-0.23); BASOPHILS PERCENT AUTO 1 % (0-2); EOSINOPHILS ABSOLUTE AUTO 0.14 K/mm3 (0.00-0.68); EOSINOPHILS PERCENT AUTO 2 % (0-6); Hematocrit 40.2 % (33.0-51.0); Hemoglobin 13.3 g/dL (11.5-16.0); IMMATURE GRAN ABSOLUTE AUTO 0.02 K/mm3 (0.00-0.10); IMMATURE GRAN PERCENT AUTO 0 % (0-1); LYMPHOCYTES ABSOLUTE AUTO 1.66 K/mm3 (0.84-5.20); LYMPHOCYTES PERCENT AUTO 24 % (21-46); MONOCYTES ABSOLUTE AUTO 0.58 K/mm3 (0.16-1.47); MONOCYTES PERCENT AUTO 8 % (4-13); Mean Corpuscular HGB 29.4 pg (26.0-34.0); Mean Corpuscular HGB Conc 33.1 g/dL (31.5-36.5); Mean Corpuscular Volume 89 fL (80-100); Mean Platelet Volume 9.5 fL (9.1-12.4); NEUTROPHILS PERCENT AUTO 65 % (41-73); Platelet Count 355 K/mm3 (150-400); RDW Coefficient Variation 13.4 % (11.7-14.2); Red Blood Cell Count 4.53 M/mm3 (3.80-5.20); White Blood Cell Count 7.04 K/mm3 (4.00-11.30)
[2024-04-15 03:54] LABS: Albumin, Blood 3.2 g/dL (3.4-5.0); Bilirubin, Total 0.8 mg/dL (0.1-1.0); Bun/Creatinine Ratio 7.7 (12.0-20.0); Calcium, Blood 8.5 mg/dL (8.5-10.1); Creatinine, Blood 1.3 mg/dL (0.40-1.00); Globulin, Blood 3.3 g/dL (2.2-4.0); Potassium, Blood 3.4 mmol/L (3.5-5.5); Total Protein, Blood 6.5 g/dL (6.4-8.2)
[2024-04-15] MEDS ORDERED: Potassium Chloride 40 MEQ in NS 250 ML IV ONE (05:05)
--- NOTE | 2024-04-15 05:23 | NUR ---
SHIFT SUMMARY PT REMAINED ALERT AND ORIENTED X 4 T/O ENTIRETY OF SHIFT. ABLE TO FOLLOW COMMANDS, MAKE PURPOSEFUL MOVEMENTS, AND MAKE NEEDS KNOWN. AFEBRILE. MEDICATED FOR PAIN PER EMAR WITH GOOD BENEFIT. NICARDIPINE ON SB SINCE APPROXIMATELY 2230. SBP 130'S-160'S. HR 50'S-80'S. ON ROOM AIR WITH O2 SATURATIONS > 92%. PT REFUSED ALL PO MEDS STATING SHE DID NOT WANT TO THROW UP. REFUSED IV ANTI-NAUSEA MEDICATION. NO BM THIS SHIFT. VOIDED INDEPENDENTLY AT BEDSIDE WITH CORD/LINE GUIDANCE. KCL INFUSING. WILL CONTINUE TO MONITOR AND REPORT TO ONCOMING RN.
[2024-04-15] MEDS ORDERED: Levothyroxine Sodium 0.125 MG Tab PO SCH (06:00)
[2024-04-15] MEDS ORDERED: HYDROmorphone HCl/Pf 1MG SYR IV PRN (07:30)
[2024-04-15] MEDS ORDERED: HydrALAZINE HCl 20 MG / ML 1ML Vial IV PRN (07:35)
[2024-04-15] MEDS ORDERED: Carvedilol 25 MG Tab PO SCH (08:00)
[2024-04-15] MEDS ORDERED: CefTRIAXone Sodium 1,000 MG in NS 100 ML IV SCH (09:00)
[2024-04-15] MEDS ORDERED: Furosemide 20 MG Tab PO SCH (09:00)
[2024-04-15] MEDS ORDERED: Losartan Potassium 50 MG Tab PO SCH (09:00)
--- NOTE | 2024-04-15 09:00 | NUR ---
PT A/O X4. RESTING QUIETLY WITH EYE'S CLOSED WHEN ENTERING THE ROOM. WHEN DISTURBED PT C/O ABD PAIN, MOANS AND GROANS. REQUESTING DILAUDID PAIN MEDS. PT REFUSES PO PAIN MEDS, REFUSES ZOFRAN, REFUSES PO CARDIAC MEDS STATING SHE DOESN'T WANT TO VOMIT.
[2024-04-15] MEDS ORDERED: HydrALAZINE HCl 20 MG / ML 1ML Vial IV SCH (12:00)
--- NOTE | 2024-04-15 13:28 | NUR ---
Ethics consult order processed. Medical history, social matrix, and multidisciplinary notes reviewed. The principal is reported to be afflicted with labile hypertension. She is persistently unreceptive to the administration of oral alalgesics and stabalizing blood pressure medications. She is also declining intraveneous nauseau treatment. The principal is apparently vocal and decisive about her exclusive preference for Dilaudid.If her adamant resistance to the clinically appropriate and requisite course of care continues, I would recommend informing her, that such actions unabated will unfortunately result in a discharge against medical advice. The provider bears no liability in situations where a patients choices are preventing recovery, or obfuscating intervention and healing. 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 sane and able to reason, and make decisions independanty, notwithstanding the ostensible evidence of poor judgement. Thank you for this consult. Jame Wang, PhD, CK
[2024-04-15] MEDS ORDERED: NS 1,000 ML IV SCH (14:50)
--- NOTE | 2024-04-15 18:11 | NUR ---
SUMMARY PT A/O X4. UP WITH MINIMAL ASSIST WITH LINES AND CORDS TO BATHROOM. PT REFUSING TO TAKE PO BP MEDS BECAUSE SHE DOESN'T WANT TO VOMIT. HAS HAD ANTIEMETIC MEDS A COUPLE TIMES TODAY. WILL TAKE PO PAIN MEDS AND IV MEDS. ON SCHEDULED HYDRALAZINE IV FOR BP. STABLE TODAY. WILL BE TRANSFERING TO MEDICAL FLOOR.
[2024-04-16 00:01] VITALS: BP 150/66
[2024-04-16 02:20] VITALS: BP 156/69
[2024-04-16 06:34] VITALS: BP 164/88
[2024-04-16 06:44] VITALS: BP 148/76
--- NOTE | 2024-04-16 06:46 | NUR ---
NOC SHIFT SUMMARY PT HAS BEEN REFUSING ALL ORAL MEDS. SAYS EVERYTHING MAKES HER WANT TO VOMIT. OF NOTE, SHE HAS NOT VOMITED ONCE THIS SHIFT. GAVE ZOFRAN BUT PT DIDNT WANT THE REGLAN, IT GIVES HER RESTLESS LEGS. SHE REPORTS BEING IN SEVERE ABDOMINAL PAIN BUT HASNT WANTED TO TAKE ANY OXYCODONE THIS MORNING BECAUSE SHE SAYS IT WILL MAKE HER VOMIT. SHE DID TAKE OXYCODONE AT BEDTIME LAST NIGHT AND SHE DID NOT THROW IT UP. SHE SAYS THE IV DILAUDID IS THE ONLY THING THAT WORKS FOR HER PAIN. GIVING IV HYDRALAZINE SCHEDULED Q6 AND IT HAS BEEN EFFECTIVE (SEE VITALS FLOWSHEET). NS@100, PT IS NOT EATING OR DRINKING. I ASKED HER IF SHE WANTED ME TO CALL SOMEONE FOR HER BUT SHE SAYS SHE DOESNT HAVE ANY SUPPORT.
[2024-04-16 07:41] VITALS: BP 167/90
[2024-04-16 08:43] LABS: BASOPHILS ABSOLUTE AUTO 0.06 K/mm3 (0.00-0.23); BASOPHILS PERCENT AUTO 1 % (0-2); EOSINOPHILS ABSOLUTE AUTO 0.12 K/mm3 (0.00-0.68); EOSINOPHILS PERCENT AUTO 1 % (0-6); Hematocrit 42.5 % (33.0-51.0); Hemoglobin 14.1 g/dL (11.5-16.0); IMMATURE GRAN ABSOLUTE AUTO 0.04 K/mm3 (0.00-0.10); IMMATURE GRAN PERCENT AUTO 0 % (0-1); LYMPHOCYTES PERCENT AUTO 14 % (21-46); MONOCYTES ABSOLUTE AUTO 0.52 K/mm3 (0.16-1.47); MONOCYTES PERCENT AUTO 5 % (4-13); Mean Corpuscular HGB 29.6 pg (26.0-34.0); Mean Corpuscular HGB Conc 33.2 g/dL (31.5-36.5); Mean Corpuscular Volume 89 fL (80-100); Mean Platelet Volume 9.5 fL (9.1-12.4); NEUTROPHILS ABSOLUTE AUTO 8.88 K/mm3 (1.96-9.15); NEUTROPHILS PERCENT AUTO 80 % (41-73); Platelet Count 394 K/mm3 (150-400); RDW Coefficient Variation 13.8 % (11.7-14.2); RDW Standard Deviation 45.5 fL (35.1-46.3); Red Blood Cell Count 4.76 M/mm3 (3.80-5.20); White Blood Cell Count 11.12 K/mm3 (4.00-11.30)
[2024-04-16] MEDS ORDERED: Docusate Sodium 100 MG Cap PO SCH (09:00)
[2024-04-16] MEDS ORDERED: Sennosides 8.6 MG Tab PO SCH (09:00)
[2024-04-16 09:04] LABS: Bun/Creatinine Ratio 9.8 (12.0-20.0); Creatinine, Blood 1.32 mg/dL (0.40-1.00); Phosphorus, Blood 3.4 mg/dL (2.5-4.9); Potassium, Blood 3.8 mmol/L (3.5-5.5)
[2024-04-16 12:05] VITALS: BP 186/89
[2024-04-16] MEDS ORDERED: HYDHCL25 PO (12:22)
[2024-04-16] MEDS ORDERED: DOCU100 PO (12:22)
[2024-04-16] MEDS ORDERED: CARV25 PO (12:22)
[2024-04-16] MEDS ORDERED: LOSA50 PO (12:23)
--- NOTE | 2024-04-16 12:36 | NUR ---
SHIFT/DISCHARGE SUMMARY: PATIENT A/OX4, ANXIOUS AT TIMES, USES CALL LIGHT APPROPRIATELY AND ABLE TO MAKE NEEDS KNOWN. PATIENT REFUSED PO AM SCHEDULED MEDS PER EMAR. PATIENT REPORTS PAIN 10/10 TO ABDOMEN AND REQUESTING IV PAIN MEDS ONLY. OFFERED PO PAIN MEDS BUT CONTINUES TO DECLINE. DR. BARROW DC'D IV PAIN MEDS AT 1141, FINALLY, PATIENT AGREED TO TAKE PO PAIN MEDS. PER PATIENT "IF I'M NOT GETTING MY IV PAIN MEDS MINE WELL GOING HOME." HYPERTENSIVE, DECLINE PO BP MEDS. MEDICATED c IV HYDRALAZINE PER EMAR. PATIENT REPORTS NAUSEA BUT NO VOMITING. DENIES CP/PRESSURE, SOB AND DIZZINESS. POWERGLIDE DC'D. PATIENT DISCHARGE HOME. DISCHARGE INSTRUCTIONS PACKET GIVEN TO PATIENT. EDUCATE PATIENT REGARDING ADMITTING DX'S OF HYPERTENSIVE EMERGENCY, S/S, TX, TO TAKE PERSCRIBED BP MEDS, SELF CARE AND F/U c PCP. PATIENT VERBALIZED UNDERSTANDING AND NO FURTHER QUESTIONS. RX WAS FAXED TO PATIENT PREFERRED PHARMACY-[facility]. ALL PATIENT PERSONAL BELONGINGS WERE SENT HOME c THE PATIENT. PATIENT REFUSED TO BE TRANSPORTED VIA WHEELCHAIR. PATIENT LEFT THE ROOM AT 1228. PATIENT DAD CALLED DR. BARROW REQUESTING PO PAIN MEDS TO PRESCRIBED HER BEFORE LEAVING THE HOSPITAL. DR. BARROW CAME AT 1240, PATIENT ALREADY LEFT. THIS RN NOTIFIED PATIENT REGARDING OXYCODONE PAIN MEDS HARD SCRIPT THAT SHE NEEDS TO COME BACK AND OFFICE EQUIPMENT MECHANIC HER HARD SCRIPTS. PER PATIENT I WILL SEND MY DAD TO GET FOR ME."
== END 2024-04-16 12:28 | disposition home or self-care (01) | DRG 305 ==
LOC: ER 08:47 → MEDS 14:44 → ICUE 14:44 → MEDS 04-15 18:45
PROVIDERS: Physician Assistant; ADMIT Hospitalist
DX: I16.1 Hypertensive emergency (principal); K92.0 Hematemesis; F11.20 Opioid dependence, uncomplicated; R10.31 Right lower quadrant pain; G43.909 Migraine, unspecified, not intractable, without status migrainosus; F41.9 Anxiety disorder, unspecified; E03.9 Hypothyroidism, unspecified; F32.9 Major depressive disorder, single episode, unspecified; F17.210 Nicotine dependence, cigarettes, uncomplicated; I16.0 Hypertensive urgency; I10 Essential (primary) hypertension; M54.9 Dorsalgia, unspecified; G89.29 Other chronic pain; Z88.8 Allergy status to other drugs, medicaments and biological substances; Z79.899 Other long term (current) drug therapy; Z79.890 Hormone replacement therapy; Z88.2 Allergy status to sulfonamides; Z79.01 Long term (current) use of anticoagulants; Z98.890 Other specified postprocedural states; Z90.89 Acquired absence of other organs; Z90.710 Acquired absence of both cervix and uterus; Z87.19 Personal history of other diseases of the digestive system
CPT/HCPCS: 36415; 74177; 80048; 80053; 81001; 83690; 83735; 84100; 85025; 87086; 94762; 96361; 96374-59; 96375; 99285-25; A9270; C1751; J0360; J0696; J1170; J2270; J2405; J2470; J2765; J3480; J7030; J7050; Q9967

== ENCOUNTER 2024-04-30 08:38 | Emergency (ER) | payer OTHER ==
[~2024-04-30 08:38] MED LIST changes: +DOCU100 PO
== END 2024-04-30 09:02 | disposition left against medical advice (07) ==
LOC: ER 08:38
DX: F41.9 Anxiety disorder, unspecified (principal); Z53.21 Procedure and treatment not carried out due to patient leaving prior to being seen by health care provider

== ENCOUNTER 2024-04-30 09:46 | Emergency (ER) | payer OTHER ==
[~2024-04-30] VITALS: Ht 167.6 cm; Wt 97.5 kg
[2024-04-30 10:12] VITALS: BP 143/98
== END 2024-04-30 11:17 | disposition left against medical advice (07) ==
LOC: ER 09:46
DX: F41.9 Anxiety disorder, unspecified (principal); Z53.21 Procedure and treatment not carried out due to patient leaving prior to being seen by health care provider